=== PATIENT | female | born 1955 | race Caucasian/White ===

== ENCOUNTER → 2019-10-17 16:11 | Outpatient (CLI) | payer OTHER, SELFPAY ==
--- NOTE | ~2019-10-17 | MM_ITS ---
EXAMINATION: MM screening [facility] BI w sharif HISTORY: Screening mammogram TECHNIQUE: Craniocaudal and mediolateral oblique 3-D tomosynthesis images were obtained and synthetic 2-D images were generated. CAD analysis was submitted and interpreted. COMPARISON: 09/23/2018, 09/03/2016, 07/13/2015 bilateral digital screening mammogram examinations BREAST PARENCHYMAL COMPOSITION: There are scattered areas of fibroglandular density. FINDINGS: There is no evidence of suspicious mass, calcification, or architectural distortion to sugg est malignancy in either breast. There has been no suspicious interval change. IMPRESSION: 1. No mammographic evidence of malignancy. 2. Recommend routine screening mammography in one year. BI-RADS Category 1: Negative Reviewed, dictated and finalized at location A.
== END ==
PROVIDERS: PCP Family Medicine Adolescent Medicine; Visit Provider Student in an Organized Health Care Education/Training Program
DX: Z12.31 Encounter for screening mammogram for malignant neoplasm of breast (principal)
CPT/HCPCS: 77063; 77067

== ENCOUNTER 2020-06-18 01:47 | Outpatient (CLI) | payer OTHER, SELFPAY ==
[2020-06-18 20:40] LABS: SARS-CoV-2 RNA PCR Negative
== END 2020-06-18 01:48 | disposition home or self-care (01) ==
LOC: ANHCOVIDDT 01:48
PROVIDERS: PCP Family Medicine Adolescent Medicine; Visit Provider Otolaryngology
DX: Z01.812 Encounter for preprocedural laboratory examination (principal); Z11.59 Encounter for screening for other viral diseases
CPT/HCPCS: 87635; C9803; U0003

== ENCOUNTER 2020-06-18 10:04 | Outpatient (CLI) | payer OTHER, SELFPAY ==
--- NOTE | 2020-06-18 10:07 | ECG_ITS ---
Measurements Intervals [place] Rate: 78 P: 24 WA: 160 QRS: -3 QRSD: 89 T: 55 QT: 355 QTc: 405 Interpretive Statements SINUS RHYTHM VOLTAGE CRITERIA FOR LVH BORDERLINE R WAVE PROGRESSION, ANTERIOR LEADS NONSPECIFIC T-WAVE ABNORMALITY- DIFFUSE LEADS BASELINE ARTIFACT- I, II, III, AVR, AVL BORDERLINE ECG Electronically Signed On 06-18-2020 13:45:25 BUSINESS SERVICES SALES REPRESENTATIVE by Kain Romo D.O.
== END 2020-06-18 10:05 | disposition home or self-care (01) ==
LOC: ANHSURGERY 10:07
PROVIDERS: PCP Family Medicine Adolescent Medicine; Visit Provider Otolaryngology
DX: Z01.810 Encounter for preprocedural cardiovascular examination (principal); E78.00 Pure hypercholesterolemia, unspecified
CPT/HCPCS: 87635; 93005; C9803; U0003

== ENCOUNTER 2020-06-21 00:39 | Day surgery (SDC) | payer OTHER, SELFPAY ==
[2020-06-12 14:22] VITALS: BMI 33.3
--- NOTE | 2020-06-20 06:11 | PM.HPGS ---
History of Present Illness History of Present Illness Consent: Risks, benefits, and alternatives have been discussed and questions answered. Patient agrees to proceed with procedure. Chief complaint: nasal septal deviation Narrative: Richelle Madrigal is a 64 year old female has a deviated septum unable to breathe out of the side of her nose she has been unresponsive to medical management and is admitted for septo Review of Systems Review of Systems: All systems reviewed & are unremarkable except as noted in HPI and below Allergic/Immunologic: Comments: plan is a septoplasty [facility] Social History Social History (Updated 05/31/20 @ 14:44 by Isi Lopez [facility]) Smoking status: Never smoker Tobacco type: cigarettes Second hand tobacco smoke exposure: No Alcohol intake: current Substance use: never Spiritual care concerns: No Meds Home Medications and Allergies Home Medications Medication Instructions Recorded Confirmed Type atorvastatin 10 mg tablet 10 mg PO DAILY 05/31/20 06/12/20 History buspirone 15 mg tablet 15 mg PO BID 05/31/20 06/12/20 History diclofenac sodium 75 mg 75 mg PO BID 05/31/20 06/12/20 History tablet,delayed release mirtazapine 30 mg tablet 30 mg PO HS 05/31/20 06/12/20 History oxybutynin chloride 5 mg 10 mg PO DAILY 05/31/20 06/12/20 History tablet,extended release 24 hr topiramate 50 mg tablet 50 mg PO BID 05/31/20 06/12/20 History venlafaxine 100 mg tablet 100 mg PO BID 05/31/20 06/12/20 History Vitamin Code 2 cap PO DAILY 06/12/20 History ascorbic acid (vitamin C) [Vitamin 1 g PO DAILY 06/12/20 06/12/20 History C] flaxseed oil 1,000 mg PO DAILY 06/12/20 06/12/20 History levothyroxine 75 mcg PO DAILY 06/12/20 06/12/20 History magnesium 250 mg PO DAILY 06/12/20 06/12/20 History omega-3 fatty acids [[place] 3] 1,000 mg PO DAILY 06/12/20 06/12/20 History Allergies Allergy/AdvReac Type Severity Reaction Status Date / Time No Known Allergies Allergy Verified 06/12/20 14:23
--- NOTE | 2020-06-21 06:20 | WPDHPUPDATE1 ---
History and Physical Update Update Date/Time: 06/21/20 06:20 History and Physical has been reviewed, including an updated exam of the patient. There are NO changes in the patient's condition. Risks, benefits, and alternatives have been discussed and questions answered. Patient agrees to proceed with procedure.
[2020-06-21 07:00] VITALS: BP 126/72; PULSE 79; RESP 18; TEMP 36.2; O2SAT 97
[2020-06-21] MEDS: LACTATED RINGERS 1,000 ML 30 ML IV CONT (07:37)
[2020-06-21] MEDS: ACETAMINOPHEN 500 MG TABLET 1000 MG PO (07:38)
--- NOTE | 2020-06-21 07:50 | P.PNAN_ITS ---
Anes - Initial Pre Proc Eval Procedure: Operation Date: 06/21/20 08:15 Proposed Procedures p Septoplasty - Vinod Gutierrez MD Date/Time: 06/21/20 07:50 Surgeon: Vinod Gutierrez MD Pre Op Diagnosis: nasal septal deviation Patient Data Age: 64 Gender: F Height: 5 ft 2 in Weight: 82.55 kg Allergies Allergy/AdvReac Type Severity Reaction Status Date / Time No Known Allergies Allergy Verified 06/12/20 14:23 Home Medications Medication Instructions Recorded Confirmed Type atorvastatin 10 mg tablet 10 mg PO DAILY 05/31/20 06/12/20 History buspirone 15 mg tablet 15 mg PO BID 05/31/20 06/12/20 History diclofenac sodium 75 mg 75 mg PO BID 05/31/20 06/12/20 History tablet,delayed release mirtazapine 30 mg tablet 30 mg PO HS 05/31/20 06/12/20 History oxybutynin chloride 5 mg 10 mg PO DAILY 05/31/20 06/12/20 History tablet,extended release 24 hr topiramate 50 mg tablet 50 mg PO BID 05/31/20 06/12/20 History venlafaxine 100 mg tablet 100 mg PO BID 05/31/20 06/12/20 History Vitamin Code 2 cap PO DAILY 06/12/20 History ascorbic acid (vitamin C) [Vitamin 1 g PO DAILY 06/12/20 06/12/20 History C] flaxseed oil 1,000 mg PO DAILY 06/12/20 06/12/20 History levothyroxine 75 mcg PO DAILY 06/12/20 06/12/20 History magnesium 250 mg PO DAILY 06/12/20 06/12/20 History omega-3 fatty acids [[place] 3] 1,000 mg PO DAILY 06/12/20 06/12/20 History Patient hx anesthesia problems: none Family hx anesthesia problems: none PMFSH Past Medical History Medical History Hypothyroid WILMER (obstructive sleep apnea) Traumatic brain injury Social History Social History Smoking status: Never smoker Tobacco type: cigarettes Second hand tobacco smoke exposure: No Alcohol intake: current Substance use: never Spiritual care concerns: No Anes - Eval Final PreProcedure Day of Procedure 06/21/20 07:50 Patient weight: obese Heart: regular rate and rhythm Lungs: clear to auscultation Airway: Mallampati scale class II Neurological: other (alert) Last oral intake: >/= 8 hours ASA classification: III Emergent: no Anesthetic plan: proceed Anesthesia type and monitoring: general ETT and standard monitoring Informed Consent: The patient's anesthetic plan and its attendant risks and benefits were discussed with the patient/family/POA. Questions were solicited and answers provided to the satisfaction of the patient/family/POA.
[2020-06-21] MEDS: COCAINE HCL (*CRX) 4% TOP SOLN 4 ML VIAL 1 APPLIC TOPICAL (08:02)
[2020-06-21] MEDS: LIDO 1%/EPINEPHRINE 1:100,000 20 ML VIAL INFILTRATE (08:02)
--- NOTE | 2020-06-21 08:22 | PM.PROC ---
Procedure Note - Detailed Date of procedure: 06/21/20 Pre-op diagnosis: nasal septal deviation Post-op diagnosis: same Procedure performed: Septoplasty Description of procedure: Patient was prepped and draped in usual fashion after general anesthesia. The nose was injected with xylocaine with Adrenalin and packed with Neosporin Charanjit-Synephrine on cottonoids. A [] sammy transfixation was made anterior and posterior tunnel was elevated. The bony cartilage junction . The bony deviation was removed in its entirety. Swung the cardilege and bone to the midline nose open on both sides. The nose was then packed with Surgicel patient awakened returned to recovery good condition. Anesthesia: GLMA and GETA Surgeon: Vinod Gutierrez MD Estimated blood loss (mL): 5 Drains: No Packing: Yes Complications: No immediate complications Condition: stable Disposition: same day Findings: Septum deviated
[2020-06-21 08:26] VITALS: BP 101/69; PULSE 70; RESP 14; TEMP 36.3; O2SAT 95
[2020-06-21 08:40] VITALS: BP 117/92; PULSE 85; RESP 14; O2SAT 93
[2020-06-21 08:55] VITALS: BP 112/78; PULSE 79; RESP 14; O2SAT 98
[2020-06-21 09:00] VITALS: BP 114/74; PULSE 80
[2020-06-21 09:30] VITALS: BP 121/80; PULSE 80
== END 2020-06-21 09:55 | disposition home or self-care (01) ==
PROVIDERS: PCP Family Medicine Adolescent Medicine; Visit Provider Otolaryngology
PROC: (CPT 30520; principal; 2020-06-21 08:15)
DX: J34.2 Deviated nasal septum (principal); E03.9 Hypothyroidism, unspecified; G47.33 Obstructive sleep apnea (adult) (pediatric); Z87.820 Personal history of traumatic brain injury; E66.9 Obesity, unspecified; Z68.33 Body mass index [BMI] 33.0-33.9, adult
CPT/HCPCS: 30520; A9270; J0330; J1100; J2405; J2704; J3010; J7120

== ENCOUNTER → 2020-12-06 15:00 | Outpatient (CLI) | payer OTHER, SELFPAY ==
--- NOTE | ~2020-12-06 | MM_ITS ---
EXAMINATION: MM screening [facility] BI w sharif HISTORY: Screening mammogram TECHNIQUE: Craniocaudal and mediolateral oblique 3-D tomosynthesis images were obtained and synthetic 2-D images were generated. CAD analysis was submitted and interpreted. COMPARISON: 10/27/2019, 09/23/2018 BREAST PARENCHYMAL COMPOSITION: There are scattered areas of fibroglandular density. FINDINGS: Stable mild fibroglandular asymmetry. There is no evidence of suspicious mass, calcificatio n, or architectural distortion to suggest malignancy in either breast. There has been no suspicious i nterval change. IMPRESSION: 1. No mammographic evidence of malignancy. 2. Recommend routine screening mammography in one year. BI-RADS Category 1: Negative Reviewed, dictated and finalized at location A.
== END ==
PROVIDERS: PCP Family Medicine Adolescent Medicine; Visit Provider Obstetrics & Gynecology
DX: Z12.31 Encounter for screening mammogram for malignant neoplasm of breast (principal)
CPT/HCPCS: 77063; 77067

== ENCOUNTER → 2021-01-16 13:40 | Outpatient (CLI) | payer OTHER, SELFPAY ==
--- NOTE | ~2021-01-16 | XR_ITS ---
XR foot RT min 3V DATE: 01/16/2021 13:59 INDICATION: Chronic right foot pain TECHNIQUE: 4 views COMPARISON: None FINDINGS: There is moderate osteoarthritic change at the tibiotalar joint and first metatarsophalange al joint. There is plantar and posterior calcaneal enthesopathy. Osteopenia. No fracture or dislocation, periosteal reaction or bone destruction. IMPRESSION: Osteoarthritis at tibiotalar and first metatarsophalangeal joint Calcaneal enthesopathy Reviewed, dictated and finalized at location A.
== END ==
PROVIDERS: PCP Family Medicine Adolescent Medicine; Visit Provider Family Medicine Adolescent Medicine
DX: M19.071 Primary osteoarthritis, right ankle and foot (principal); M77.31 Calcaneal spur, right foot
CPT/HCPCS: 73630

== ENCOUNTER → 2022-07-07 15:19 | Outpatient (CLI) | payer OTHER, SELFPAY ==
--- NOTE | ~2022-07-07 | XR_ITS ---
EXAMINATION: XR shunt series DATE: 07/07/2022 15:58 INDICATION: Hydrocephalus. TECHNIQUE: A shunt series consisting of frontal and lateral views of the head, neck, chest, and abdom en for a total of 9 radiographs was obtained. COMPARISON: None. FINDINGS: There is a right-sided ventriculoperitoneal shunt with tip in left abdomen. No break or kin k of the radiopaque portions. There is an old healed right rib fracture. There are no dilated loops o f bowel. There is a large volume of stool in the colon. IMPRESSION: 1. Intact ventriculoperitoneal shunt. Reviewed, dictated and finalized at location A. OM TURNING LATHE TURNER
== END ==
PROVIDERS: PCP Family Medicine Adolescent Medicine; Visit Provider Physician Assistant
DX: Z45.41 Encounter for adjustment and management of cerebrospinal fluid drainage device (principal)
CPT/HCPCS: 70250; 71045; 74018

== ENCOUNTER → 2022-08-07 15:18 | Outpatient (CLI) | payer OTHER, SELFPAY ==
--- NOTE | ~2022-08-07 | XR_ITS ---
EXAMINATION: XR knee LT 2V DATE: 08/07/2022 15:53 INDICATION: Left knee pain. TECHNIQUE: 2 views of left knee were obtained. COMPARISON: None. FINDINGS: Bone alignment is normal. No fracture. There is moderate osteoarthritis of medial and vivas lofemoral compartments. No knee joint effusion. There are loose bodies in the knee joint posteriorly. IMPRESSION: 1. Moderate left knee osteoarthritis. 2. Left knee joint loose bodies. Reviewed, dictated and finalized at location A. ICH FARM WORKER
--- NOTE | ~2022-08-07 | XR_ITS ---
EXAMINATION: XR knee RT 2V DATE: 08/07/2022 15:53 INDICATION: Right knee pain. TECHNIQUE: 2 views of right knee were obtained. COMPARISON: None. FINDINGS: Bone alignment is normal. No fracture. There is moderate osteoarthritis of medial and vivas lofemoral compartments and mild osteoarthritis of lateral compartment. No knee joint effusion. IMPRESSION: 1. Moderate right knee osteoarthritis. Reviewed, dictated and finalized at location A. IFIED WELDER
== END ==
PROVIDERS: PCP Family Medicine Adolescent Medicine; Visit Provider Physician Assistant
DX: M25.562 Pain in left knee (principal); M25.561 Pain in right knee; M17.0 Bilateral primary osteoarthritis of knee; M23.42 Loose body in knee, left knee
CPT/HCPCS: 73560

== ENCOUNTER 2023-07-13 09:47 | Outpatient (CLI) | payer OTHER, SELFPAY ==
--- NOTE | 2023-07-13 10:50 | ECG_ITS ---
Measurements Intervals [place] Rate: 68 P: 11 NC: 150 QRS: -12 QRSD: 91 T: 8 QT: 385 QTc: 409 Interpretive Statements SINUS RHYTHM VOLTAGE CRITERIA FOR LVH [MEETS CRITERIA IN ONE OF: R(aVL), S(V1), R(V5), R(V5/V6)+S(V1)] POOR R-WAVE PROGRESSION NONSPECIFIC T-WAVE ABNORMALITY ABNORMAL ECG WARNING: DATA QUALITY MAY AFFECT INTERPRETATION COMPARED TO ECG 06/18/2020 10:38:14 NO SIGNIFICANT CHANGES Electronically Signed On 07-13-2023 15:20:50 CONTROL SYSTEM COMPUTER SCIENTIST by Coy Daniel M.D.
[2023-07-13 11:15] LABS: Basophils Absolute Auto 0.1 K/mm3 (0.0-0.1); Basophils Percent Auto 1.5 % (0.2-1.2); Eosinophils Absolute Auto 0.3 K/mm3 (0-0.3); Eosinophils Percent Auto 4.2 % (0-4.4); Hemoglobin 14.1 g/dL (12.0-15.0); Immature Granulocyte Absolute 0.06 K/mm3 (0.00-0.031); Immature Granulocyte Percent A 0.9 % (0-0.5); Lymphocytes Absolute Auto 1.61 K/mm3 (0.9-3.2); Lymphocytes Percent Auto 23.9 % (18.3-44.2); Mean Corpuscular HGB Conc 32.8 g/dl (32-36); Mean Corpuscular Hemoglobin 30.3 pg (26-34); Mean Corpuscular Volume 92.5 fl (80-100); Mean Platelet Volume 10.8 fl (7.4-10.4); Monocytes Absolute Auto 0.9 K/mm3 (0.1-0.6); Monocytes Percent Auto 13.2 % (2.6-8.5); Neutrophils Absolute Auto 3.8 K/mm3 (1.3-6.7); Neutrophils Percent Auto 56.3 % (45.5-73.1); Platelet Count Result 209 k/mm3 (150-375); Red Blood Count 4.65 M/mm3 (4.2-5.4); Red Cell Distribution Width 12.8 % (11.5-14.5); White Blood Count 6.7 K/mm3 (4.5-10.0)
[2023-07-13 11:28] LABS: Hemoglobin A1C 4.7 % (<5.7); Urine Cotinine NEGATIVE
[2023-07-13 11:30] LABS: Albumin Level 4.5 g/dL (3.5-5.1); Anion Gap 9 mmol/L (8-16); Blood Urea Nitrogen 12 mg/dL (7-17); Carbon Dioxide 24 mmol/L (22-30); Chloride 111 mmol/L (98-107); Estimated Glomerular Filt Rate > 60; Glucose 83 mg/dL (65-110); Potassium 3.8 mmol/L (3.4-5.0); Sodium 144 mmol/L (137-145)
== END 2023-07-13 09:48 | disposition home or self-care (01) ==
PROVIDERS: PCP Family Medicine Adolescent Medicine; Visit Provider Orthopaedic Surgery
DX: Z01.818 Encounter for other preprocedural examination (principal); M17.11 Unilateral primary osteoarthritis, right knee; R94.31 Abnormal electrocardiogram [ECG] [EKG]
CPT/HCPCS: 80048; 80307; 82040; 83036; 85025; 86850; 86880; 86900; 86901; 86902; 87081; 93005

== ENCOUNTER 2023-08-08 09:56 | Observation (INO) | payer OTHER, SELFPAY ==
--- NOTE | 2023-07-13 09:49 | PC.NURSE ---
PRE-OP INSTRUCTIONS, PLEASE READ CAREFULLY Report to the Outpatient Waiting Room, entrance under the green pavilion located off [facility], at time _0600_ on date _08/07/23_. Planned Procedure Time: _0730_. PACK A SMALL OVERNIGHT BAG AND LEAVE IT IN THE CAR ALONG WITH YOUR WALKER Time changes happen often and if your time is changed the preop area will call you the afternoon before. - You and your visitor will be asked to self-screen and do not enter if you have any COVID symptoms. - A mask is optional within the hospital at this time. -VISITING HOURS 8AM-8PM Patients may have clear liquids (water, carbonated beverages, clear teas, apple juice) until 3 hours prior to surgery (0430 AM) with a maximum of 20 ounces. - No food from midnight until time of surgery Take the following medications with a SIP of water the morning of surgery: _BUSPIRONE, LEVOTHYROXINE, MEMANTINE, SERTRALINE, TOPIRAMATE, VENLAFAXINE & SUMATRIPTAN, TRAMADOL, TYLENOL IF NEEDED_ DO NOT STOP ANY OF YOUR OTHER PRESCRIPTION MEDICATIONS PRIOR TO SURGERY ?EXCEPT THE FOLLOWING Medications to discontinue per DR. PRECIADO - _DICLOFENAC 7 DAYS PRIOR TO SURGERY, Date to take last dose 07/30/23_ Please no make-up, nail croatian, hairspray, perfume, deodorant, or body powder the day of surgery. No jewelry (including any body piercings) or valuables the day of surgery, leave them at home. Please take a shower or bath the night before, or the morning of, surgery with an antibacterial soap. Wear comfortable, loose fitting clothing. - Jewelry must be removed prior to entering the operating room. Rings and piercings that are not removed may be cut off. - The hospital will not accept responsibility for valuables. - Please leave all valuables, including medications, at home the day of surgery. If you are going home after surgery, a licensed driver examiner must drive you home. - NO public transportation without another adult if you receive anesthesia. - We recommend that an adult stay with you for 24 hours following discharge. - We also recommend that you do not drive, make important decision, drink alcoholic beverages, or take any drugs that were not prescribed by your health care provider for at least 24 hours after your discharge time. Follow any additional instructions given to you from your surgeon. If you or anyone in your household have experienced Covid symptoms in the past week, please notify your surgeon or the nurse liaison at the phone number below for possible testing. Instructions given to _PATIENT_and asked if any additional questions and then verbalized understanding. Patient advised to call surgeon office or pre surgery nurse liaison [phone] if any additional questions.
[2023-07-13 10:22] VITALS: BP 134/68; PULSE 82; RESP 18; TEMP 36.7; O2SAT 98; BMI 32.8
--- NOTE | 2023-08-05 08:01 | PM.IMHP ---
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 She has been having symptoms in the knee for several years. She has been getting cortisone injections in the knee last 1 in March of this year. Gave her minimal improvement of her symptoms. She feels at this point she is ready to proceed with total knee arthroplasty. She does take diclofenac 75 mg twice daily. She has severe medial compartment osteoarthritis both knees. Review of Systems Review of Systems: All systems reviewed & are unremarkable except as noted in HPI and below PMFSH Past Medical History Medical History Hypothyroid WILMER (obstructive sleep apnea) Traumatic brain injury Surgical History Surgical History History of lumbar surgery 2012 History of nasal septoplasty 06/29 Family History Family History Father Lung cancer Acute myocardial infarction Heart disease Hypertension Mother Liver cancer Depression Social History Social History Smoking packs per day: 1 Smoking cigarettes per day: 20.0 Years smoked: 4 Smoking pack-years: 4.00 Smoking status: Former smoker Tobacco type: cigarettes Second hand tobacco smoke exposure: No Smoking end date: 08/10/75 Additional smoking assessment comments: STATES SMOKED 1PK/WEEK/4YRS-QUIT 1975, DENIES ALL FORMS OF TOBACCO USE Alcohol intake: current Alcohol use details: RARELY - MAYBE 1-2 YR Substance use: never Substance use type: does not use Lack of Transportation: No Lack of Food: Never True Current Housing: I Have Housing Concerned About Future Housing: No Difficulty Paying Gas/Electric Bills: No Difficulty Paying for Meds: No Currently Unemployed: No Education: Associate Degree Difficulty w/ Childcare or Family Care: No Living arrangements: with family Additional living arrangements comments: LIVES WITH SPOUSE - [place] Occupation/Education: retired Gender identity (if verbalized by the patient): Female Sexual Orientation (if Verbalized by the Patient): Straight or Heterosexual Spiritual care concerns: No Agree to blood products: Yes Meds Home Medications and Allergies Home Medications Medication Instructions Recorded Confirmed Type mirtazapine 30 mg tablet 30 mg PO HS #90 tabs 09/19/21 07/14/23 Rx venlafaxine 100 mg tablet 100 mg PO BID #180 tabs 09/19/21 07/14/23 Rx buspirone 15 mg tablet See Rx Instructions .Route 04/17/22 07/14/23 Rx .COMPLEX #180 tabs donepezil 5 mg tablet 10 mg PO QHS 08/18/22 07/14/23 History memantine 5 mg tablet See Rx Instructions PO BID 08/18/22 07/14/23 History topiramate 50 mg tablet 50 mg PO BID #180 tabs 04/15/23 07/14/23 Rx levothyroxine 75 mcg tablet See Rx Instructions .Route 07/05/23 07/14/23 Rx .COMPLEX #90 tabs acetaminophen 500 mg tablet 1,000 mg PO Q6H PRN Pain 07/13/23 07/14/23 History ascorbic acid (vitamin C) 1,000 mg 1 g PO DAILY 07/13/23 07/14/23 History tablet (Vitamin C) magnesium 200 mg tablet 200 mg PO DAILY 07/13/23 07/14/23 History sertraline 50 mg tablet 50 mg PO DAILY 07/13/23 07/14/23 History mirabegron 25 mg tablet,extended 25 mg PO DAILY #90 tabs 07/14/23 07/14/23 Rx release 24 hr (Myrbetriq) atorvastatin 10 mg tablet 10 mg PO DAILY #90 tabs 07/15/23 Rx diclofenac sodium 75 mg See Rx Instructions .Route 07/15/23 Rx tablet,delayed release .COMPLEX #180 tabs clobetasol 0.05 % topical ointment 1 applic topical BID #60 grams 07/27/23 Rx sumatriptan succinate 100 mg tablet See Rx Instructions PO .COMPLEX 07/27/23 Rx PRN Migraine Headache #9 tabs tramadol 50 mg tablet 100 mg PO TID PRN pain #180 t
--- NOTE | 2023-08-06 14:41 | WPDANESEPPF ---
Anes - Initial Pre Proc Eval Procedure: Operation Date: 08/07/23 07:30 Proposed Procedures p Right Total Knee Arthroplasty - Edward Rowe MD Date/Time: 08/06/23 14:41 Surgeon: Edward Rowe MD Pre Op Diagnosis: O A Rt Knee Patient Data Age: 67 Gender: F Height: 1.59 m Weight: 82.6 kg Last Vital Signs Temp 98.1 F 07/13/23 10:22 Pulse 82 07/13/23 10:22 Resp 18 07/13/23 10:22 BP 134/68 07/13/23 10:22 Pulse Ox 98 07/13/23 10:22 O2 Del Method Room Air 07/13/23 10:22 Allergies Allergy/AdvReac Type Severity Reaction Status Date / Time No Known Allergies Allergy Verified 07/14/23 10:11 Home Medications Medication Instructions Recorded Confirmed Type mirtazapine 30 mg tablet 30 mg PO HS #90 tabs 09/19/21 07/14/23 Rx venlafaxine 100 mg tablet 100 mg PO BID #180 tabs 09/19/21 07/14/23 Rx buspirone 15 mg tablet See Rx Instructions .Route 04/17/22 07/14/23 Rx .COMPLEX #180 tabs donepezil 5 mg tablet 10 mg PO QHS 08/18/22 07/14/23 History memantine 5 mg tablet See Rx Instructions PO BID 08/18/22 07/14/23 History topiramate 50 mg tablet 50 mg PO BID #180 tabs 04/15/23 07/14/23 Rx levothyroxine 75 mcg tablet See Rx Instructions .Route 07/05/23 07/14/23 Rx .COMPLEX #90 tabs acetaminophen 500 mg tablet 1,000 mg PO Q6H PRN Pain 07/13/23 07/14/23 History ascorbic acid (vitamin C) 1,000 mg 1 g PO DAILY 07/13/23 07/14/23 History tablet (Vitamin C) magnesium 200 mg tablet 200 mg PO DAILY 07/13/23 07/14/23 History sertraline 50 mg tablet 50 mg PO DAILY 07/13/23 07/14/23 History mirabegron 25 mg tablet,extended 25 mg PO DAILY #90 tabs 07/14/23 07/14/23 Rx release 24 hr (Myrbetriq) atorvastatin 10 mg tablet 10 mg PO DAILY #90 tabs 07/15/23 Rx diclofenac sodium 75 mg See Rx Instructions .Route 07/15/23 Rx tablet,delayed release .COMPLEX #180 tabs clobetasol 0.05 % topical ointment 1 applic topical BID #60 grams 07/27/23 Rx sumatriptan succinate 100 mg tablet See Rx Instructions PO .COMPLEX 07/27/23 Rx PRN Migraine Headache #9 tabs tramadol 50 mg tablet 100 mg PO TID PRN pain #180 tabs 08/04/23 Rx Patient hx anesthesia problems: none Family hx anesthesia problems: none Results Review: All pre-operative results and documents have been reviewed as part of the pre-operative evaluation. [facility] Past Medical History Medical History Hypothyroid WILMER (obstructive sleep apnea) Traumatic brain injury Surgical History Surgical History History of lumbar surgery 2012 History of nasal septoplasty 06/29 Family History Family History Father Lung cancer Acute myocardial infarction Heart disease Hypertension Mother Liver cancer Depression Social History Social History Smoking packs per day: 1 Smoking cigarettes per day: 20.0 Years smoked: 4 Smoking pack-years: 4.00 Smoking status: Former smoker Tobacco type: cigarettes Second hand tobacco smoke exposure: No Smoking end date: 08/10/75 Additional smoking assessment comments: STATES SMOKED 1PK/WEEK/4YRS-QUIT 1975, DENIES ALL FORMS OF TOBACCO USE Alcohol intake: current Alcohol use details: RARELY - MAYBE 1-2 YR Substance use: never Substance use type: does not use Lack of Transportation: No Lack of Food: Never True Current Housing: I Have Housing Concerned About Future Housing: No Difficulty Paying Gas/Electric Bills: No Difficulty Paying for Meds: No Currently Unemployed: No Education: Associate Degree Difficulty w/ Childcare or Family Care: No Living arrangements: with family Additional living arrangements comments: LIVES WITH SPOUSE - [place] Occupation/Education: retired Gender identity (if verbalized by the patient): Female Sexual Or
[2023-08-07] VITALS (16 sets, daily range): BP systolic 124–161; BP diastolic 61–90; PULSE 70–89; RESP 10–18; TEMP 35.9–37.1; O2SAT 94–99
[2023-08-07] MEDS: ACETAMINOPHEN 500 MG TABLET 1000 MG PO (07:05)
[2023-08-07] MEDS: TRANEXAMIC ACID 1,000MG/ISO100 1,000 MG/100 ML BAG 200 MG IVPB (07:05)
[2023-08-07] MEDS: VANCOMYCIN 1,250 MG/NS 250 ML BAG 166.67 MG IVPB (07:05)
--- NOTE | 2023-08-07 07:09 | WPDHPUPDATE1 ---
History and Physical Update Update Date/Time: 08/07/23 07:09 History and Physical has been reviewed, including an updated exam of the patient. There are NO changes in the patient's condition. Risks, benefits, and alternatives have been discussed and questions answered. Patient agrees to proceed with procedure.
--- NOTE | 2023-08-07 07:14 | WPDHPUPDATE1 ---
History and Physical Update Update Date/Time: 08/07/23 07:14 History and Physical has been reviewed, including an updated exam of the patient. There are NO changes in the patient's condition. Risks, benefits, and alternatives have been discussed and questions answered. Patient agrees to proceed with procedure Patient requests susanne shot left knee as well. Has OA left knee and right knee
[2023-08-07] MEDS: ceFAZolin 2 GM/D5W 50 ML 2 GM/50 ML BAG IVPB (07:33)
[2023-08-07] MEDS: LACTATED RINGERS 1,000 ML 30 ML IV CONT ×2 (07:37→10:34)
[2023-08-07] MEDS: ceFAZolin SODIUM 1 GM VIAL 3 GM (08:24)
[2023-08-07] MEDS: methylPREDNISolone ACETATE 80 MG/ML VIAL I-ARTICULR (08:27)
[2023-08-07] MEDS: GENTAMICIN BONE CEMENT REFOBACIN 1 EACH TOPICAL (08:28)
[2023-08-07] MEDS: TRANEXAMIC ACID 1,000 MG/10 ML AMPUL 1000 MG IV PUSH (10:06)
[2023-08-07] MEDS: ceFAZolin SODIUM 1 GM VIAL 2 GM IV PUSH (10:06)
[2023-08-07] MEDS: fentaNYL CITRATE INJ (*CRX) 100 MCG/2 ML VIAL 25 MCG IV PUSH ×4 (10:10→11:10)
--- NOTE | 2023-08-07 10:30 | W.PM.PROC2 ---
Procedure Note - Detailed Date of Procedure 08/08/23 Pre-op Diagnosis O A Rt Knee, oa left knee Post-op Diagnosis Same Procedure Performed Cortisone injection left knee, right total knee arthroplasty Surgeon Edward Rowe MD [employer] Science Teacher yani Anesthesia General Description of Procedure Patient was brought to the operating room and general anesthesia was administered. The left knee was prepped with the chlorhexidine prep and 80 mg of Depo-Medrol and 4 cc 1% lidocaine were injected into the left knee through a lateral parapatellar approach. The right knee was prepped draped usual fashion. Under anesthesia she had full extension. She received 2 g of Ancef weight based vancomycin 1 g of tranexamic acid preoperatively. Limb was exsanguinated tourniquet elevated to 300 mmHg. A 7 in longitudinal midline incision was used and a vastus medialis splitting approach utilized splitting the vastus medialis at the superior pole of patella. Infrapatellar partial fat pad excision was performed and quadriceps synovectomy carried out. Patella was moderately arthritic. It measured 22 mm in thickness and was cut to 16 mm. Bone quality was excellent. Protector cap was applied. A guide mendez was inserted down the femoral canal after aspiration of canal contents using the 5 degree valgus cutting bushing 9 mm of bone removed from the distal femur. This removed about 7 laterally. Next the tibial plateau was cut. Cut was made but a mm underneath the wear area on the medial tibial plateau. There was chronic marginal stress fracture fragment in the anterolateral margin of the tibial plateau about 3 mm wide and this was excised. The cut was made perpendicular to the axis of the tibia. Meniscal remnants were excised the PCL recessed. At 90? flexion gap was 10 mm medially and 13 mm laterally with the spacer blocks. We set the femoral drill guide at 4? of external rotation which matched Whitesides line and posterior referencing pinholes were placed. The size 62.5 vanguard cutting block was applied AP and chamfer cuts were made. The 62.5 was about a mm and half too wide distally. It was a little bit proud anteriorly as well. Tibia was sized to a 67 which fit line to line anteromedial to posterolateral. This was punched we trialed with the 10 insert. This came out to full extension was a little bit loose at 90?. In extension there was a mm of play medially and laterally. At this point I elected to downsize the femoral component and the size 60 AP cutting block was applied in the anterior cut the anterior chamfer cuts were revisited in the 60 fit nicely. Posterior osteophytes removed the distal femur. We trialed with the 11 and this had appropriate stability 90? and with the arthrotomy towel clips allowed 130? of gravity flexion with no anterior translation in this position. However, the knee had a positive bounce lacked in a couple of degrees of extension with no play medially or laterally. An additional mm bone was removed the distal femur chamfer cuts revisited and on read trialing the came out to full extension with a mm of play both medially laterally. Lug holes were drilled femoral trial and the patella was sized to a 31 thin restoring composite thickness to 22 mm. The bony surfaces were prepared with a step drill insert bone was quite dense. Bony surfaces thoroughly irrigated dried. Using 2 batches of methylmethacrylate 1 the gentamicin powder the cement was applied the 67 tibia and the size 60 right CR femur cement applied the tibial plateau and pressurized 67 tibial component fully seated cement applied the femur the femoral component seated the knee brought into extension with a 12 mm 5 1 insert for cement pressurization. Thirty thin patella cemented. After cement hardening excess cement was removed. The tourniquet was let down at about 105 minutes. We trialed with the 11 insert and this was appropriate in all positions and the 12 was too tight in all positio
--- NOTE | 2023-08-07 10:43 | PM.OP ---
Procedure Note - Brief Procedure Note - Brief Date of procedure: 08/07/23 O A Rt Knee Procedure performed: Right total knee arthroplasty Surgeon: ANDRA Doan Description of procedure: 67-year-old female underwent right total knee arthroplasty on 08/07. I was involved in the procedure including positioning the patient on the OR table in 1st assisting through the time of surgery. Total time spent was 2-1/2 hours
--- NOTE | 2023-08-07 12:25 | ADMGEN ---
This patient, Richelle Madrigal, was admitted to 2 Medical Room 259-. Patient/family oriented to hospital policies and general routines including ID bracelet, bed and alarms, visiting hours, pain management, procedures, bathroom and other care routines, personal items, smoking policy, room service/diet, and visiting hours. Information on how to activate the Rapid Response Team has been discussed. Patient/Family are encouraged to report perceived risks to care and to ask questions if they do not understand what they are told or what they should do.
[2023-08-07] MEDS: SODIUM CHLORIDE 0.9% IV 1,000 ML 125 ML IV CONT (12:37)
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
[2023-08-07] MEDS: oxyCODONE HCL (*CRX) 5 MG TAB IR PO ×2 (13:39→21:33)
[2023-08-07] MEDS: ACETAMINOPHEN 325 MG TABLET 650 MG PO ×2 (14:46→19:54)
[2023-08-07] MEDS: ceFAZolin 1 GM/NS 50 ML 1 GM/50 ML BAG IVPB (17:01)
[2023-08-07] MEDS: SENNA/DOCUSATE SODIUM TABLET 2 TAB PO (17:07)
[2023-08-07] MEDS: TOPIRAMATE 25 MG TABLET 50 MG PO (17:08)
[2023-08-07] MEDS: MEMANTINE 5 MG TABLET PO (17:08)
[2023-08-07] MEDS: KETOROLAC 15 MG/ML VIAL (*BKC) IV PUSH (17:54)
[2023-08-07] MEDS: VENLAFAXINE HCL 25 MG TABLET PO (18:01)
[2023-08-07] MEDS: VENLAFAXINE HCL 75 MG TABLET PO (18:01)
[2023-08-07] MEDS: busPIRone HCL 5 MG TABLET BY MOUTH (18:01)
[2023-08-07] MEDS: VANCOMYCIN 1,000 MG/NS 250 ML 1,000 MG/250 ML BAG 250 MG IVPB (18:43)
[2023-08-07] MEDS: MIRTAZAPINE 30 MG TABLET PO (19:54)
[2023-08-07] MEDS: FAMOTIDINE 20 MG TABLET PO (19:54)
--- NOTE | ~2023-08-08 | XR_ITS ---
EXAMINATION: [id number] DATE: 08/07/2023 10:36 VP [facility] INDICATION: Right total knee arthroplasty TECHNIQUE: 2 views right knee FINDINGS: There is a right total knee arthroplasty in expected position. Subcutaneous gas with fluid and air in the joint are consistent with recent surgery. No evidence of periprosthetic fracture. IMPRESSION: 1. Recent right total knee arthroplasty. Reviewed, dictated and finalized at location A. [facility]
[2023-08-08 00:10] VITALS: BP 118/53; PULSE 92; RESP 20; TEMP 36.2; O2SAT 97
[2023-08-08] MEDS: KETOROLAC 15 MG/ML VIAL (*BKC) IV PUSH (00:22)
[2023-08-08] MEDS: ceFAZolin 1 GM/NS 50 ML 1 GM/50 ML BAG IVPB ×2 (00:24→09:21)
[2023-08-08] MEDS: ACETAMINOPHEN 325 MG TABLET 650 MG PO ×6 (00:24→20:15)
[2023-08-08] MEDS: oxyCODONE HCL (*CRX) 5 MG TAB IR PO ×6 (02:03→20:17)
[2023-08-08 04:56] VITALS: BP 106/58; PULSE 55; RESP 20; TEMP 36.1; O2SAT 97
[2023-08-08] MEDS: LEVOTHYROXINE SODIUM 75 MCG TABLET BY MOUTH (05:03)
[2023-08-08 05:53] LABS: Basophils Percent Auto 0.2 % (0.2-1.2); Hematocrit 34.7 % (37.0-47.0); Hemoglobin 11.1 g/dL (12.0-15.0); Immature Granulocyte Absolute 0.11 K/mm3 (0.00-0.031); Immature Granulocyte Percent A 0.6 % (0-0.5); Lymphocytes Absolute Auto 1.04 K/mm3 (0.9-3.2); Mean Corpuscular Hemoglobin 30.2 pg (26-34); Mean Corpuscular Volume 94.3 fl (80-100); Mean Platelet Volume 11.8 fl (7.4-10.4); Monocytes Percent Auto 11.5 % (2.6-8.5); Neutrophils Absolute Auto 14.2 K/mm3 (1.3-6.7); Neutrophils Percent Auto 81.7 % (45.5-73.1); Platelet Count Result 202 k/mm3 (150-375); Red Blood Count 3.68 M/mm3 (4.2-5.4); Red Cell Distribution Width 13.1 % (11.5-14.5); White Blood Count 17.4 K/mm3 (4.5-10.0)
[2023-08-08 06:14] LABS: Anion Gap 7 mmol/L (8-16); Blood Urea Nitrogen 16 mg/dL (7-17); Calcium 8.5 mg/dL (8.4-10.2); Carbon Dioxide 20 mmol/L (22-30); Chloride 114 mmol/L (98-107); Estimated CRCL calculation 68 ml/min; Estimated Glomerular Filt Rate > 60; Glucose 138 mg/dL (65-110); Potassium 3.5 mmol/L (3.4-5.0); Sodium 141 mmol/L (137-145)
[2023-08-08] MEDS: VANCOMYCIN 1,000 MG/NS 250 ML 1,000 MG/250 ML BAG 250 MG IVPB (07:54)
[2023-08-08] MEDS: busPIRone HCL 5 MG TABLET BY MOUTH ×2 (08:03→18:16)
[2023-08-08] MEDS: SERTRALINE HCL 50 MG TABLET PO (08:03)
[2023-08-08] MEDS: TOPIRAMATE 25 MG TABLET 50 MG PO ×2 (08:03→18:16)
[2023-08-08] MEDS: FAMOTIDINE 20 MG TABLET PO ×2 (08:03→20:16)
[2023-08-08] MEDS: SENNA/DOCUSATE SODIUM TABLET 2 TAB PO ×2 (08:03→18:16)
[2023-08-08] MEDS: MEMANTINE 5 MG TABLET PO ×2 (08:03→18:16)
[2023-08-08] MEDS: VENLAFAXINE HCL 25 MG TABLET PO ×2 (08:03→18:16)
[2023-08-08] MEDS: APIXABAN 2.5 MG TABLET PO ×2 (08:03→20:17)
[2023-08-08] MEDS: VENLAFAXINE HCL 75 MG TABLET PO ×2 (08:03→18:16)
[2023-08-08] MEDS: CEFDINIR 300 MG CAPSULE PO ×2 (08:04→20:15)
[2023-08-08] MEDS: polyethylene glycoL 3350 17 GM POWD.PACK PO (08:05)
[2023-08-08 10:00] VITALS: BP 131/66; PULSE 87; RESP 18; TEMP 36.4; O2SAT 97
--- NOTE | 2023-08-08 11:18 | PM.IMPN ---
Progress Note: A&P Assessment and Plan (1) Bilateral primary osteoarthritis of knee: Code(s): M17.0 - Bilateral primary osteoarthritis of knee Status: Acute Assessment and Plan: 08/07/23: Total R knee arthroplasty and cortisone injection of L knee done on 08/07/23 by MD Jae. No immediate post-op complications, stable. Ambulate with assistance and up to chair PT/OT eval and treat use IS neurovasc checks - see order for intervals SCDs urinary catheter resume diet pain management: Tyl, morphine, oxycodone and narcan PRN. holding home tramadol. zofran PRN for nausea monitor labs in AM - CBC and BMP bowel regimen: docusate/senna, polyethylene glycol Dispo: care coordination consult in place, plan for acute rehab. patient reports preference for [place] [facility] if possible. 08/08/23: Patient is post op day 1 from left total knee arthroplasty PT and OT worked with patient today and she was able to ambulate greater than 120 feet and do some stairs without any issues. She will likely not qualify for inpatient rehab needs. Care coordination working on outpatient rehab needs Continue pain control efforts (2) Major depressive disorder, recurrent, moderate: Code(s): F33.1 - Major depressive disorder, recurrent, moderate Status: Acute Assessment and Plan: 08/07/23: Continue home BuSpar, Zoloft, mirtazapine, and Effexor. patient identified hx of TBI and acting as SO caregiver as factors in depression. 08/08/23: Continue with current treatment plan (3) Migraine: Code(s): G43.909 - Migraine, unspecified, not intractable, without status migrainosus Status: Acute Assessment and Plan: 08/07/23: continue home topiramate. hold sumatriptan PRN. no current ALANIZ. 08/08/23: Denies any headache at this time Continue with current treatment plan (4) Hypothyroid: Code(s): E03.9 - Hypothyroidism, unspecified Status: Acute Assessment and Plan: 08/07/23: Continue home levothyroxine. Last TSH was 0.61 on 12/19/22. will update with AM labs. 08/08/23: No change to current treatment plan (5) Pure hypercholesterolemia, unspecified: Code(s): E78.00 - Pure hypercholesterolemia, unspecified Status: Acute Assessment and Plan: 08/07/23: hold home statin. 08/08/23: restarted statin (6) Dementia: Code(s): F03.90 - Unspecified dementia, unspecified severity, without behavioral disturbance, psychotic disturbance, mood disturbance, and anxiety Status: Acute Assessment and Plan: 08/07/23: continue Namenda. currently A/Ox4. 08/08/23: restart donepezil no change to current treatment plan (7) Overactive bladder: Code(s): N32.81 - Overactive bladder Status: Acute Assessment and Plan: 08/07/23: holding mirabegron. urinary catheter in place. 08/08/23: Restarted mirabegron Time Spent With Patient Time with patient: Greater than 35 minutes Subjective Date/time seen: 08/08/23 11:18 Interval history: This is a 67 year old female who presented to the hospital for elective right total knee arthroplasty with Orthopedic services. Patient was taken to the OR on 08/07/23. PT and OT were ordered. Labs today reveal WBC 17.4, Hgb 11.1, Hct 34.7, Plt 202, Bicarb 20, BG ranging 83-138. VSS, she is afebrile, currently on room air. She reports that her pain in her right knee which is 6/10. She denies and fever, chills, shortness of breath, chest pain, nausea, vomiting, diarrhea, abdominal pain. Patient worked with PT and OT today and did well. I talked with case management and they are recommending outpatient rehab. She will not qualify for SNF or [facility] as she has been ambulating greater than 120 feet. Most likely will discharge tomorrow with ortho services. Review of Systems Review of Systems: All systems reviewed & are unremarkable except as noted in HPI and below Constitutional:
--- NOTE | 2023-08-08 12:13 | P.PNAN_ITS ---
Anes - Prog Note Post-Op Date/Time: 08/08/23 12:13 Cardiovascular status: normal Respiratory status: normal Airway patency: baseline Mental status: baseline Post-Op hydration status: normal Vital Signs: Last Vital Signs Temp 36.4 C L 08/08/23 10:00 Pulse 87 08/08/23 10:00 Resp 18 08/08/23 10:00 BP 131/66 08/08/23 10:00 Pulse Ox 97 08/08/23 10:00 O2 Del Method Room Air 08/08/23 08:15 O2 Flow Rate 2 08/07/23 11:33 Pain Score (VAS): 09/19 I/O: Intake & Output 08/07/23 08/08/23 08/08/23 23:59 07:59 15:59 Intake Total 540 540 120 Output Total 1200 600 Balance -660 540 -480 Laboratory Tests 08/08/23 04:51 08/08/23 04:51 08/08/23 04:51 WBC 17.4 H RBC 3.68 L Hgb 11.1 L D Hct 34.7 L MCV 94.3 MCH 30.2 MCHC 32.0 RDW 13.1 Plt Count 202 MPV 11.8 H Immature Gran % (Auto) 0.6 H Neut % (Auto) 81.7 H Lymph % (Auto) 6.0 L [place] % (Auto) 11.5 H Eos % (Auto) 0.0 Baso % (Auto) 0.2 Lymph # (Auto) 1.04 [place] # (Auto) 2.0 H Eos # (Auto) 0.0 Baso # (Auto) 0.0 Abs Immat Gran (auto) 0.11 H Absolute Neuts (auto) 14.2 H Absolute Nucleated RBC 0.0 Nucleated RBC % 0.0 Sodium 141 Potassium 3.5 Chloride 114 H Carbon Dioxide 20 L Anion Gap 7 L BUN 16 Creatinine 0.70 Estim Creat Clear Calc 68 Estimated GFR > 60 Glucose 138 H Calcium 8.5 Post-procedural complaints: none Patient Feedback: Patient satisfied with anesthetic care.
--- NOTE | 2023-08-08 13:18 | PM.PNORT ---
Progress Note: A&P Assessment and Plan (1) Right knee DJD: Code(s): M17.11 - Unilateral primary osteoarthritis, right knee Status: Acute Assessment and Plan: Patient is postop day 1 after right total knee arthroplasty. She has severe medial compartment osteoarthritis of the left knee and recess she received a cortisone shot in the left knee yesterday as well. The left knee is doing well. Her right knee was very comfortable yesterday but today she has more pain and she rates her pain at 6/10 consistently. She has been getting the 1 tablet of oxycodone approximately every 4 hours with the 650 Tylenol every 4 hours. The Toradol was stopped last evening in preparation for her to be started on Eliquis. I have decided to not combine Celebrex with the Eliquis because of her cerebral shunt and increase risk of bleeding complications which could be catastrophic if it was intracerebral bleeding. When she is off the 12 day course of Eliquis we can start her on Celebrex and aspirin per our routine. She rates her pain at this time at 6/10 and I am going to give her a 2nd Percocet and see how well she tolerates taking 2 at a time. Her block will of worn off and usually this is the day that the pain is the worst for the above reasons. She is very fearful and anxious about prospect of going home. She does have dementia and takes Namenda and has difficulty with processing and she is terribly afraid that her will expect her to take care of him and this makes her fearful. She does have a live information security consultant that takes care of the both of them to some degree but she spends much of her time caring for her with more severe dementia and for this reason, to avoid the conflict that she is afraid that will arise, she would prefer to go to rehab for a few weeks until she is more recovered. By nursing report I have been told that patient care coordinator did not feel she would qualify for [facility] because she did so well in therapy this morning. Her wound is dry there is no bleeding on the dressing. Her hemoglobin is 11.1. Platelets [id number]. Her white count is elevated at 17. She has been after afebrile however. She has no erythema around her knee and I suspect that her elevated white count is reactive to the acute blood loss and stress of surgery. We will check another CBC tomorrow. I discussed with her that we will try to see if we can get authorization for her to go to [facility] for a period of time but if the insurance company will not authorize that she may be forced to have true be discharged to home with her that has dementia and caregiver. We will see how she feels tomorrow. (2) Dementia: Code(s): F03.90 - Unspecified dementia, unspecified severity, without behavioral disturbance, psychotic disturbance, mood disturbance, and anxiety Status: Acute Subjective Subjective Date/Time Seen: 08/08/23 13:18 Objective Data Vital Signs Vital Signs: Vital Signs - 24 hr 08/07/23 13:43 08/07/23 14:20 08/07/23 14:22 Temperature Pulse Rate Respiratory Rate Blood Pressure Pulse Oximetry 99 Oxygen Delivery Room Air Room Air Room Air 08/07/23 14:00 08/07/23 17:37 08/07/23 18:00 Temperature 36.2 C L 36.3 C L Pulse Rate 87 89 Respiratory Rate 16 16 Blood Pressure 140/73 130/66 Pulse Oximetry 98 95 99 Oxygen Delivery Room Air 08/07/23 20:11 08/07/23 20:00 08/08/23 00:10 Temperature 35.9 C L 36.2 C L Pulse Rate 86 86 92 Respiratory Rate 18 18 20 Blood Pressure 124/61 118/53 L Pulse Oximetry 96 96 97 Oxygen Delivery Room Air 08/07/23 23:00 08/08/23 04:56 08/08/23 08:15 Temperature 36.1 C L Pulse Rate 86 55 L Respiratory Rate 18 20 Blood Pressure 106/58 L Pulse Oximetry 96 97 Oxygen Delivery Autopap Room Air 08/08/23 10:00 Temperature 36.4 C L Pulse Rate 87 Respiratory Rate 18 Blood Pressure 131/66 Pulse Oximetry 97 Oxygen Delivery Int
[2023-08-08 13:31] VITALS: BP 118/61; PULSE 83; RESP 16; TEMP 37.1; O2SAT 97
[2023-08-08] MEDS: MIRABEGRON 25 MG ER TABLET PO (18:16)
[2023-08-08] MEDS: DONEPEZIL HCL 5 MG TABLET 10 MG PO (20:15)
[2023-08-08] MEDS: MIRTAZAPINE 30 MG TABLET PO (20:17)
[2023-08-08 21:45] VITALS: PULSE 74; RESP 27; O2SAT 98
[2023-08-09] MEDS: ACETAMINOPHEN 325 MG TABLET 650 MG PO ×4 (00:17→12:56)
[2023-08-09] MEDS: oxyCODONE HCL (*CRX) 5 MG TAB IR PO ×5 (00:17→15:31)
[2023-08-09 02:30] VITALS: PULSE 77; RESP 18; O2SAT 96
[2023-08-09] MEDS: LEVOTHYROXINE SODIUM 75 MCG TABLET BY MOUTH (05:21)
[2023-08-09 06:08] LABS: Hematocrit 36.4 % (37.0-47.0); Hemoglobin 11.5 g/dL (12.0-15.0); Mean Corpuscular HGB Conc 31.6 g/dl (32-36); Mean Corpuscular Hemoglobin 29.9 pg (26-34); Mean Corpuscular Volume 94.5 fl (80-100); Mean Platelet Volume 11.3 fl (7.4-10.4); Platelet Count Result 172 k/mm3 (150-375); Red Blood Count 3.85 M/mm3 (4.2-5.4); Red Cell Distribution Width 13.2 % (11.5-14.5); White Blood Count 12.6 K/mm3 (4.5-10.0)
[2023-08-09 09:18] VITALS: BP 147/64; PULSE 86; RESP 16; TEMP 36.3; O2SAT 100
[2023-08-09] MEDS: SERTRALINE HCL 50 MG TABLET PO (09:20)
[2023-08-09] MEDS: VENLAFAXINE HCL 25 MG TABLET PO (09:20)
[2023-08-09] MEDS: FAMOTIDINE 20 MG TABLET PO (09:20)
[2023-08-09] MEDS: APIXABAN 2.5 MG TABLET PO (09:20)
[2023-08-09] MEDS: MEMANTINE 5 MG TABLET PO (09:20)
[2023-08-09] MEDS: busPIRone HCL 5 MG TABLET BY MOUTH (09:20)
[2023-08-09] MEDS: CEFDINIR 300 MG CAPSULE PO (09:20)
[2023-08-09] MEDS: MIRABEGRON 25 MG ER TABLET PO (09:20)
[2023-08-09] MEDS: ATORVASTATIN 10 MG TABLET PO (09:20)
[2023-08-09] MEDS: SENNA/DOCUSATE SODIUM TABLET 2 TAB PO (09:20)
[2023-08-09] MEDS: TOPIRAMATE 25 MG TABLET 50 MG PO (09:20)
[2023-08-09] MEDS: polyethylene glycoL 3350 17 GM POWD.PACK PO (09:20)
[2023-08-09 09:21] LABS: Alanine Aminotransferase 38 U/L (6-35); Albumin Level 3.8 g/dL (3.5-5.1); Alkaline Phosphatase 116 U/L (38-126); Anion Gap 9 mmol/L (8-16); Aspartate Amino Transferase 38 U/L (14-36); Bilirubin,Total 0.8 mg/dL (0.2-1.3); Blood Urea Nitrogen 13 mg/dL (7-17); Calcium 8.5 mg/dL (8.4-10.2); Carbon Dioxide 22 mmol/L (22-30); Chloride 112 mmol/L (98-107); Estimated CRCL calculation 79 ml/min; Estimated Glomerular Filt Rate > 60; Glucose 108 mg/dL (65-110); Magnesium 2.3 mg/dL (1.6-2.3); Potassium 3.3 mmol/L (3.4-5.0); Sodium 143 mmol/L (137-145)
[2023-08-09] MEDS: VENLAFAXINE HCL 75 MG TABLET PO (09:25)
[2023-08-09 12:00] VITALS: BP 124/62; PULSE 82; RESP 16; TEMP 36.3; O2SAT 94
--- NOTE | 2023-08-09 12:03 | P.PNIM_ITS ---
Progress Note: A&P Assessment and Plan (1) Bilateral primary osteoarthritis of knee: Code(s): M17.0 - Bilateral primary osteoarthritis of knee Status: Acute Assessment and Plan: 08/07/23: Total R knee arthroplasty and cortisone injection of L knee done on 08/07/23 by MD Jae. No immediate post-op complications, stable. Ambulate with assistance and up to chair PT/OT eval and treat use IS neurovasc checks - see order for intervals SCDs urinary catheter resume diet pain management: Tyl, morphine, oxycodone and narcan PRN. holding home tramadol. zofran PRN for nausea monitor labs in AM - CBC and BMP bowel regimen: docusate/senna, polyethylene glycol Dispo: care coordination consult in place, plan for acute rehab. patient reports preference for [place] if possible. 08/08/23: * Patient is post op day 1 from left total knee arthroplasty * PT and OT worked with patient today and she was able to ambulate greater than 120 feet and do some stairs without any issues. She will likely not qualify for inpatient rehab needs. * Care coordination working on outpatient rehab needs * Continue pain control efforts 08/09/23: * Patient is post op day 2 from left total knee arthroplasty * PT and OT following * Care coordination still working on outpatient rehab needs * Continue pain medications. (2) Major depressive disorder, recurrent, moderate: Code(s): F33.1 - Major depressive disorder, recurrent, moderate Status: Acute Assessment and Plan: 08/07/23: Continue home BuSpar, Zoloft, mirtazapine, and Effexor. patient identified hx of TBI and acting as SO caregiver as factors in depression. 08/08/23: * Continue with current treatment plan (3) Migraine: Code(s): G43.909 - Migraine, unspecified, not intractable, without status migrainosus Status: Acute Assessment and Plan: 08/07/23: continue home topiramate. hold sumatriptan PRN. no current ALANIZ. 08/08/23: * Denies any headache at this time * Continue with current treatment plan 08/09/23: * Continue with current treatment plan (4) Hypothyroid: Code(s): E03.9 - Hypothyroidism, unspecified Status: Acute Assessment and Plan: 08/07/23: Continue home levothyroxine. Last TSH was 0.61 on 12/19/22. will update with AM labs. 08/08/23: * No change to current treatment plan (5) Pure hypercholesterolemia, unspecified: Code(s): E78.00 - Pure hypercholesterolemia, unspecified Status: Acute Assessment and Plan: 08/07/23: hold home statin. 08/08/23: * restarted statin 08/09/23: * Continue with current treatment plan (6) Dementia: Code(s): F03.90 - Unspecified dementia, unspecified severity, without behavioral disturbance, psychotic disturbance, mood disturbance, and anxiety Status: Acute Assessment and Plan: 08/07/23: continue Namenda. currently A/Ox4. 08/08/23: * restart donepezil * no change to current treatment plan 08/09/23: * Continue with current treatment plan (7) Overactive bladder: Code(s): N32.81 - Overactive bladder Status: Acute Assessment and Plan: 08/07/23: holding mirabegron. urinary catheter in place. 08/08/23: * Restarted mirabegron 08/09/23: * Continue with current treatment plan Time Spent With Patient Time with patient: 15 - 25 minutes Subjective Date/time see
--- NOTE | 2023-08-09 12:03 | PM.IMPN ---
Progress Note: A&P Assessment and Plan (1) Bilateral primary osteoarthritis of knee: Code(s): M17.0 - Bilateral primary osteoarthritis of knee Status: Acute Assessment and Plan: 08/07/23: Total R knee arthroplasty and cortisone injection of L knee done on 08/07/23 by MD Jae. No immediate post-op complications, stable. Ambulate with assistance and up to chair PT/OT eval and treat use IS neurovasc checks - see order for intervals SCDs urinary catheter resume diet pain management: Tyl, morphine, oxycodone and narcan PRN. holding home tramadol. zofran PRN for nausea monitor labs in AM - CBC and BMP bowel regimen: docusate/senna, polyethylene glycol Dispo: care coordination consult in place, plan for acute rehab. patient reports preference for [facility] if possible. 08/08/23: Patient is post op day 1 from left total knee arthroplasty PT and OT worked with patient today and she was able to ambulate greater than 120 feet and do some stairs without any issues. She will likely not qualify for inpatient rehab needs. Care coordination working on outpatient rehab needs Continue pain control efforts 08/09/23: Patient is post op day 2 from left total knee arthroplasty PT and OT following Care coordination still working on outpatient rehab needs Continue pain medications. (2) Major depressive disorder, recurrent, moderate: Code(s): F33.1 - Major depressive disorder, recurrent, moderate Status: Acute Assessment and Plan: 08/07/23: Continue home BuSpar, Zoloft, mirtazapine, and Effexor. patient identified hx of TBI and acting as SO caregiver as factors in depression. 08/08/23: Continue with current treatment plan (3) Migraine: Code(s): G43.909 - Migraine, unspecified, not intractable, without status migrainosus Status: Acute Assessment and Plan: 08/07/23: continue home topiramate. hold sumatriptan PRN. no current ALANIZ. 08/08/23: Denies any headache at this time Continue with current treatment plan 08/09/23: Continue with current treatment plan (4) Hypothyroid: Code(s): E03.9 - Hypothyroidism, unspecified Status: Acute Assessment and Plan: 08/07/23: Continue home levothyroxine. Last TSH was 0.61 on 12/19/22. will update with AM labs. 08/08/23: No change to current treatment plan (5) Pure hypercholesterolemia, unspecified: Code(s): E78.00 - Pure hypercholesterolemia, unspecified Status: Acute Assessment and Plan: 08/07/23: hold home statin. 08/08/23: restarted statin 08/09/23: Continue with current treatment plan (6) Dementia: Code(s): F03.90 - Unspecified dementia, unspecified severity, without behavioral disturbance, psychotic disturbance, mood disturbance, and anxiety Status: Acute Assessment and Plan: 08/07/23: continue Namenda. currently A/Ox4. 08/08/23: restart donepezil no change to current treatment plan 08/09/23: Continue with current treatment plan (7) Overactive bladder: Code(s): N32.81 - Overactive bladder Status: Acute Assessment and Plan: 08/07/23: holding mirabegron. urinary catheter in place. 08/08/23: Restarted mirabegron 08/09/23: Continue with current treatment plan Time Spent With Patient Time with patient: 15 - 25 minutes Subjective Date/time seen: 08/09/23 12:03 Interval history: 08/08/23: This is a 67 year old female who presented to the hospital for elective right total knee arthroplasty with Orthopedic services. Patient was taken to the OR on 08/07/23. PT and OT were ordered. Labs today reveal WBC 17.4, Hgb 11.1, Hct 34.7, Plt 202, Bicarb 20, BG ranging 83-138. VSS, she is afebrile, currently on room air. She reports that her pain in her right knee which is 6/10. She denies and fever, chills, shortness of breath, chest pain, nausea, vomiting, diarrhea, abdominal pain. Patient
--- NOTE | 2023-08-09 13:16 | PM.DS ---
DS: Admitting Diagnosis Discharge Date 08/09/2023 Admitting Diagnosis Osteoarthritis both knees DS: Discharge Diagnosis Discharge Diagnosis Plan Patient underwent right total knee arthroplasty and cortisone injection left knee on 08/07/2023. DS: Summary Hospital Course Reason for hospitalization: Patient was admitted for observation following knee replacement surgery right knee and cortisone injection left knee on 08/07/2023. She has had uneventful postoperative course. She has actually done very well. She has a history of dementia that is mild related to brain trauma many years ago subsequent hydrocephalus and placement of shunt. Her has more significant dementia and she normally cares for him and she has had significant anxiety about going home. They have a home care provider stain at the home currently to help her but she has been fearful about going home because she is afraid her will expect her to continue to help him and will not understand that she is unable because of her recent knee replacement surgery. She was evaluated by primary care md yesterday and it was felt she was doing too well to qualify for a assisted facility transfer after her hospitalization. Her white count was elevated yesterday today it is 12.6. Hemoglobin 11.5 stable platelets 172 1000 stable. Chem panel today looked fine. Minimal elevation of AST ALT both are 38. Patient has accepted that she is not going to be able to go to the rehab facility and has adapted to the new situation of her going home. Her pain has been controlled today with 1 of the Percocets 5 mg every 4 hours and the scheduled Tylenol. Yesterday we did try 2 Percocets in the late afternoon and she did not have any side effects her over sedation with 2 Percocet but her pain is been satisfactorily controlled with 1 Percocet today. I reviewed the instructions with her again the importance of keeping the leg elevated avoiding sitting in the chair she was given a printed list of instructions I have encouraged her to review this several times. She will be discharged on Ceftin her for antibiotic prophylaxis, Eliquis for DVT prophylaxis Tylenol Glenda Colace and MiraLax for constipation prophylaxis and will resume her other home medications. Once she is off the Eliquis we will start Celebrex and baby aspirin twice daily. She is very cheerful today and doing well and has been up and moving around quite easily. There is no blood on the dressing no significant swelling today in her left knee or calf. She feels ready for discharge. Hospital Course: See above. Status at Discharge Cognitive/behavioral status at discharge: Stable Time Spent with Patient Time attestation: Total time spent providing and/or coordinating discharge services: DS: Data Data Completed and Pending Labs on day of discharge: Labs from last 24 hours 08/09/23 08/09/23 05:38 05:31 WBC 12.6 H RBC 3.85 L Hgb 11.5 L Hct 36.4 L MCV 94.5 MCH 29.9 MCHC 31.6 L RDW 13.2 Plt Count 172 MPV 11.3 H Sodium 143 Potassium 3.3 L Chloride 112 H Carbon Dioxide 22 Anion Gap 9 BUN 13 Creatinine 0.60 L Estim Creat Clear Calc 79 Estimated GFR > 60 Glucose 108 Calcium 8.5 Magnesium 2.3 Total Bilirubin 0.8 AST 38 H ALT 38 H Alkaline Phosphatase 116 Total Protein 7.0 Albumin 3.8 Discharge Plan Discharge Attending physician on discharge: Edward Rowe Consulting providers: Chris Dukes Discharging Clinician: Edward Rowe Patient Disposition: Home, Self-Care Activity: may shower Diet: as tolerated Wound Care Instructions: follow printed instructions Discharge Instructions: EDWARD ROWE M.D [facility], [address] [address] POST-OPERATIVE DISCHARGE INSTRUCTIONS TOTAL KNEE ARTHROPLASTY 1. When resting, do not rest in the chair.Whe
== END 2023-08-09 16:20 | disposition home health service (06) ==
LOC: ANHSURGERY 10:06 → ANH2MED 10:06
PROVIDERS: Nurse Practitioner Acute Care; Physician Assistant Surgical; Admitting Provider Orthopaedic Surgery; PCP Family Medicine Adolescent Medicine; Visit Provider Orthopaedic Surgery
PROC: (CPT 27447; principal; 2023-08-07 07:30)
DX: M17.0 Bilateral primary osteoarthritis of knee (principal); F03.90 Unspecified dementia, unspecified severity, without behavioral disturbance, psychotic disturbance, mood disturbance, and anxiety; E03.9 Hypothyroidism, unspecified; G47.33 Obstructive sleep apnea (adult) (pediatric); F33.1 Major depressive disorder, recurrent, moderate; G43.909 Migraine, unspecified, not intractable, without status migrainosus; E78.00 Pure hypercholesterolemia, unspecified; N32.81 Overactive bladder; Z87.820 Personal history of traumatic brain injury; Z87.891 Personal history of nicotine dependence; Z79.1 Long term (current) use of non-steroidal anti-inflammatories (NSAID); Z79.891 Long term (current) use of opiate analgesic; Z79.899 Other long term (current) drug therapy
CPT/HCPCS: 27447; 20610; 36415; 73560; 80048; 80053; 80307; 82040; 83036; 83735; 85025; 85027; 86850; 86880; 86900; 86901; 86902; 86922; 87081; 93005; 97110; 97116; 97161; 97165; 97530; 97535; A9270; C1713; C1776; G0378; J0171; J0690; J1040; J1100; J1170; J1200; J1885; J2250; J2270; J2371; J2405; J2704; J2795; J3010; J3370; J7030; J7120

== ENCOUNTER 2023-08-18 09:18 | Outpatient (CLI) | payer OTHER, SELFPAY ==
--- NOTE | ~2023-08-18 | US_ITS ---
EXAMINATION: US venous doppler LE RT DATE: 08/18/2023 09:56 INDICATION: Right lower limb edema. TECHNIQUE: Grayscale ultrasound images without and with compression and Doppler ultrasound images of the right lower extremity veins were obtained. COMPARISON: Ultrasound 04/18/2016 FINDINGS: The visualized portions of right common femoral vein, profunda (deep) femoral vein, femoral vein, pop liteal vein, peroneal veins, posterior tibial veins, and greater saphenous vein outflow are patent. IMPRESSION: 1. No deep venous thrombosis. Reviewed, dictated and finalized at location A. [employer]
== END 2023-08-18 09:19 | disposition home or self-care (01) ==
PROVIDERS: PCP Family Medicine Adolescent Medicine; Visit Provider Orthopaedic Surgery
DX: R60.0 Localized edema (principal)
CPT/HCPCS: 93971

== ENCOUNTER 2023-10-08 11:00 | Outpatient (RCR) | payer OTHER, SELFPAY ==
--- NOTE | 2023-09-01 08:00 | PCPTNOTE ---
Patient called & cancelled scheduled appointment this date due to inclement weather. She has been rescheduled.
--- NOTE | 2023-09-08 15:11 | OPREHPOC ---
Outpatient Therapy Plan of Care This is a Multidisciplinary Plan of Care that may contain components documented by all disciplines (PT, OT, and ST.) PT Problem 1 PT Problem #1 Knowledge Deficit PT Goal 1 Goal Pt to be IND with issued HEP Target Visit 8 PT Problem 2 PT Problem #2 Pain PT Goal 1 Goal Pt to report knee pain no greater than 3/10 in the last week. Target Visit 8 PT Goal 2 Goal Pt to report 75% improvement in overall symptoms Target Visit 8 PT Problem 3 PT Problem #3 Impaired Gait PT Goal 1 Goal Pt to improve 2 min walk distance from 275ft to 350ft. Target Visit 8 PT Goal 2 Goal Pt to be able to ambulate 100ft safety without cane. Target Visit 8 PT Problem 4 PT Problem #4 Impaired Functional Mobil PT Goal 1 Goal Pt to be able demonstrate floor to stand transfers without external assist Target Visit 8 PT Goal 2 Goal Pt to ambulate 8 stairs with a reciprocal pattern with single UE support. Target Visit 8
--- NOTE | 2023-09-08 15:12 | PTOPEVAL1 ---
Assessment and note entered by Dell Costello, PT, DPT Evaluation Information Assessment Status Evaluation Diagnosis R TKA Onset 08/07/23 Subjective Information Pt states she had a R TKA on 08/07/23. So far pt states she has been doing her exercises faithfully . She states she has a split foyer home, she does not usually have issues with the stairs. Pt states she is managing her pain, she has been able to take Tylenol to help with this. She states she wants to work on walking more. She states her L knee will be replaced in February. Pt reports a PMH is a TBI from over 40 years ago, her has dementia, together they have a caregiver that helps with daily chores. Reported Pain Level Pain Score 4: Self Report Assessment PT Clinical Summary Richelle presents to therapy today for her initial evaluation following a R TKA on 08/07/30. Pt has a history of TBI. Today she demonstrates good active knee flexion and extension ROM from -2 deg to 114 deg. She currently ambulates with a cane, decreased gait speed, and has impaired navigation on the stairs. D/t pt PMH her balance and functional mobility is decreased secondary to decreased LE strength and prior balance deficits. Skilled therapy services are indicated to address the deficits noted above, to improve gross strength, to improve functional mobility, and to return to PLOF. Plan of Care Interventions Electrical Stimulation,Gait Training,Hot Pack/Cold Pack,Manual Therapy,Neuro Re-education,Patient/ Caregiver Educati,Therapeutic Activities, Therapeutic Exercise PT Services Indicated Yes Treatment Frequency and 2x/wk for 8 visits Duration These treatments will address the objective and functional deficits as defined above. The patient will be advanced safely and appropriately in order for the patient to progress towards his/her prior level of function. Additional exercises will be introduced and as well as a comprehensive home exercise program upon discharge, if needed, ?to ensure carryover of functional gains achieved in the clinic. This treatment plan has been reviewed and agreement upon by the patient.
--- NOTE | 2023-10-08 11:50 | PTOPDC ---
Assessment and note entered by Dell Costello, PT, DPT Evaluation Information Assessment Status Discharge Diagnosis R TKA Onset 08/07/23 Subjective Information Pt states her R knee is doing well and that her L knee is starting to bother her more. She declines any functional limitations d/t her R knee. Pt reports 70% improvement in her R knee. She feels like her strength is still lacking. Reported Pain Level Pain Score 6,1: Self Report Assessment PT Clinical Summary Richelle presents to therapy today for her progress report following 11 visits of skilled therapy to treat the deficits related to her R TKA on . Pt also has a history of TBI. Today she demonstrates good active knee flexion ROM from 0- 115 deg, demonstrates good quad strength, and improved gait pattern. D/t her history of TBI pt continues to ambulate with a cane, a widened LIU, and a weaving gait pattern. Pt has met or progressed well towards her therapy goals and no longer requires skilled services. She will be discharged at this time. Plan of Care PT Services Indicated No
== END 2023-10-08 13:16 | disposition home or self-care (01) ==
LOC: ANHGOSHPT 11:00
PROVIDERS: PCP Family Medicine Adolescent Medicine; Visit Provider Orthopaedic Surgery
DX: Z47.1 Aftercare following joint replacement surgery (principal); M17.11 Unilateral primary osteoarthritis, right knee; Z96.651 Presence of right artificial knee joint
CPT/HCPCS: 97110; 97112; 97116; 97161; 97530; 97750

== ENCOUNTER 2023-10-28 13:16 | Outpatient (CLI) | payer OTHER, SELFPAY ==
--- NOTE | ~2023-10-28 | MM_ITS ---
EXAMINATION: MM screening [facility] BI w sharif HISTORY: Screening TECHNIQUE: Craniocaudal and mediolateral oblique 3-D tomosynthesis images were obtained and synthetic 2-D images were generated. CAD analysis was submitted and interpreted. COMPARISON: Comparison to multiple prior studies sequentially, with oldest reviewed study dated 11/2014. BREAST PARENCHYMAL COMPOSITION: There are scattered areas of fibroglandular density. FINDINGS: There is no evidence of suspicious mass, calcification, or architectural distortion to sugg est malignancy in either breast. There has been no suspicious interval change. IMPRESSION: 1. No mammographic evidence of malignancy. 2. Recommend routine screening mammography in one year. BI-RADS Category 1: Negative Reviewed, dictated and finalized at location A.
== END 2023-10-28 13:17 ==
PROVIDERS: PCP Nurse Practitioner Psychiatric/Mental Health; Visit Provider Obstetrics & Gynecology
DX: Z12.31 Encounter for screening mammogram for malignant neoplasm of breast (principal)
CPT/HCPCS: 77063; 77067

== ENCOUNTER 2024-01-29 09:42 | Outpatient (CLI) | payer OTHER, SELFPAY ==
[2024-01-29 11:23] LABS: Basophils Absolute Auto 0.1 K/mm3 (0.0-0.1); Basophils Percent Auto 0.9 % (0.2-1.2); Eosinophils Absolute Auto 0.2 K/mm3 (0-0.3); Eosinophils Percent Auto 2.5 % (0-4.4); Hematocrit 41.8 % (37.0-47.0); Hemoglobin 13.8 g/dL (12.0-15.0); Immature Granulocyte Absolute 0.05 K/mm3 (0.00-0.031); Immature Granulocyte Percent A 0.7 % (0-0.5); Lymphocytes Absolute Auto 1.77 K/mm3 (0.9-3.2); Lymphocytes Percent Auto 23.1 % (18.3-44.2); Mean Corpuscular Hemoglobin 30.5 pg (26-34); Mean Corpuscular Volume 92.5 fl (80-100); Monocytes Absolute Auto 0.8 K/mm3 (0.1-0.6); Monocytes Percent Auto 10.6 % (2.6-8.5); Neutrophils Absolute Auto 4.8 K/mm3 (1.3-6.7); Neutrophils Percent Auto 62.2 % (45.5-73.1); Platelet Count Result 179 k/mm3 (150-375); Red Blood Count 4.52 M/mm3 (4.2-5.4); Red Cell Distribution Width 12.9 % (11.5-14.5); White Blood Count 7.7 K/mm3 (4.5-10.0)
[2024-01-29 11:33] LABS: Urine Cotinine NEGATIVE
[2024-01-29 11:37] LABS: Albumin Level 4.8 g/dL (3.5-5.1); Anion Gap 7 mmol/L (4-12); Blood Urea Nitrogen 15 mg/dL (7-17); Calcium 9.1 mg/dL (8.4-10.2); Carbon Dioxide 26 mmol/L (22-30); Chloride 110 mmol/L (98-107); Estimated Glomerular Filt Rate > 60; Glucose 73 mg/dL (65-110); Potassium 3.8 mmol/L (3.4-5.0); Sodium 143 mmol/L (137-145)
[2024-01-29 11:48] LABS: Hemoglobin A1C 4.8 % (<5.7)
== END 2024-01-29 09:43 | disposition home or self-care (01) ==
LOC: ANHSURGERY 09:49
PROVIDERS: PCP Family Medicine Adolescent Medicine; Visit Provider Orthopaedic Surgery
DX: M17.12 Unilateral primary osteoarthritis, left knee (principal); Z01.818 Encounter for other preprocedural examination
CPT/HCPCS: 80048; 80307; 82040; 83036; 85025; 87081

== ENCOUNTER 2024-02-15 12:48 | Outpatient (CLI) | payer OTHER, SELFPAY ==
--- NOTE | ~2024-02-15 | US_ITS ---
BILATERAL LOWER EXTREMITY VENOUS ULTRASOUND Ordering provider: Edward Rowe MD History: . LOCALIZED EDEMA . Comparison: None. FINDINGS: RIGHT LOWER EXTREMITY VEINS: --COMMON FEMORAL: Patent and free of thrombus. Normal compressibility, phasic flow and augmentation. --PROXIMAL SUPERFICIAL FEMORAL: Patent and free of thrombus. Normal compressibility, phasic flow and augmentation. --DISTAL SUPERFICIAL FEMORAL: Patent and free of thrombus. Normal compressibility, phasic flow and au gmentation. --POPLITEAL: Patent and free of thrombus. Normal compressibility, phasic flow and augmentation. --POSTERIOR TIBIAL: Patent and free of thrombus. Normal compressibility, phasic flow and augmentation . LEFT LOWER EXTREMITY VEINS: --COMMON FEMORAL: Patent and free of thrombus. Normal compressibility, phasic flow and augmentation. --PROXIMAL SUPERFICIAL FEMORAL: Patent and free of thrombus. Normal compressibility, phasic flow and augmentation. --DISTAL SUPERFICIAL FEMORAL: Patent and free of thrombus. Normal compressibility, phasic flow and au gmentation. --POPLITEAL: Patent and free of thrombus. Normal compressibility, phasic flow and augmentation. --POSTERIOR TIBIAL: Patent and free of thrombus. Normal compressibility, phasic flow and augmentation . IMPRESSION: Negative bilateral lower extremity venous US. No deep vein thrombosis. Reviewed, dictated and finalized at location A.
== END 2024-02-15 12:49 | disposition home or self-care (01) ==
LOC: ANHIMG 12:49
PROVIDERS: PCP Family Medicine Adolescent Medicine; Visit Provider Orthopaedic Surgery
DX: M79.89 Other specified soft tissue disorders (principal)
CPT/HCPCS: 93970

== ENCOUNTER 2024-03-15 12:33 | Observation (INO) | payer OTHER, SELFPAY ==
[2024-01-29 10:12] VITALS: BP 114/71; PULSE 72; RESP 16; TEMP 36.7; O2SAT 95; BMI 32.5
--- NOTE | 2024-01-29 10:35 | PC.NURSE ---
Report to the Outpatient Waiting Room, entrance under the green pavilion located off [facility], at time __6:00AM on date __02/18/24 . Planned Procedure Time: ___7:30AM . Time changes happen often and if your time is changed the preop area will call you the afternoon before. - You and your visitor will be asked to self-screen and do not enter if you have any COVID symptoms. - A mask is optional within the hospital at this time. Patients may have clear liquids (water, carbonated beverages, clear teas, apple juice) until 3 hours prior to surgery with a maximum of 20 ounces. - No food from midnight until time of surgery. Take the following medications with a SIP of water the morning of surgery: ___BUSPIRONE, LEVOTHYROXINE, MIRTAZAPINE, SERTRALINE, TOPIRAMATE, VENLAFAXINE. MAY TAKE TRAMADOL NEEDED FOR PAIN. DO NOT STOP ANY OF YOUR OTHER PRESCRIPTION MEDICATIONS PRIOR TO SURGERY ?EXCEPT THE FOLLOWING Medications to discontinue per physician ___HOLD MELOXICAM 7 DAYS PRE-OP PER DR. PRECIADO- LAST DOSE 02/10/24 HOLD ALL VITAMINS/SUPPLEMENTS FOR 3 DAYS PRE-OP PER ANESTHESIA- LAST DOSE 02/14/24 Please no make-up, nail frisian, hairspray, perfume, deodorant, or body powder the day of surgery. No jewelry (including any body piercings) or valuables the day of surgery, leave them at home. Please take a shower or bath the night before, or the morning of, surgery with an antibacterial soap. Wear comfortable, loose fitting clothing. - Jewelry must be removed prior to entering the operating room. Rings and piercings that are not removed may be cut off. - The hospital will not accept responsibility for valuables. - Please leave all valuables, including medications, at home the day of surgery. If you are going home after surgery, a licensed telephone directory distributor driver must drive you home. - NO public transportation without another adult if you receive anesthesia. - We recommend that an adult stay with you for 24 hours following discharge. - We also recommend that you do not drive, make important decision, drink alcoholic beverages, or take any drugs that were not prescribed by your health care provider for at least 24 hours after your discharge time. Follow any additional instructions given to you from your surgeon. If you or anyone in your household have experienced Covid symptoms in the past week, please notify your surgeon or the nurse liaison at the phone number below for possible testing. Telephone instructions given to __PATIENT & CAREGIVER and asked if any additional questions and then verbalized understanding. Patient advised to call surgeon office or pre surgery nurse liaison [phone] if any additional questions.
--- NOTE | 2024-03-10 09:04 | PC.NURSE ---
Report to the Outpatient Waiting Room, entrance under the green pavilion located off [facility], at time _0600 on date __03/14/24 . Planned Procedure Time: _0730 . Time changes happen often and if your time is changed the preop area will call you the afternoon before. - You and your visitor will be asked to self-screen and do not enter if you have any COVID symptoms. - A mask is optional within the hospital at this time. Patients may have clear liquids (water, carbonated beverages, clear teas, apple juice) until 3 hours prior to surgery(0430) with a maximum of 20 ounces. - No food from midnight until time of surgery - Infants may have breast milk until 4 hours before surgery, infant formula 6 hours prior to surgery. - Children will be allowed to drink immediately following surgery. If applicable, please bring a bottle or sippy cup to assist with drinking. Juice, water, soda, and popsicles are readily available. For infants on formula, please bring formula the day of surgery. Pacifiers are allowed. Take the following medications with a SIP of water the morning of surgery: ___BUSPIRONE,LEVOTHYROXINE,TOPIRAMATE,VENLAFAXINE.MAY TAKE TRAMADOL IN NEEDED FOR PAIN DO NOT STOP ANY OF YOUR OTHER PRESCRIPTION MEDICATIONS PRIOR TO SURGERY ?EXCEPT THE FOLLOWING Medications to discontinue per physician ___PT STATES LAST DOSE MELOXICAM 03/06/[address] PRECIADO. LAST DOSE ALL VITAMINS AND SUPPLEMENTS 03/10/24 PER ANESTHESIA Please no make-up, nail serbian, hairspray, perfume, deodorant, or body powder the day of surgery. No jewelry (including any body piercings) or valuables the day of surgery, leave them at home. Please take a shower or bath the night before, or the morning of, surgery with an antibacterial soap. Wear comfortable, loose fitting clothing. Children are encouraged to wear pajamas. - Jewelry must be removed prior to entering the operating room. Rings and piercings that are not removed may be cut off. - The hospital will not accept responsibility for valuables. - Please leave all valuables, including medications, at home the day of surgery. If you are going home after surgery, a licensed equipment driver must drive you home. - NO public transportation without another adult if you receive anesthesia. - We recommend that an adult stay with you for 24 hours following discharge. - We also recommend that you do not drive, make important decision, drink alcoholic beverages, or take any drugs that were not prescribed by your health care provider for at least 24 hours after your discharge time. For Pediatric surgeries, we recommend two adults accompany the child home. Follow any additional instructions given to you from your surgeon. If you or anyone in your household have experienced Covid symptoms in the past week, please notify your surgeon or the nurse liaison at the phone number below for possible testing. Telephone instructions given to ___PATIENT and asked if any additional questions and then verbalized understanding. Patient advised to call surgeon office or pre surgery nurse liaison [phone] if any additional questions.
--- NOTE | 2024-03-10 09:14 | PC.NURSE ---
PT STATES HAD UTI AND WAS TREATED WITH ABX-FOLLOWED UP WITH DR ANGELA HOYT. URINE NOW CLEAR. THAT WAS WHY SURGERY WAS CX ON 02/18/24. SORE ON TOP OF RT FOOT (SEEN BY DR PRECIADO) IS HEALED.NO OTHER CHANGE IN HEALTH HX PER PT
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
[2024-03-14] VITALS (14 sets, daily range): BP systolic 117–175; BP diastolic 51–102; PULSE 71–96; RESP 12–33; TEMP 36.1–37.1; O2SAT 90–100; BMI 34.7; BMI 33.6
[2024-03-14] MEDS: LACTATED RINGERS 1,000 ML 30 ML IV CONT ×2 (06:30→10:53)
[2024-03-14] MEDS: VANCOMYCIN 1,250 MG/NS 250 ML BAG 166.67 MG IVPB (07:03)
[2024-03-14] MEDS: ACETAMINOPHEN 500 MG TABLET 1000 MG PO (07:14)
[2024-03-14] MEDS: TRANEXAMIC ACID 1,000MG/ISO100 1,000 MG/100 ML BAG 200 MG IVPB (07:16)
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
--- NOTE | 2024-03-14 07:18 | WPDHPUPDATE1 ---
History and Physical Update Update Date/Time: 03/14/24 07:18 History and Physical has been reviewed, including an updated exam of the patient. There are NO changes in the patient's condition. Risks, benefits, and alternatives have been discussed and questions answered. Patient agrees to proceed with procedure.
[2024-03-14] MEDS: ceFAZolin 2 GM/D5W 50 ML 2 GM/50 ML BAG IVPB ×2 (07:35→16:21)
[2024-03-14] MEDS: ceFAZolin SODIUM 1 GM VIAL 3 GM (08:01)
[2024-03-14] MEDS: GENTAMICIN BONE CEMENT REFOBACIN 1 EACH TOPICAL (09:35)
[2024-03-14] MEDS: TRANEXAMIC ACID 1,000 MG/10 ML AMPUL 1000 MG IV PUSH (09:53)
[2024-03-14] MEDS: KETOROLAC 15 MG/ML VIAL (*BKC) IV PUSH ×3 (09:54→18:05)
[2024-03-14] MEDS: ceFAZolin SODIUM 1 GM VIAL 2 GM IV PUSH (09:56)
--- NOTE | 2024-03-14 10:57 | W.PM.PROC2 ---
Procedure Note - Detailed Date of Procedure 03/14/24 Pre-op Diagnosis oa left knee Post-op Diagnosis Same Procedure Performed Left total knee arthroplasty Surgeon Edward Rowe MD Industrial Maintenance Electrician Kasie Anesthesia General Description of Procedure Patient was brought to the operating room and general anesthesia was administered. The left knee was prepped and draped the usual fashion. She received 2 g of Ancef weight based vancomycin, 1 g of tranexamic acid preoperatively. Limb was exsanguinated and tourniquet elevated to 300 mmHg. A 7 in longitudinal midline incision was used and a vastus medialis splitting approach utilized splitting the vastus medialis at the level of the superior pole of patella. Partial excision of infrapatellar fat pad carried out quadriceps synovectomy performed. The patella was severely arthritic as there was complete cartilage loss and eburnation of the central patella with mild scalloping. Similarly there was eburnation of the lateral trochlear ridge. The patellar thickness was 21 mm. The patella was cut to 15 mm and a protector cap applied. A guide mendez was inserted down the femoral canal after aspiration of canal contents and using the 5 degree valgus cutting bushing, 9 mm of bone removed the distal femur. There were 2 pronounced bone cysts in the medial aspect of the medial femoral condyle. Next the tibial plateau was cut. She had severe wear anteromedially. The tibial plateau was cut to just skin the low point of the anteromedial tibial plateau defect. This unroofed a prominent anteromedial bone cyst and a posteromedial bone cyst. All bone cysts were curetted of the gelatinous membrane. Meniscal remnants were excised the PCL recessed. Alignment of the tibial cut confirmed. Flexion gap measured 8 mm medially 12 mm laterally. The femoral sizing guide was applied set at 5? of external rotation which matched Whitesides line. Posterior referencing pinholes were placed. We initially cut the femur to a size 62.5. This removed prominent peripheral osteophytes then we could see that the trial was a little bit too wide just like the other side. The tibial plateau was sized to a 67 which fit line to line at proper rotation. This was punched. We trialed with the size 10 insert which seemed a little bit loose at 90? and did not quite come out to full extension and there was no play medially or laterally at about 5? of flexion. We trialed with the 11 which gave appropriate stability with 2 mm medial opening 1 mm lateral opening at 90? and appropriate anterior posterior drawer stability but lacked even more extension. Additional 2 mm of bone was removed the distal femur at this time. We applied the size 60 vanguard cutting block and the anterior and anterior posterior chamfer cuts were revisited. On read trialing the 60 fit line to line medial to lateral with no overhang and had a nice fit. We had a positive bounce still but now we had 1 mm of medial opening and 2 mm of lateral extension. We check for posterior femoral osteophytes with there were none. Central posterior capsular release was performed conservatively. We trialed again and had just a barely positive bounce and still had the medial mm of medial opening 2 mm lateral opening. A more thorough posterior capsular release was then performed from the medial head of gastrocnemius lateral head origin. With this done the knee came out to full extension with negative bounce 1 mm medial 2 mm lateral opening and appropriate stability in all positions. Lug holes were drilled for the femoral component. The patella was sized to a 31 thin her lug holes drilled. We had put the tourniquet down at 80 minutes assess our ability to achieve full extension against gravity and at this point the limb was exsanguinated tourniquet Re elevated to 300 mmHg. Step drill was used to make multiple perforations in the tibial plateau and distal femur for cement interdigitation the bony surfaces t
--- NOTE | 2024-03-14 11:00 | PM.OP ---
Procedure Note - Brief Procedure Note - Brief Date of procedure: 03/14/24 oa left knee Procedure performed: Left total knee Surgeon: ANDRA Doan Findings: 68-year-old female underwent left total knee arthroplasty on 03/14. I was involved in the procedure including positioning the patient on the OR table and 1st assisting to the time of surgery. Total time spent was 4 hours
[2024-03-14] MEDS: oxyCODONE HCL (*CRX) 5 MG TAB IR PO ×3 (12:50→21:14)
[2024-03-14] MEDS: SODIUM CHLORIDE 0.9% IV 1,000 ML 125 ML IV CONT (12:50)
--- NOTE | 2024-03-14 12:58 | ADMGEN ---
This patient, Richelle Madrigal, was admitted to [facility] Surg Room 301-01. Patient/family oriented to hospital policies and general routines including ID bracelet, bed and alarms, visiting hours, pain management, procedures, bathroom and other care routines, personal items, smoking policy, room service/diet, and visiting hours. Information on how to activate the Rapid Response Team has been discussed. Patient/Family are encouraged to report perceived risks to care and to ask questions if they do not understand what they are told or what they should do.
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
[2024-03-14] MEDS: ACETAMINOPHEN 325 MG TABLET 650 MG PO ×3 (13:29→21:14)
[2024-03-14] MEDS: SENNA/DOCUSATE SODIUM TABLET 2 TAB PO (16:21)
[2024-03-14] MEDS: VANCOMYCIN 1,000 MG/NS 250 ML 1,000 MG/250 ML BAG 125 MG IVPB (18:18)
[2024-03-14] MEDS: TOPIRAMATE 25 MG TABLET 50 MG PO (21:13)
[2024-03-14] MEDS: VENLAFAXINE HCL 25 MG TABLET 100 MG PO (21:13)
[2024-03-14] MEDS: busPIRone HCL 5 MG TABLET 15 MG BY MOUTH (21:13)
[2024-03-14] MEDS: FAMOTIDINE 20 MG TABLET PO (21:14)
[2024-03-14] MEDS: SERTRALINE HCL 50 MG TABLET PO (21:14)
[2024-03-14] MEDS: MEMANTINE 10 MG TABLET PO (21:14)
[2024-03-14] MEDS: WATER FOR IRRIGATION, STERILE 1,000 ML BOTTLE 1000 ML (21:15)
[2024-03-14] MEDS: MIRTAZAPINE 7.5 MG TABLET PO (21:15)
--- NOTE | ~2024-03-15 | XR_ITS ---
[id number] Ordering provider: Edward Rowe MD History: . POST-OP, LEFT TKA . Comparison: None. FINDINGS: BONES: No acute fracture or dislocation. Bony fragment with surrounding lucency is seen in the medial tibial plateau area. Follow-up advised. JOINT SPACES: Total knee arthroplasty. SOFT TISSUES: Postoperative changes. IMPRESSION: No definite acute osseous abnormality left knee. Bony fragment with surrounding lucency is seen in th e medial tibial plateau area. Follow-up advised. Total knee arthroplasty. Reviewed, dictated and finalized at location A. IMPRESSION: No definite acute osseous abnormality left knee. Bony fragment with surrounding lucency is seen in the medial tibial plateau area. Follow-up advised. Total knee arthroplasty.
[2024-03-15] MEDS: ceFAZolin 2 GM/D5W 50 ML 2 GM/50 ML BAG IVPB ×2 (01:02→12:14)
[2024-03-15] MEDS: oxyCODONE HCL (*CRX) 5 MG TAB IR PO ×9 (01:03→21:12)
[2024-03-15] MEDS: ACETAMINOPHEN 325 MG TABLET 650 MG PO ×6 (01:03→21:11)
[2024-03-15 03:19] VITALS: BP 104/60; PULSE 73; RESP 16; TEMP 36.4; O2SAT 98
[2024-03-15] MEDS: LEVOTHYROXINE SODIUM 75 MCG TABLET BY MOUTH (06:20)
[2024-03-15] MEDS: VANCOMYCIN 1,000 MG/NS 250 ML 1,000 MG/250 ML BAG 250 MG IVPB (06:20)
[2024-03-15 06:24] LABS: Basophils Percent Auto 0.2 % (0.2-1.2); Eosinophils Percent Auto 0.1 % (0-4.4); Hematocrit 35.9 % (37.0-47.0); Hemoglobin 11.4 g/dL (12.0-15.0); Immature Granulocyte Absolute 0.06 K/mm3 (0.00-0.031); Immature Granulocyte Percent A 0.4 % (0-0.5); Lymphocytes Absolute Auto 2.03 K/mm3 (0.9-3.2); Lymphocytes Percent Auto 15.2 % (18.3-44.2); Mean Corpuscular HGB Conc 31.8 g/dl (32-36); Mean Corpuscular Hemoglobin 30.3 pg (26-34); Mean Corpuscular Volume 95.5 fl (80-100); Mean Platelet Volume 11.2 fl (7.4-10.4); Monocytes Absolute Auto 1.7 K/mm3 (0.1-0.6); Monocytes Percent Auto 12.6 % (2.6-8.5); Neutrophils Absolute Auto 9.6 K/mm3 (1.3-6.7); Neutrophils Percent Auto 71.5 % (45.5-73.1); Platelet Count Result 160 k/mm3 (150-375); Red Blood Count 3.76 M/mm3 (4.2-5.4); Red Cell Distribution Width 12.6 % (11.5-14.5); White Blood Count 13.4 K/mm3 (4.5-10.0)
[2024-03-15 06:43] LABS: Anion Gap 11 mmol/L (4-12); Blood Urea Nitrogen 13 mg/dL (7-17); Calcium 8.5 mg/dL (8.4-10.2); Carbon Dioxide 19 mmol/L (22-30); Chloride 111 mmol/L (98-107); Estimated CRCL calculation 60 ml/min; Estimated Glomerular Filt Rate > 60; Glucose 108 mg/dL (65-110); Potassium 3.1 mmol/L (3.4-5.0); Sodium 141 mmol/L (137-145)
[2024-03-15 08:00] VITALS: BP 131/77; PULSE 80; RESP 18; TEMP 36.3; O2SAT 98
[2024-03-15] MEDS: VENLAFAXINE HCL 25 MG TABLET 100 MG PO ×2 (08:57→21:11)
[2024-03-15] MEDS: POTASSIUM CHLORIDE 20 MEQ ER TABLET 40 MEQ PO (08:57)
[2024-03-15] MEDS: TOPIRAMATE 25 MG TABLET 50 MG PO ×2 (08:57→21:11)
[2024-03-15] MEDS: polyethylene glycoL 3350 17 GM POWD.PACK PO (08:58)
[2024-03-15] MEDS: ATORVASTATIN 10 MG TABLET PO (08:58)
[2024-03-15] MEDS: APIXABAN 2.5 MG TABLET PO ×2 (08:58→21:12)
[2024-03-15] MEDS: DOXYCYCLINE HYCLATE 100 MG TABLET PO ×2 (08:58→21:11)
[2024-03-15] MEDS: SENNA/DOCUSATE SODIUM TABLET 2 TAB PO ×2 (08:58→17:14)
[2024-03-15] MEDS: MEMANTINE 10 MG TABLET PO ×2 (08:58→21:11)
[2024-03-15] MEDS: FAMOTIDINE 20 MG TABLET PO ×2 (08:58→21:11)
[2024-03-15] MEDS: busPIRone HCL 5 MG TABLET 15 MG BY MOUTH ×2 (08:58→21:11)
[2024-03-15 12:00] VITALS: BP 122/66; PULSE 82; RESP 16; TEMP 36.6; O2SAT 98
--- NOTE | 2024-03-15 12:24 | PM.PNORT ---
Progress Note: A&P Assessment and Plan (1) Primary osteoarthritis of left knee: Code(s): M17.12 - Unilateral primary osteoarthritis, left knee Status: Acute (2) Status post knee replacement: Qualifiers: Laterality: left Qualified Code(s): Z96.652 - Presence of left artificial knee joint Code(s): Z96.659 - Presence of unspecified artificial knee joint Status: Acute Assessment and Plan: Patient is postop day 1 after left knee replacement. She has no drainage on the dressing. There is no significant swelling around the left knee. She has intact motor and sensation in the left foot. Her laboratory studies show potassium low at 3 point, hemoglobin 11.4 mild acute blood loss anemia. White count 13.4 normal expected response. She complains that her pain is not adequately controlled and she is suffering quite a bit. Aching the PRN oxycodone tablet we have ordered for her. She had the same occurrence with her previous knee replacement hospitalization in July she had to stay an extra day for pain control and she is also experience her has dementia and she would have to be caring for him. They do have someone who is a aircraft seat upholsterer stain with him until she returns. I have talked her about taking 2 Percocets which she tolerated last July and we will order 2 Percocets every 4 hours scheduled for her and I explained to her that she can ask for just 1 if that is all she feels she needs. She points out that she does have history of brain injury and memory problems. I will ask the nursing staff to prompt her regarding whether not she would prefer 1 or 2 of the oxycodone tablets Will reassess tomorrow if she is doing better plan on discharge tomorrow. Subjective Subjective Date/Time Seen: 03/15/24 12:24 Objective Data Vital Signs Vital Signs: Vital Signs - 24 hr 03/14/24 12:45 03/14/24 13:00 03/14/24 13:37 Temperature 36.3 C L 36.4 C Pulse Rate 79 81 Respiratory Rate 16 16 Blood Pressure 148/102 H 156/89 H Pulse Oximetry 100 95 Oxygen Delivery Room Air 03/14/24 14:14 03/14/24 13:30 03/14/24 14:30 Temperature 36.6 C 36.6 C Pulse Rate 84 88 Respiratory Rate 16 18 Blood Pressure 175/86 H 162/82 H Pulse Oximetry 95 96 Oxygen Delivery Room Air 03/14/24 20:31 03/14/24 20:00 03/14/24 23:08 Temperature 36.4 C L 36.3 C L Pulse Rate 87 86 Respiratory Rate 18 18 Blood Pressure 130/67 117/51 L Pulse Oximetry 92 95 Oxygen Delivery Room Air 03/14/24 22:42 03/15/24 03:19 03/15/24 08:57 Temperature 36.4 C Pulse Rate 73 Respiratory Rate 33 H 16 Blood Pressure 104/60 Pulse Oximetry 98 Oxygen Delivery CPAP Room Air Intake/Output Intake/Output: Intake & Output 03/12/24 03/13/24 03/14/24 03/15/24 23:59 23:59 23:59 23:59 Intake Total 1040 400 Output Total 300 Balance 740 400 Meds/Results Medications: Active Medications Generic Name Dose Route Start Last Admin Trade Name Freq PRN Reason Stop Dose Admin Acetaminophen 650 mg 03/14/24 14:00 03/15/24 08:57 Acetaminophen 325 Mg Tablet PO 650 mg Q4H FELIPE Administration Apixaban 2.5 mg 03/15/24 09:00 03/15/24 08:58 Apixaban 2.5 Mg Tablet PO 03/26/24 21:01 2.5 mg Q12HR FELIPE Administration Atorvastatin Calcium 10 mg 03/15/24 09:00 03/15/24 08:58 Atorvastatin 10 Mg Tablet PO 10 mg DAILY FELIPE Administration Buspirone HCl 15 mg 03/14/24 21:00 03/15/24 08:58 Buspirone Hcl 5 Mg Tablet BY MOUTH 15 mg Q12HR FELIPE Administration Diphenhydramine HCl 25 mg 03/14/24 12:16 Diphenhydramine Hcl Inj 50 Mg/Ml Vial IV PUSH Q6H PRN Itching Doxycycline Hyclate 100 mg 03/15/24 09:00 03/15/24 08:58 Doxycycline Hyclate 100 Mg Tablet PO 100 mg Q12HR FELIPE Administration Famotidine 20 mg 03/14/24 21:00 03/15/24 08:58 Famotidine 20 Mg Tablet PO 20 mg Q12HR FELIPE Administration Levothyroxine Sodium 75 mcg 03/15/24 0
--- NOTE | 2024-03-15 12:35 | P.PNIM_ITS ---
Progress Note: A&P Assessment and Plan (1) Primary osteoarthritis of left knee: Code(s): M17.12 - Unilateral primary osteoarthritis, left knee Status: Acute (2) Total knee replacement status: Code(s): Z96.659 - Presence of unspecified artificial knee joint Status: Acute (3) Hypothyroid: Code(s): E03.9 - Hypothyroidism, unspecified Status: Acute (4) Major depressive disorder, recurrent, moderate: Code(s): F33.1 - Major depressive disorder, recurrent, moderate Status: Acute (5) BMI 31.0-31.9,adult: Code(s): Z68.31 - Body mass index [BMI] 31.0-31.9, adult Status: Acute (6) Hypokalemia: Code(s): E87.6 - Hypokalemia Status: Acute Plan DJD LT Knee post total arthroplasty * Pain control * Antiemetics * Antipyretics * Eliquis 2.5 b.i.d. for DVT prophylaxis * SCD's * PT/OT * Elevate when at rest * Pain control not well controlled surgery adjusting * PPI * Antibiotics prophylaxis * Incentive spirometer while awake MDD/anxiety/TBI/dementia * Resume patient's home medications Obesity * encourage increased on physical activity and lifestyle modifications * Health eating education * BMI 83.5 Hypokalemia: * 3.1 * 40 meq replenished * f/U BMP am HX HLD: Resumed Statin Code status: Full code per patient DVT prophylaxis: Eliquis Stress ulcer prophylaxis: Pepcid PT/OT notes: PT/OT pending Disposition: Patient was admitted to the medical unit postop left the arthroplasty PT OT pending patient tolerated procedure well plan likely be for discharge home tomorrow if pain controlled. Time Spent With Patient Time with patient: 15 - 25 minutes Subjective Date/time seen: 03/15/24 12:35 Interval history: Richelle Madrigal is a 68 year old female who was a admitted post-op Left total knee arthroplasty. Patient has past medical history anxiety, dementia, hypothyroidism MDD, WILMER, and TBI. She had a previous right total knee arthroplasty last July for DJD and tolerated well. Patient was requested to be seen for any medical management during her hospitalization. Patient with no current complaints denies any chest pain, shortness a breath, nausea, vomiting, dizziness and pain tolerated at surgical site. Did well working with PT with minimal pain. 03/15/2024: Patient states pain is not controlled well, ortho adjusted her pain medication and plan to re-evaluate for discharge tomorrow. Patient K was 3.1 this am replenished repeat bmp in the am. Review of Systems Review of Systems: All systems reviewed & are unremarkable except as noted in HPI and below Exam Narrative: Physical Exam: * GENERAL: Alert and oriented x 3. No acute distress. * EYES: EOMI. No scleral icterus. PERRLA. * HEENT: Moist mucous membranes. * LUNGS: Clear to auscultation bilaterally. No accessory muscle use. * CARDIOVASCULAR: Regular rate and rhythm. No murmur. No JVD. S1-S2 * ABDOMEN: Soft, non tenderness and non-distended. No palpable masses. * EXTREMITIES: No edema. Non-tender * SKIN: No rashes or lesions. Skin warm, dry. * NEUROLOGIC: No focal neurological deficits. CN II-XII grossly intact * PSYCHIATRIC: Appropriate mood and affect. Good judgement and insight. No visual or auditory hallucinations. No suicidal or homicidal ideation. Objective Data Vital Signs Vital Signs:
--- NOTE | 2024-03-15 12:35 | PM.IMPN ---
Progress Note: A&P Assessment and Plan (1) Primary osteoarthritis of left knee: Code(s): M17.12 - Unilateral primary osteoarthritis, left knee Status: Acute (2) Total knee replacement status: Code(s): Z96.659 - Presence of unspecified artificial knee joint Status: Acute (3) Hypothyroid: Code(s): E03.9 - Hypothyroidism, unspecified Status: Acute (4) Major depressive disorder, recurrent, moderate: Code(s): F33.1 - Major depressive disorder, recurrent, moderate Status: Acute (5) BMI 31.0-31.9,adult: Code(s): Z68.31 - Body mass index [BMI] 31.0-31.9, adult Status: Acute (6) Hypokalemia: Code(s): E87.6 - Hypokalemia Status: Acute Plan DJD LT Knee post total arthroplasty Pain control Antiemetics Antipyretics Eliquis 2.5 b.i.d. for DVT prophylaxis SCD's PT/OT Elevate when at rest Pain control not well controlled surgery adjusting PPI Antibiotics prophylaxis Incentive spirometer while awake MDD/anxiety/TBI/dementia Resume patient's home medications Obesity encourage increased on physical activity and lifestyle modifications Health eating education BMI 83.5 Hypokalemia: 3.1 40 meq replenished f/U BMP am HX HLD: Resumed Statin Code status: Full code per patient DVT prophylaxis: Eliquis Stress ulcer prophylaxis: Pepcid PT/OT notes: PT/OT pending Disposition: Patient was admitted to the medical unit postop left the arthroplasty PT OT pending patient tolerated procedure well plan likely be for discharge home tomorrow if pain controlled. Time Spent With Patient Time with patient: 15 - 25 minutes Subjective Date/time seen: 03/15/24 12:35 Interval history: Richelle Madrigal is a 68 year old female who was a admitted post-op Left total knee arthroplasty. Patient has past medical history anxiety, dementia, hypothyroidism MDD, WILMER, and TBI. She had a previous right total knee arthroplasty last July for DJD and tolerated well. Patient was requested to be seen for any medical management during her hospitalization. Patient with no current complaints denies any chest pain, shortness a breath, nausea, vomiting, dizziness and pain tolerated at surgical site. Did well working with PT with minimal pain. 03/15/2024: Patient states pain is not controlled well, ortho adjusted her pain medication and plan to re-evaluate for discharge tomorrow. Patient K was 3.1 this am replenished repeat bmp in the am. Review of Systems Review of Systems: All systems reviewed & are unremarkable except as noted in HPI and below Exam Narrative: Physical Exam: GENERAL: Alert and oriented x 3. No acute distress. EYES: EOMI. No scleral icterus. PERRLA. HEENT: Moist mucous membranes. LUNGS: Clear to auscultation bilaterally. No accessory muscle use. CARDIOVASCULAR: Regular rate and rhythm. No murmur. No JVD. S1-S2 ABDOMEN: Soft, non tenderness and non-distended. No palpable masses. EXTREMITIES: No edema. Non-tender SKIN: No rashes or lesions. Skin warm, dry. NEUROLOGIC: No focal neurological deficits. CN II-XII grossly intact PSYCHIATRIC: Appropriate mood and affect. Good judgement and insight. No visual or auditory hallucinations. No suicidal or homicidal ideation. Objective Data Vital Signs Vital Signs: Vital Signs - 24 hr 03/14/24 12:45 03/14/24 13:00 03/14/24 13:37 Temperature 97.4 F L 97.6 F Pulse Rate 79 81 Respiratory Rate 16 16 Blood Pressure 148/102 H 156/89 H Pulse Oximetry 100 95 Oxygen Delivery Room Air 03/14/24 14:14 03/14/24 13:30 03/14/24 14:30 Temperature 97.8 F 97.9 F Pulse Rate 84 88 Respiratory Rate 16 18 Blood Pressure 175/86 H 162/82 H Pulse Oximetry 95 96 Oxygen Delivery Room Air 03/14/24 20:31 03/14/24 20:00 03/14/24 23:08 Temperature 97.5 F L 97.3 F L Pulse Rate 87 86 Respiratory Rate 18 18 Blood Pressure 130/67 117/51 L
--- NOTE | 2024-03-15 12:50 | P.PNAN_ITS ---
Anes - Prog Note Post-Op Date/Time: 03/15/24 12:50 Cardiovascular status: normal Respiratory status: normal Airway patency: baseline Mental status: baseline Post-Op hydration status: normal Vital Signs: Last Vital Signs Temp 36.4 C 03/15/24 03:19 Pulse 73 03/15/24 03:19 Resp 16 03/15/24 03:19 BP 104/60 03/15/24 03:19 Pulse Ox 98 03/15/24 03:19 O2 Del Method Room Air 03/15/24 08:57 O2 Flow Rate 2 03/14/24 11:45 Pain Score (VAS): 10/17 I/O: Intake & Output 03/14/24 03/15/24 03/15/24 23:59 07:59 15:59 Intake Total 540 50 350 Balance 540 50 350 Laboratory Tests 03/15/24 05:37 03/15/24 05:37 03/15/24 05:37 WBC 13.4 H RBC 3.76 L Hgb 11.4 L Hct 35.9 L MCV 95.5 MCH 30.3 MCHC 31.8 L RDW 12.6 Plt Count 160 MPV 11.2 H Immature Gran % (Auto) 0.4 Neut % (Auto) 71.5 Lymph % (Auto) 15.2 L Garrard % (Auto) 12.6 H Eos % (Auto) 0.1 Baso % (Auto) 0.2 Lymph # (Auto) 2.03 Garrard # (Auto) 1.7 H Eos # (Auto) 0.0 Baso # (Auto) 0.0 Abs Immat Gran (auto) 0.06 H Absolute Neuts (auto) 9.6 H Absolute Nucleated RBC 0.000 Nucleated RBC % 0.0 Sodium 141 Potassium 3.1 L Chloride 111 H Carbon Dioxide 19 L Anion Gap 11 BUN 13 Creatinine 0.80 Estim Creat Clear Calc 60 Estimated GFR > 60 Glucose 108 Calcium 8.5 Post-procedural complaints: none Patient Feedback: Patient satisfied with anesthetic care.
[2024-03-15 16:00] VITALS: BP 123/60; PULSE 55; RESP 18; TEMP 36.4; O2SAT 98
[2024-03-15] MEDS: MORPHINE SULFATE (*CRX) 2 MG/ML INJ IV PUSH ×3 (16:08→22:47)
[2024-03-15] MEDS: MIRTAZAPINE 7.5 MG TABLET PO (21:11)
[2024-03-15] MEDS: SERTRALINE HCL 50 MG TABLET PO (21:12)
[2024-03-16] MEDS: oxyCODONE HCL (*CRX) 5 MG TAB IR PO ×7 (00:10→13:11)
[2024-03-16] MEDS: ACETAMINOPHEN 325 MG TABLET 650 MG PO ×4 (01:10→13:11)
[2024-03-16] MEDS: LEVOTHYROXINE SODIUM 75 MCG TABLET BY MOUTH (05:16)
[2024-03-16 06:46] LABS: Anion Gap 10 mmol/L (4-12); Blood Urea Nitrogen 7 mg/dL (7-17); Calcium 8.9 mg/dL (8.4-10.2); Carbon Dioxide 21 mmol/L (22-30); Chloride 109 mmol/L (98-107); Estimated CRCL calculation 68 ml/min; Estimated Glomerular Filt Rate > 60; Glucose 108 mg/dL (65-110); Potassium 3.3 mmol/L (3.4-5.0); Sodium 140 mmol/L (137-145)
--- NOTE | 2024-03-16 07:31 | PM.PNORT ---
Subjective Subjective Date/Time Seen: 03/16/24 07:31 Interval history: Postop day 2 patient is awake. She is alert. Afebrile vital signs are stable. Dressing is intact and dry. Potassium is at 3.3 this morning. The rest of her labs are noted. She was up walking with therapy in the halls yesterday. She is still having a little bit of an issue with pain control. She is taking 2 of the oxycodone her 4 hours. She appears in no distress this morning. She is anxious and wants to go home this afternoon. Patient will work with therapy this morning and again this afternoon and then plan on discharging her home at that point Objective Data Vital Signs Vital Signs: Vital Signs - 24 hr 03/15/24 08:57 03/15/24 08:00 03/15/24 12:00 Temperature 97.3 F L 97.8 F Pulse Rate 80 82 Respiratory Rate 18 16 Blood Pressure 131/77 122/66 Pulse Oximetry 98 98 Oxygen Delivery Room Air 03/15/24 16:00 03/15/24 20:00 Temperature 97.5 F L Pulse Rate 55 L Respiratory Rate 18 Blood Pressure 123/60 Pulse Oximetry 98 Oxygen Delivery Room Air Intake/Output Intake/Output: Intake & Output 03/13/24 03/14/24 03/15/24 03/16/24 23:59 23:59 23:59 23:59 Intake Total 1040 1510 1000 Output Total 300 1 550 Balance 740 1509 450 Meds/Results Medications: Active Medications Generic Name Dose Route Start Last Admin Trade Name Irajq PRN Reason Stop Dose Admin Acetaminophen 650 mg 03/14/24 14:00 03/16/24 05:16 Acetaminophen 325 Mg Tablet PO 650 mg Q4H FELIPE Administration Apixaban 2.5 mg 03/15/24 09:00 03/15/24 21:12 Apixaban 2.5 Mg Tablet PO 03/26/24 21:01 2.5 mg Q12HR FELIPE Administration Atorvastatin Calcium 10 mg 03/15/24 09:00 03/15/24 08:58 Atorvastatin 10 Mg Tablet PO 10 mg DAILY FELIPE Administration Buspirone HCl 15 mg 03/14/24 21:00 03/15/24 21:11 Buspirone Hcl 5 Mg Tablet BY MOUTH 15 mg Q12HR FELIPE Administration Diphenhydramine HCl 25 mg 03/14/24 12:16 Diphenhydramine Hcl Inj 50 Mg/Ml Vial IV PUSH Q6H PRN Itching Doxycycline Hyclate 100 mg 03/15/24 09:00 03/15/24 21:11 Doxycycline Hyclate 100 Mg Tablet PO 100 mg Q12HR FELIPE Administration Famotidine 20 mg 03/14/24 21:00 03/15/24 21:11 Famotidine 20 Mg Tablet PO 20 mg Q12HR FELIPE Administration Levothyroxine Sodium 75 mcg 03/15/24 06:30 03/16/24 05:16 Levothyroxine Sodium 75 Mcg Tablet BY MOUTH 75 mcg DAILY@0630 FELIPE Administration Memantine 10 mg 03/14/24 21:00 03/15/24 21:11 Memantine 10 Mg Tablet PO 10 mg Q12HR FELIPE Administration Mirtazapine 7.5 mg 03/14/24 21:00 03/15/24 21:11 Mirtazapine 7.5 Mg Tablet PO 7.5 mg HS FELIPE Administration Morphine Sulfate 2 mg 03/14/24 12:16 03/15/24 22:47 Morphine Sulfate (*Crx) 2 Mg/Ml Inj IV PUSH 2 mg Q2H PRN Administration Breakthrough Pain Rated 4-6 or NPO Naloxone HCl 0.1 mg 03/14/24 12:16 Naloxone Hcl 0.4 Mg/Ml Vial IV PUSH Q2M PRN Opiate Reversal Non-Formulary Medication 75 mg 03/15/24 09:00 Vibegron [Gemtesa] PO 04/14/24 08:59 DAILY FELIPE Ondansetron HCl 4 mg 03/14/24 12:16 Ondansetron Inj 4 Mg/2 Ml Vial IV PUSH Q4H PRN Nausea And Vomiting Oxycodone HCl 5 mg 03/14/24 13:00 03/16/24 05:16 Oxycodone Hcl (*Crx) 5 Mg Tab Ir PO 5 mg Q4HR FELIPE Administration Oxycodone HCl 5 mg 03/14/24 12:16 03/16/24 05:19 Oxycodone Hcl (*Crx) 5 Mg Tab Ir PO 5 mg Q4H PRN Administration Pain Rated 7-10 Polyethylene Glycol 17 gm 03/15/24 09:00 03/15/24 08:58 Polyethylene Glycol 3350 17 Gm Powd.Pack PO 17 gm QAM FELIPE Administration Senna/Docusate Sodium 2 tab 03/14/24 17:00 03/15/24 17:14 Senna/Docusate Sodium Tablet PO 2 tab BID FELIPE Administration Sertraline HCl 50 mg 03/14/24 21:00 03/15/24 21:12 Sertraline Hcl 50 Mg Tablet PO 50 mg HS FELIPE Administration Topiramate 50 mg 03/14/24 21:00 03/15/24 21:11 Top
--- NOTE | 2024-03-16 07:38 | PM.DS ---
DS: Admitting Diagnosis Discharge Date 03/16 Admitting Diagnosis Left knee DJD DS: Discharge Diagnosis Discharge Diagnosis (1) Primary osteoarthritis of left knee: Code(s): M17.12 - Unilateral primary osteoarthritis, left knee Status: Acute DS: Summary Hospital Course Hospital Course: 68-year-old female who underwent left total knee arthroplasty on 03/14. Underwent the procedure without complications. Postoperatively she has been afebrile vital signs are stable. She was having issues with pain control on postop day 1. She has been taking to the oxycodone every 4 hours as well as scheduled Tylenol every 4 hours. We are not using Celebrex on her while she is on the Eliquis due to her history of brain injury. She is on Eliquis for DVT prophylaxis. She is weight-bearing as tolerated. Postop day 1 patient is potassium was at 3.1 and it was felt that it would be safest to keep her an additional day on postop day 2 was 3.3. Rest of her labs were stable. Patient's pain was doing better on postop day 2. She was up walking with therapy in the hallways on postop day 1. Dressing is dry and intact. Neurovascularly she is intact. She is going to be discharged home on 03/16. She has outpatient therapy starting in 2 days. Patient was advised to keep leg elevated home prevent swelling but also do her exercises on hourly basis. She will go home with 2 week course of doxycycline as well as Senokot and MiraLax. Patient was advised any questions or concerns she is to call the office otherwise we will see her at her appointments. Time Spent with Patient Time attestation: Total time spent providing and/or coordinating discharge services: DS: Data Data Completed and Pending Labs on day of discharge: Labs from last 24 hours 03/16/24 06:00 Sodium 140 Potassium 3.3 L Chloride 109 H Carbon Dioxide 21 L Anion Gap 10 BUN 7 D Creatinine 0.70 Estim Creat Clear Calc 68 Estimated GFR > 60 Glucose 108 Calcium 8.9 Discharge Plan Discharge Attending physician on discharge: Edward Rowe Consulting providers: Ruthy Askew Discharging Clinician: Deyvi Ferro Anticipated Discharge Date/Time: 03/16/24 16:00 Patient Disposition: Home, Self-Care Activity: may shower Diet: as tolerated Wound Care Instructions: follow printed instructions Discharge Instructions: EDWARD ROWE M.D [facility] [address] [address] [address] [place] [address] POST-OPERATIVE DISCHARGE INSTRUCTIONS TOTAL KNEE ARTHROPLASTY 1. When resting, do not rest in the chair.When resting, lie on your back, with back flat on the couch or bed, with leg elevated above heart to minimize swelling. You may put a pillow under your head. . Significant swelling could indicate a blood clot and if this occurs call the office (or go to the ER) to have a venous ultrasound. Therefore, do not rest in a chair. 2. At least five times a day spend several minutes stretching your knee into flexion while sitting in the chair and also stretching your knee out straight The abilities to bend your knee fully and straighten your knee fully are two most important knee functions to focus on during your recovery. 3. It is ok to sit in chair to eat, use the toilet and receive a guest and to do your stretching exercises, but, sitting in a chair will cause your leg to swell. Therefore, avoid additional time sitting in the chair. and don't rest in the chair. 4. Wound Care: Nursing will give you an additional Mepilex dressing at the time of discharge. Patient to remove the dressing and apply a new Mepilex dressing at home 7 days after surgery and leave the dressing on until seen in office. It is normal to see a small amount of blood on the silver pad of the Mepilex dressing. Its designed to hold small spots of blood. However, if the blood reaches the edge of the pad up to the boarder of the clear membrane earline
[2024-03-16] MEDS: polyethylene glycoL 3350 17 GM POWD.PACK PO (09:07)
[2024-03-16] MEDS: VENLAFAXINE HCL 25 MG TABLET 100 MG PO (09:07)
[2024-03-16] MEDS: MEMANTINE 10 MG TABLET PO (09:08)
[2024-03-16] MEDS: SENNA/DOCUSATE SODIUM TABLET 2 TAB PO (09:08)
[2024-03-16] MEDS: DOXYCYCLINE HYCLATE 100 MG TABLET PO (09:08)
[2024-03-16] MEDS: ATORVASTATIN 10 MG TABLET PO (09:08)
[2024-03-16] MEDS: TOPIRAMATE 25 MG TABLET 50 MG PO (09:09)
[2024-03-16] MEDS: APIXABAN 2.5 MG TABLET PO (09:09)
[2024-03-16] MEDS: FAMOTIDINE 20 MG TABLET PO (09:09)
[2024-03-16] MEDS: POTASSIUM CHLORIDE 20 MEQ PACKET (FOR LIQUID) 40 MEQ PO (09:09)
[2024-03-16] MEDS: busPIRone HCL 5 MG TABLET 15 MG BY MOUTH (09:09)
[2024-03-16 10:51] VITALS: O2SAT 94
[2024-03-16] MEDS: MORPHINE SULFATE (*CRX) 2 MG/ML INJ IV PUSH (14:13)
== END 2024-03-16 15:01 | disposition home or self-care (01) ==
LOC: ANHSURGERY 12:35 → ANH3MEDSUR 13:53
PROVIDERS: Physician Assistant Surgical; Admitting Provider Orthopaedic Surgery; PCP Family Medicine Adolescent Medicine; Visit Provider Nurse Practitioner Acute Care
PROC: (CPT 27447; principal; 2024-03-14 07:30)
DX: M17.12 Unilateral primary osteoarthritis, left knee (principal); E87.6 Hypokalemia; E03.9 Hypothyroidism, unspecified; E78.00 Pure hypercholesterolemia, unspecified; G47.33 Obstructive sleep apnea (adult) (pediatric); F03.90 Unspecified dementia, unspecified severity, without behavioral disturbance, psychotic disturbance, mood disturbance, and anxiety; F41.9 Anxiety disorder, unspecified; L40.9 Psoriasis, unspecified; F33.1 Major depressive disorder, recurrent, moderate; Z87.820 Personal history of traumatic brain injury; Z72.0 Tobacco use; E66.9 Obesity, unspecified; Z68.33 Body mass index [BMI] 33.0-33.9, adult
CPT/HCPCS: 27447; 36415; 73560; 80048; 85025; 86850; 86880; 86900; 86901; 86902; 86922; 97110; 97116; 97161; 97165; 97530; 97535; A9270; C1713; C1776; G0378; J0171; J0330; J0690; J1100; J1170; J1885; J2270; J2371; J2405; J2704; J2795; J3010; J3370; J7030; J7120

== ENCOUNTER 2024-03-19 11:08 | Emergency (ER) | payer OTHER, SELFPAY ==
--- NOTE | ~2024-03-19 | US_ITS ---
EXAMINATION: US venous doppler [facility] DATE: 03/19/2024 15:28 INDICATION: Left lower limb swelling. TECHNIQUE: Grayscale ultrasound images without and with compression and Doppler ultrasound images of the left lower extremity veins were obtained. COMPARISON: Ultrasound 02/15/2024 FINDINGS: The visualized portions of left common femoral vein, profunda (deep) femoral vein, femoral vein, popl iteal vein, peroneal veins, posterior tibial veins, and greater saphenous vein outflow are patent. IMPRESSION: 1. No deep venous thrombosis. Reviewed, dictated and finalized at location E.
--- NOTE | ~2024-03-19 | XR_ITS ---
EXAMINATION: XR knee LT 3V DATE: 03/19/2024 15:42 INDICATION: Left knee postoperative infection. TECHNIQUE: 3 views of left knee were obtained. COMPARISON: Left knee radiographs 03/14/2024 FINDINGS: There is a total left knee arthroplasty with patellar resurfacing in near-anatomic alignmen t. No fracture. No periprosthetic lucencies to suggest loosening or infection. There is a small knee joint effusion. There is anterior knee soft tissue swelling. IMPRESSION: 1. Total left knee arthroplasty in near-anatomic alignment. 2. Small left knee joint effusion. Reviewed, dictated and finalized at location E.
[2024-03-19 11:13] VITALS: BP 138/74; PULSE 79; RESP 18; TEMP 36.5; O2SAT 97
--- NOTE | 2024-03-19 14:46 | ED.RECABL ---
HPI - Recheck/Abnormal Lab/Rx General Chief Complaint: Recheck/Abnormal Lab/Rx Stated Complaint: post op infection Time Seen by Provider: 03/19/24 14:29 History of Present Illness HPI narrative: This is a 68-year-old female who is status post left total knee arthroplasty on 03/14. She was discharged from the hospital several days later after she was having good recovery with PT and OT and was tolerating weight-bearing. She presents to the ED today at the request of her orthopedic surgeon for concerns of a surgical site or postoperative infection. Patient has been having persistent redness and swelling, pain with movement in the left lower extremity at the knee and around the surgical site that occurred over the last day or so and was not present upon discharge. History of DVTs and does take Eliquis presently. She was sent home on doxycycline as well as pain medications and states she has been taking them without any relief of her pain or symptoms. Denies any systemic features of symptoms such as fever, chills, nausea vomiting, headache. Was otherwise in her normal state of health. No traumas injuries or falls. Related Data Home Medications Medication Instructions Recorded Confirmed sertraline 50 mg tablet 50 mg PO HS 07/13/23 03/13/24 ascorbic acid (vitamin C) 1,000 mg 1 g PO DAILY 01/29/24 03/13/24 capsule magnesium 500 mg tablet 15 mg PO DAILY 01/29/24 03/13/24 mirtazapine 15 mg tablet 7.5 mg PO HS 01/29/24 03/13/24 vibegron 75 mg tablet (Gemtesa) 75 mg PO DAILY 02/17/24 03/13/24 Allergies Allergy/AdvReac Type Severity Reaction Status Date / Time No Known Allergies Allergy Verified 03/14/24 07:39 Review of Systems Review of Systems: As reviewed above in HPI [facility] Past Medical History Medical History Anxiety BMI 31.0-31.9,adult Dementia Hypothyroid Major depressive disorder, recurrent, moderate Migraine WILMER (obstructive sleep apnea) Polyarthritis Psoriasis Pure hypercholesterolemia, unspecified Traumatic brain injury - 1975, 20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 at time of incident Surgical History Surgical History History of hysterectomy History of lumbar surgery 2012 History of nasal septoplasty 06/29 History of total left knee replacement (03/2024) History of total right knee replacement (07/2023) 08/05/23 Dr Rowe History of tracheostomy 1975, has since been reversed Presence of programmable ventriculoperitoneal shunt 2014 - follows with [facility] Neuro Family History Family History Father Lung cancer Acute myocardial infarction Heart disease Hypertension Mother Liver cancer Depression Sibling , cancer Acute myocardial infarction Sibling No problems noted. Social History Social History Smoking packs per day: 1 Smoking cigarettes per day: 20.0 Years smoked: 4 Smoking pack-years: 4.00 Smoking status: Former smoker Second hand tobacco smoke exposure: No Additional smoking assessment comments: NEVER SMOKED ROUTINELY, BUT SMOKES AN OCCASSIONAL CIGARETTE PER PT Alcohol intake: current Alcohol use details: RARELY - MAYBE 1-2 YR Substance use: never Substance use type: does not use Do You Feel Safe in your Home?: Yes Lack of Transportation: No Lack of Food: Never True Current Housing: I Have Housing Concerned About Future Housing: No Difficulty Paying Gas/Electric Bills: No Difficulty Paying for Meds: No Currently Unemployed: No Education: Associate Degree Difficulty w/ Childcare or Family Care: No Living arrangements: with family Additional living arrangements comments: [facility] [employer] 3 HRS X 5 DAYS/WEEK Occupation/Education: retired Additional occupation/edu
--- NOTE | 2024-03-19 15:22 | PC.NURSE ---
Dr. 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
[2024-03-19] MEDS: LACTATED RINGERS 1,000 ML 999 ML IV CONT (16:12)
[2024-03-19] MEDS: MORPHINE SULFATE (*CRX) 4 MG/ML INJ 6 MG IV PUSH (16:13)
[2024-03-19 19:13] LABS: Basophils Absolute Auto 0.1 K/mm3 (0.0-0.1); Eosinophils Absolute Auto 0.3 K/mm3 (0-0.3); Eosinophils Percent Auto 3.5 % (0-4.4); Hematocrit 41.2 % (37.0-47.0); Hemoglobin 13.6 g/dL (12.0-15.0); Immature Granulocyte Absolute 0.06 K/mm3 (0.00-0.031); Immature Granulocyte Percent A 0.8 % (0-0.5); Lymphocytes Absolute Auto 2.25 K/mm3 (0.9-3.2); Lymphocytes Percent Auto 28.5 % (18.3-44.2); Mean Corpuscular Hemoglobin 30.4 pg (26-34); Mean Platelet Volume 10.5 fl (7.4-10.4); Monocytes Percent Auto 12.9 % (2.6-8.5); Neutrophils Absolute Auto 4.2 K/mm3 (1.3-6.7); Neutrophils Percent Auto 53.3 % (45.5-73.1); Platelet Count Result 232 k/mm3 (150-375); Red Blood Count 4.48 M/mm3 (4.2-5.4); Red Cell Distribution Width 12.5 % (11.5-14.5); White Blood Count 7.9 K/mm3 (4.5-10.0)
[2024-03-19 19:25] VITALS: BP 132/70; PULSE 82; RESP 19; O2SAT 99
[2024-03-19 19:34] LABS: Anion Gap 15 mmol/L (4-12); Blood Urea Nitrogen 13 mg/dL (7-17); Calcium 8.6 mg/dL (8.4-10.2); Carbon Dioxide 16 mmol/L (22-30); Chloride 107 mmol/L (98-107); Estimated CRCL calculation 72 ml/min; Estimated Glomerular Filt Rate > 60; Glucose 89 mg/dL (65-110); Potassium 3.5 mmol/L (3.4-5.0); Sodium 138 mmol/L (137-145)
--- NOTE | 2024-03-19 20:09 | PC.NURSE ---
Pt visitor comes to this RN and states I gave her an Oxy at 6 pm, I just didnt want her to get behind
== END 2024-03-19 20:52 | disposition home or self-care (01) ==
PROVIDERS: Emergency Provider Student in an Organized Health Care Education/Training Program; PCP Family Medicine Adolescent Medicine
DX: G89.18 Other acute postprocedural pain (principal); M25.562 Pain in left knee; E03.9 Hypothyroidism, unspecified; F03.90 Unspecified dementia, unspecified severity, without behavioral disturbance, psychotic disturbance, mood disturbance, and anxiety; Z86.718 Personal history of other venous thrombosis and embolism; Z79.01 Long term (current) use of anticoagulants; Z79.899 Other long term (current) drug therapy; Z87.891 Personal history of nicotine dependence
CPT/HCPCS: 36415; 73562; 80048; 85025; 86140; 93971; 96361; 96374; 99284; J2270; J7120

== ENCOUNTER 2024-04-21 13:00 | Outpatient (RCR) | payer OTHER, SELFPAY ==
--- NOTE | 2024-03-17 16:25 | PTOPEVAL1 ---
Assessment and note entered by Coy [facility] Evaluation Information Assessment Status Evaluation Diagnosis left TKA ICD-10 Condition Codes (PT) Z47.1 Onset 03/14/24 Subjective Information Pt. reports she underwent surgery on 03/14/24. She reports she has been doing occasional exercise, but not as often as recommended. She reports that she lives with her who has dementia, but he is only a slight help. She reports she is currently using a walker and states that she is not driving. Prior to surgery she reports she was able to complete all IADL's and house hold activities without assistance. She report that her goal for therapy is to be able to walk normally in the community again. Reported Pain Level Pain Score 6: Self Report Assessment PT Clinical Summary Pt. is a 68 year old female who enters the clinic with a diagnosis of s/p left TKA. She presents with decreased ROM, edema, impaired gait, functional decline, weakness and pain. continued skilled PT is indicated in order to improve these areas to allow the pt. to be achieve her goal of normal gait. Plan of Care Interventions Electrical Stimulation,Gait Training,Manual Therapy,Neuro Re-education,Patient/Caregiver Educati,Therapeutic Activities,Therapeutic Exercise PT Services Indicated Yes Treatment Frequency and 2x/week x 10 visits Duration These treatments will address the objective and functional deficits as defined above. The patient will be advanced safely and appropriately in order for the patient to progress towards his/her prior level of function. Additional exercises will be introduced and as well as a comprehensive home exercise program upon discharge, if needed, ?to ensure carryover of functional gains achieved in the clinic. This treatment plan has been reviewed and agreement upon by the patient.
--- NOTE | 2024-03-17 16:36 | OPREHPOC ---
Outpatient Therapy Plan of Care This is a Multidisciplinary Plan of Care that may contain components documented by all disciplines (PT, OT, and ST.) PT Problem 1 PT Problem #1 Knowledge Deficit PT Goal 1 Goal Pt. will be independent with a HEP addressing ROM caodaism Pt. will provide verbal confirmation of understanding of Dr. Rowe's rehab protocol. Target Visit 2 PT Problem 2 PT Problem #2 Impaired Gait PT Goal 1 Goal Pt. will ambulate for a distance of 1000' without an AD with equal right and left stance time to prepare for community ambulation. Target Visit 10 PT Problem 3 PT Problem #3 Impaired Range of Motion PT Goal 1 Goal Pt. will demonstrate 0-125 degrees active ROM at the left knee joint Target Visit 10 PT Problem 4 PT Problem #4 Impaired Strength PT Goal 1 Goal Pt. will present with 5/5 l.e. strength in all mm. groups Target Visit 10 PT Problem 5 PT Problem #5 Impaired Functional Mobil PT Goal 1 Goal Pt. will navigate steps with a reciprocal pattern Pt. will decrease girth measurements at the left knee joint line to 42 cm or less. Target Visit 10
--- NOTE | 2024-04-18 13:22 | PCPTNOTE ---
Called and canceled due to schedule conflict. AKS
--- NOTE | 2024-04-21 13:51 | PTOPDC ---
Assessment and note entered by Coy Berman Evaluation Information Assessment Status Discharge Diagnosis left TKA ICD-10 Condition Codes (PT) Z47.1 Onset 03/14/24 Subjective Information Pt. reports that her pain is minimal. She states that she has returned to driving and is doing all IADL's. She states that she is sleeping through the night. She states that she will continue with her HEP and is ready for discharge at this time. Reported Pain Level Pain Score 2: Self Report Assessment PT Clinical Summary Pt. has attended a total of 9 treatment sessions. She has met majority of goals established at the initial evaluation and is independent with her HEP . She will be discharged from our care at this time. Plan of Care PT Services Indicated No
== END 2024-04-21 16:27 | disposition home or self-care (01) ==
LOC: ANHPT 13:00
PROVIDERS: PCP Family Medicine Adolescent Medicine; Visit Provider Orthopaedic Surgery
DX: M17.11 Unilateral primary osteoarthritis, right knee (principal); Z96.651 Presence of right artificial knee joint
CPT/HCPCS: 97110; 97116; 97140; 97161; 97530

== ENCOUNTER 2024-12-12 11:00 | Outpatient (RCR) | payer OTHER, SELFPAY ==
--- NOTE | 2024-11-15 13:31 | OPREHPOC ---
Outpatient Therapy Plan of Care This is a Multidisciplinary Plan of Care that may contain components documented by all disciplines (PT, OT, and ST.) PT Problem 1 PT Problem #1 Knowledge Deficit PT Goal 1 Goal / Goal Update Alexander with HEP Target Visit 4 PT Goal 2 Goal / Goal Update 1. Report no pain greater than 2/10 for 2 consecutive weeks 2. Improve Quick DASH score by 20% plus Target Visit 8 PT Problem 2 PT Problem #2 Impaired Range of Motion PT Goal 1 Goal / Goal Update 1. Achieve 170 degrees of left shoulder flexion ROM pain free Target Visit 8 PT Problem 3 PT Problem #3 Impaired Strength PT Goal 1 Goal / Goal Update 1. Improve R shoulder external rotation strength to 4+/5 to improve stabilization of shoulder capsule for functional activity 2. Improve laura periscapular strength to 4/5 to improve scapular stability for ADL function Target Visit 8
--- NOTE | 2024-11-15 13:31 | PTOPEVAL1 ---
Assessment and note entered by Catalino Oliveros, PT Evaluation Information Assessment Status Evaluation Diagnosis M77.8 ICD-10 Condition Codes (PT) Pain in left shoulder M25.512 Onset July 2024 Subjective Information Patient reports that she recently moved from a house in [place] to a house in [place] and she is having significant pain in the shoulder . Reports that she has been noticing consistent pain at this time and some weakness ion her legs at this time. She really wants to focus on her shoulder at this time. She recently had to place her into a memory care unit due to dementia. Reported Pain Level Pain Score 4: Self Report Assessment PT Clinical Summary Patient presents with signs and symptoms consistent with shoulder impingement and potentially structural deficits. Currently mobility is near fully functional but she is showing weakness and poor overhead lift and reach ability. She will benefit form skilled therapy to address listed deficits for full functional return and pain relief. Plan of Care Interventions Gait Training,Manual Therapy,Neuro Re-education, Therapeutic Activities,Therapeutic Exercise PT Services Indicated Yes Treatment Frequency and 2x/week for 8 visits Duration These treatments will address the objective and functional deficits as defined above. The patient will be advanced safely and appropriately in order for the patient to progress towards his/her prior level of function. Additional exercises will be introduced and as well as a comprehensive home exercise program upon discharge, if needed, ?to ensure carryover of functional gains achieved in the clinic. This treatment plan has been reviewed and agreement upon by the patient.
--- NOTE | 2024-11-22 10:09 | PCPTNOTE ---
Patient called & cancelled scheduled appointment this date due to having to take her to the doctor.
--- NOTE | 2024-11-24 11:39 | PCPTNOTE ---
Pt. did not show for her PT appointment this date. Called and spoke with pt. and pt. reported she forgot about her appointment. Reminded pt. of her upcoming appointment.
--- NOTE | 2024-12-12 11:36 | OPREHPOC ---
Outpatient Therapy Plan of Care This is a Multidisciplinary Plan of Care that may contain components documented by all disciplines (PT, OT, and ST.) PT Problem 1 PT Problem #1 Knowledge Deficit PT Goal 1 Goal / Goal Update [place] with HEP Target Visit 4 Progress Met PT Goal 2 Goal / Goal Update 1. Report no pain greater than 2/10 for 2 consecutive weeks 2. Improve Quick DASH score by 20% plus Target Visit 8 Progress Met PT Problem 2 PT Problem #2 Impaired Range of Motion PT Goal 1 Goal / Goal Update 1. Achieve 170 degrees of left shoulder flexion ROM pain free Target Visit 8 Progress Not Met PT Problem 3 PT Problem #3 Impaired Strength PT Goal 1 Goal / Goal Update 1. Improve R shoulder external rotation strength to 4+/5 to improve stabilization of shoulder capsule for functional activity 2. Improve laura periscapular strength to 4/5 to improve scapular stability for ADL function Target Visit 8 Progress Met
--- NOTE | 2024-12-12 11:37 | PTOPDC ---
Assessment and note entered by Nakia Samuels DPT Evaluation Information Assessment Status Discharge Diagnosis M77.8 ICD-10 Condition Codes (PT) Pain in left shoulder M25.512 Onset July 2024 Subjective Information Highest pain in last week 1/0 and lowest 0/10. Overall reports her pain has dramatically improved with therapy. She is now able to lay on her left side for a short time and can do reaching tasks as well as lift heavier items now. Reports she does not see a need for continued therapy at this time. Reported Pain Level Pain Score 1: Self Report Assessment PT Clinical Summary The patient has made excellent progress in therapy . She reports greatly decreased pain to 1/10 worst and is able to do more tasks at home. She demonstrates improved cervical range of motion and greatly improved left shoulder strength. Due to her progress, discharge is recommended at this time. She has been educated to continue HEP to continue progressing independently and to follow up with MD and/or PT as needed. QuickDASH- 4.5% disability. Plan of Care PT Services Indicated No
== END 2024-12-12 11:59 | disposition home or self-care (01) ==
LOC: ANHGOSHPT 11:00
PROVIDERS: PCP Family Medicine Adolescent Medicine; Visit Provider Family Medicine Adolescent Medicine
DX: M77.8 Other enthesopathies, not elsewhere classified (principal); M17.12 Unilateral primary osteoarthritis, left knee; Z96.651 Presence of right artificial knee joint
CPT/HCPCS: 97110; 97140; 97161; 97530

== ENCOUNTER 2025-01-25 10:12 | Outpatient (CLI) | payer OTHER, SELFPAY ==
--- NOTE | ~2025-01-25 | XR_ITS ---
Left Shoulder Technique: AP and axillary views were obtained. Clinical History: Other enthesopathy Findings: No fracture or dislocation is seen. Osseous alignment is anatomic. The glenohumeral and acr omioclavicular joint spaces are preserved. Soft tissues are unremarkable. Impression: Unremarkable left shoulder radiographs. Reviewed, dictated and finalized at [facility]. Impression: Unremarkable left shoulder radiographs.
--- OUTSIDE RECORDS SUMMARY | 2025-01-25 11:33 | XMS_ITS | Referral Summary ---
Author Organization [facility] [address] [place] [address] Care Team Providers Care Android Framework Developer Name Role Phone Austin Quiroga MD Primary Care Prov ider Allergies No known active allergies Medications atorvastatin (LIPITOR) 10 mg tabletIndications :hyperlipidemia Take 10 mg by mouth every morning Active busPIRone (BUSPAR) 15 mg tabletIndications :Generalized Anxiety Disorder Take 15 mg by mouth 2 (two) times a day Active donepeziL (ARICEPT) 5 mg tabletIndications :memory Take 5 mg by mouth nightly 1 Active levothyroxine (SYNTHROID) 75 mcg tabletIndications :hypothyroidism Take 75 mcg by mouth obiee obia solution architect before breakfast 1 Active methylphenidate ER (CONCERTA) 27 mg CR tabletIndications :Attention-Defici t Hyperactivity Disorder Take 27 mg by mouth every morning 1 Active SUMAtriptan (IMITREX) 100 mg tablet Take 100 mg by mouth once as needed for migraine 1 Active topiramate (TOPAMAX) 50 mg tabletIndications :Migraine Prevention Take 50 mg by mouth as needed 1 Active venlafaxine (EFFEXOR) 100 mg tabletIndications :major depressive disorder Take 100 mg by mouth 2 (two) times a day 1 Active mirtazapine (REMERON) 30 mg tabletIndications :sleep Take 30 mg by mouth nightly Active diclofenac DR (VOLTAREN) 75 mg EC tabletIndications :pain Take 75 mg by mouth 2 (two) times a day 2 Active memantine (NAMENDA) 5 mg tabletIndications :memory Take 5 mg by mouth every morning 2 Active predniSONE (DELTASONE) 10 mg tablet PLEASE SEE ATTACHED FOR DETAILED DIRECTIONS 3 Active Hospital, Clinic, or Other Facility Administered Medication Ordered Dose Route Frequency Start Date End Date Status lidocaine (XYLOCAINE) 10 mg/mL (1 %) injection 2-10 mg 2 - 10 mg OTHER Once as needed 09/06/2021 Active Active Problems Problem Noted Date Diagnosed Date Acute meniscal tear of left knee 07/24/2021 Acquired hallux rigidus 07/24/2021 Acquired trigger finger 07/24/2021 Contusion 07/24/2021 Derangement of knee 07/24/2021 Disorder of lower extremity 07/24/2021 Localized primary osteoarthritis of wrist 2020 Osteoarthritis 07/24/2021 Pain in limb 07/24/2021 WILMER (obstructive sleep apnea) 07/23/2021 Normal pressure hydrocephalus 01/18/2015 Brain injury 11/10/2014 Migraine headache 11/10/2014 Immunizations Immunization Administration Dates Next Due Tdap 10/10/2021 Social History Tobacco Use Types Packs/Day Years Used Date Smoking Tobacco: Former Cigarettes 0.2 1 2 020 - 2020 Smokeless Tobacco: Never AUDIT-C Answer Date Recorded Q1: How often do you have a drink containing alc ohol? Monthly or less 08/29/2022 Q2: How many drinks containi ng alcohol do you have on a typical day when you are drinking? 1 or 2 08/29/2022 Q3: How often do you have si x or more drinks on one occasion? 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 Gender Identity Not on file Sexual Orientation Not on file Last Filed Vital Signs Vital Sign Reading Time Taken Comments Blood Pressure 133/79 11/28/2021 9:59 AM CDT Pulse 80 11/28/2021 9:59 AM CDT Temperature 35.8 C (96.4 F) 11/28/2021 9:59 AM CDT Respiratory Rate 27 11/15/2021 10:55 AM CDT Oxygen Saturation 99% 11/28/2021 9:59 AM CDT Inhaled Oxygen Concentration - - Weight 86.9 kg (191 lb 9.6 oz) 08/29/2022 12:50 PM WOOD FLOOR LAYER Height 157.5 cm (5' 2) 08/29/2022 12:50 PM WOOD FLOOR LAYER Body Mass Index 35.04 08/29/2022 12:50 PM WOOD FLOOR LAYER Plan of Treatment Not on file Medical Devices Implanted Type Area Enrollment Manager Device Identifier Shelf Expiration Date Model / Serial / Lot Tripe Finisher Shunt N/A: Head Insurance [facility] Care Teams Android Framework Developer Relationship Specialty Start Date End Date Austin Quiroga MD [address] [place] [address] PCP - General Family Medicine 06/21/21
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
--- OUTSIDE RECORDS SUMMARY | 2025-01-25 11:34 | XMS_ITS | Patient Health Record ---
Author Organization [facility] Address [address] [place] [address] Care Team Providers Care Corporate Compliance Manager Name Role Phone Junaid DICKENS, [place] Primary Care Provider Ruthy Saab Unavailable [phone] Reyna Modoy Unavailable [phone] Allergies No Known Allergies Reason For Referral No Information Medications Medication SIG (Take, Route, Frequency, Duration) Notes Start Date End Date Status Ketoconazole 2% External 12/22/2023 Act demetria Estradiol 0.01 % (0.1 mg/gram) Vaginal *Pick strength-form from [employer] for eRX* 12/22/2023 Active Atorvastatin Calcium 10 MG Oral 12/22/2023 Active Levothyroxine Sodium 75 MCG Oral 12/22/2023 Active busPIRone HCl 15 MG 1 tablet Oral Twice a day for 90 days Active Myrbetriq 25 MG Oral 12/22/2023 Not -Taking Venlafaxine HCl 100 MG 1 tablet with food Oral twice a day for 90 days Active traMADol HCl 50 MG Oral 12/22/2023 Active Memantine HCl 10 MG 1 tablet Oral twice a day for 90 days Active Donepezil HCl 10 MG 1 tablet at bedtime Oral Once a day for 90 days Active Meloxicam 7.5 MG Oral 12/22/2023 Ac tive Sertraline HCl 100 MG 1 tablet Oral Once a day for 90 days Active Topiramate 50 MG Oral 12/22/2023 Ac tive oxyBUTYnin Chloride ER 10 MG Oral 12/22/2023 Active SUMAtriptan Succinate 100 MG Oral 12/22/2023 Active Immunizations Vaccine Route Administration Date Status Comme nts Influenza, unspecified formulation Unknown 06/05/2022 A dministered Influenza, unspecified formulation Unknown 06/16/2023 A dministered Andres Covid-19 Vaccine Unknown 10/16/2020 Administere d Pfizer [employer] Covid-19 Vac cine 2nd dose Unknown 10/31/2021 Administered Social History Tobacco Use: Social History Observation [...] past year? Monthly or less (1 point) Section Notes: Do you or have you ever smok ed tobacco?: Former smokerHow much tobacco do you smoke?: NoneWhen did you quit smoking?: 16+ years since last cigaretteDo you or have you ever used any other forms of tobacco or nicotine?: NoDo you or have you ever used e-cigarettes or vape?: Never used electronic cigarettesWhat was the date of your most recent tobacco screening?: 08/04/2023Has tobacco cessation counseling been provided?: YesOn what date was tobacco cessation counseling provided?: 06/04/2021What is your level of alcohol consumption?: OccasionalHow many years have you consumed alcohol?: 20Have you ever been counseled for unhealthy alcohol use?: NoDo you use any illicit or recreational drugs?: NoWhich illicit or recreational drugs have you used?: Smoked Pot... back when I was a teen-agerHave you used IV drugs?: NoWhat is your level of caffeine consumption?: ModerateEducation and OccupationWhat is the highest grade or level of school you have completed or the highest degree you have received?: Associate degree: occupational, technical, or vocational programAre you currently in school?: NoAre you currently employed?: NoWho is your employer?: Retired On disabilityMarriage and SexualityWhat is your relationship status?: MarriedAre you sexually active?: NoDo you use protection during sex?: NoHow many children do you have?: 2Home and EnvironmentAre you a caregiver?: YesDo you have any pets?: NoDo you have smoke and carbon monoxide detectors in your home?: YesAre you passively exposed to smoke?: NoAre there any smokers in your house?: NoAre there any guns present in your home?: NoDiet and ExerciseWhat type of diet are you following?: RegularLifestyleDo you use your seat belt or car seat routinely?: YesAdvance DirectiveDo you have an advance directive?: YesDo you have a medical power of estate planning attorney?: YesPublic Health and TravelHave you been to an area known to be high risk for COVID-19?: NoActivities of Daily LivingAre you able to care for yourself?: YesAre you blind or do you have difficulty seeing?: NoAre you deaf or do you have serious difficulty hearing? : NoDo you have difficulty concentrating, remembering or making decisions?: YesDo you have difficulty walking or climbing stairs?: NoDo you have difficulty dressing or bathing?: NoDo you have difficulty doing errands alone?: NoAre you able to walk?: Yes: walks without restrictionsDo you have transportation difficulties?: NoGender Identity and LGBTQ IdentityGender identity: Identifies as FemaleAssigned sex at : FemaleSexual orientation: Straight or heterosexual Do you or have you ever smok ed tobacco?: Former smokerHow much tobacco do you smoke?: NoneWhen did you quit smoking?: 16+ years since last cigaretteDo you or have you ever used any other forms of tobacco or nicotine?: NoDo you or have you ever used e-cigarettes or vape?: Never used electronic cigarettesWhat was the date of your most recent tobacco screening?: 08/04/2023Has tobacco cessation counseling been provided?: YesOn what date was tobacco cessation counseling provided?: 06/04/2021What is your level of alcohol consumption?: OccasionalHow many years have you consumed alcohol?: 20Have you ever been counseled for unhealthy alcohol use?: NoDo you use any illicit or recreational drugs?: NoWhich illicit or recreational drugs have you used?: Smoked Pot... back when I was a teen-agerHave you used IV drugs?: NoWhat is your level of caffeine consumption?: ModerateEducation and OccupationWhat is the highest grade or level of school you have completed or the highest degree you have received?: Associate degree: occupational, technical, or vocational programAre you currently in school?: NoAre you currently employed?: NoWho is your employer?: Retired On disabilityMarriage and SexualityWhat is your relationship status?: MarriedAre you sexually active?: NoDo you use protection during sex?: NoHow many children do you have?: 2Home and EnvironmentAre you a caregiver?: YesDo you have any pets?: NoDo you have smoke and carbon monoxide detectors in your home?: YesAre you passively exposed to smoke?: NoAre there any smokers in your house?: NoAre there any guns present in your home?: NoDiet and ExerciseWhat type of diet are you following?: RegularLifestyleDo you use your seat belt or car seat routinely?: YesAdvance DirectiveDo you have an advance directive?: YesDo you have a medical power of estate planning attorney?: YesPublic Health and TravelHave you been to an area known to be high risk for COVID-19?: NoActivities of Daily LivingAre you able to care for yourself?: YesAre you blind or do you have difficulty seeing?: NoAre you deaf or do you have serious difficulty hearing? : NoDo you have difficulty concentrating, remembering or making decisions?: YesDo you have difficulty walking or climbing stairs?: NoDo you have difficulty dressing or bathing?: NoDo you have difficulty doing errands alone?: NoAre you able to walk?: Yes: walks without restrictionsDo you have transportation difficulties?: NoGender Identity and LGBTQ IdentityGender identity: Identifies as FemaleAssigned sex at : FemaleSexual orientation: Straight or heterosexual Do you or have you ever smok ed tobacco?: Former smokerHow much tobacco do you smoke?: NoneWhen did you quit smoking?: 16+ years since last cigaretteDo you or have you ever used any other forms of tobacco or nicotine?: NoDo you or have you ever used e-cigarettes or vape?: Never used electronic cigarettesWhat was the date of your most recent tobacco screening?: 08/04/2023Has tobacco cessation counseling been provided?: YesOn what date was tobacco cessation counseling provided?: 06/04/2021What is your level of alcohol consumption?: OccasionalHow many years have you consumed alcohol?: 20Have you ever been counseled for unhealthy alcohol use?: NoDo you use any illicit or recreational drugs?: NoWhich illicit or recreational drugs have you used?: Smoked Pot... back when I was a teen-agerHave you used IV drugs?: NoWhat is your level of caffeine consumption?: ModerateEducation and OccupationWhat is the highest grade or level of school you have completed or the highest degree you have received?: Associate degree: occupational, technical, or vocational programAre you currently in school?: NoAre you currently employed?: NoWCoreDial is your employer?: Retired On disabilityMarriage and SexualityWhat is your relationship status?: MarriedAre you sexually active?: NoDo you use protection during sex?: NoHow many children do you have?: 2Home and EnvironmentAre you a caregiver?: YesDo you have any pets?: NoDo you have smoke and carbon monoxide detectors in your home?: YesAre you passively exposed to smoke?: NoAre there any smokers in your house?: NoAre there any guns present in your home?: NoDiet and ExerciseWhat type of diet are you following?: RegularLifestyleDo you use your seat belt or car seat routinely?: YesAdvance DirectiveDo you have an advance directive?: YesDo you have a medical power of estate planning attorney?: YesPublic Health and TravelHave you been to an area known to be high risk for COVID-19?: NoActivities of Daily LivingAre you able to care for yourself?: YesAre you blind or do you have difficulty seeing?: NoAre you deaf or do you have serious difficulty hearing? : NoDo you have difficulty concentrating, remembering or making decisions?: YesDo you have difficulty walking or climbing stairs?: NoDo you have difficulty dressing or bathing?: NoDo you have difficulty doing errands alone?: NoAre you able to walk?: Yes: walks without restrictionsDo you have transportation difficulties?: NoGender Identity and LGBTQ IdentityGender identity: Identifies as FemaleAssigned sex at : FemaleSexual orientation: Straight or heterosexual Problems Problem Type SNOMED Code ICD Code Onset Dates Problem Status W/U Status Risk Notes Problem Moderate recurrent major depression (94397417) Major depressive disorder, recurrent, moderate (F33.1) 12/22/19 Active confirmed Problem Generalized anxiety disorder (44486706) Generalized anxiety disorder (F41.1) 12/22/19 Active confirmed Problem Primary insomnia (0689007) Primary insomnia (F51.01) 10/19/19 Active confirmed Problem Screening for cardiovascular system disease (294801899) Encounter for screening for cardiovascular disorders (Z13.6) Active confirmed Problem Dietary management surveillance (522273669) Dietary counseling and surveillance (Z71.3) Active confirmed Problem Depression Screening (460370952) Encounter for screening for depression (Z13.31) Active confirmed Problem Vascular dementia without behavioral disturbance (1832300099854394 9) Vascular dementia without behavioral disturbance (F01.50) 12/22/19 Active confirmed Problem [id number] MDD (major depressive disorder), recurrent episode, mild (F33.0) Active confirmed Vital Signs Heart Rate 71 /min 01/24/2025 Respiratory Rate 16 /min 01/24/2025 Blood pressure diastolic 80 mm Hg 01/24/2025 Height-cm 158.75 cm 01/24/2025 Weight-kg 77.75 kg 01/24/2025 Height 62.50 in 01/24/2025 Blood pressure systolic 138 mm Hg 01/24/2025 Weight 171.4 lbs 01/24/2025 BMI 30.85 kg/m2 01/24/2025 Encounters Encounter Location Date Provider Diagnosis [employer] [address] [facility] [address] [address] 02/16/2024 Ruthy Croft Major depressive disorder, recurrent, moderate F33.1 ; Generalized anxiety disorder F41.1 ; Primary insomnia F51.01 and Vascular dementia without behavioral disturbance F01.50 [employer] [address] [facility] [address] [address] 03/03/2024 Reyna Hemann Major depressive disorder, recurrent, moderate F33.1 and Generalized anxiety disorder F41.[address] [address] 04/06/2024 Reyna Hemann Major depressive disorder, recurrent, moderate F33.1 and Generalized anxiety disorder F41.[address] [address] 04/12/2024 Ruthy Thery Major depressive disorder, recurrent, moderate F33.1 ; Generalized anxiety disorder F41.1 ; Primary insomnia F51.01 and Vascular dementia without behavioral disturbance F01.[address] [address] 08/23/2024 Ruthy Thery Major depressive disorder, recurrent, moderate F33.1 ; Generalized anxiety disorder F41.1 ; Primary insomnia F51.01 and Vascular dementia without behavioral disturbance F01.[address] [address] 09/01/2024 Ruthy Thery Major depressive disorder, recurrent, moderate F33.1 ; Generalized anxiety disorder F41.1 ; Primary insomnia F51.01 and Vascular dementia without behavioral disturbance F01.[address] [address] 10/11/2024 Ruthy Thery Major depressive disorder, recurrent, moderate F33.1 ; Generalized anxiety disorder F41.1 ; Primary insomnia F51.01 and Vascular dementia without behavioral disturbance F01.[address] [address] 11/29/2024 Ruthy Thery Encounter for screen ing for depression Z13.31 ; Encounter for screening for cardiovascular disorders Z13.6 ; Dietary counseling and surveillance Z71.3 ; Major depressive disorder, recurrent, moderate F33.1 ; Generalized anxiety disorder F41.1 ; Primary insomnia F51.01 and Vascular dementia without behavioral disturbance F01.50 [place] [id number] [facility] [address] [address] 01/10/2025 Ruthy Thery Negative depression screening Z13.31 ; MDD (major depressive disorder), recurrent episode, mild F33.0 ; Encounter for screening for depression Z13.31 ; Encounter for screening for cardiovascular disorders Z13.6 ; Dietary counseling and surveillance Z71.3 ; Generalized anxiety disorder F41.1 ; Primary insomnia F51.01 and Vascular dementia without behavioral disturbance F01.50 [facility] [employer] [facility] [address] [address] 01/24/2025 Ruthy Thervirgie Encounter for screen ing for cardiovascular disorders Z13.6 ; Negative depression screening Z13.31 ; MDD (major depressive disorder), recurrent episode, mild F33.0 ; Encounter for screening for depression Z13.31 ; Dietary counseling and surveillance Z71.3 ; Generalized anxiety disorder F41.1 ; Primary insomnia F51.01 and Vascular dementia without behavioral disturbance F01.50 [facility] [employer] [facility] [address] [address] 05/06/2024 [facility] [address] [address] 06/10/2024 [facility] [address] [address] 06/27/2024 [facility] [address] [facility] [address] [address] 06/28/2024 Ruthy Thervirgie Assessments Encounter Date Diagnosis (ICD Code) Assessment Notes Treatment Notes Treatment Clinical Notes Section Notes 02/16/2024 Major depressive disorder, recurrent, moderate (ICD-10 - F33.1) 1. Moderate recurrent major depression - mirtazapine 7.5 mg at bed time - recent GDR related to fatigue and hypersomniaZoloft 50 mg daily for depression and anxiety labs PCP obtain- scheduled to be seentherapy schedule mammogram human projectile ordered -TEST FIXTURE DESIGNER Dr. Darlene Raines knee 08/07/23 rt knee planned left knee 03/02 SSRI side effects discussed including but not [...] treatmentand patient instructions. education on serotonin syndrome F33.1: Major depressive disorder, recurrent, moderatestablesertral ine 50 mg tablet - Take 1 tablet(s) every day by oral route in the morning for 90 days. Qty: (90) tablet Refills: 0 [facility] [id number] [place] mg tablet - TAKE 1 TABLET BY MOUTH TWICE DAILY Qty: (180) tablet Refills: 0 [id number] - Take 0.5 tablet(s) every day by oral route at bedtime for 90 days, for depression. Qty: (45) tablet Refills: 0 Pharmacy: [id number] [place] Note to Pharmacy: d/c 15 mg dose 2. Generalized anxiety disorder -Venlafaxine 100 mg twice a dayBuspar 15 mg twice a dayF41.1: Generalized anxiety disorderstablebuspiro ne 15 mg tablet - TAKE 1 TABLET BY MOUTH TWICE DAILY Qty: (180) tablet Refills: 0 Pharmacy: [id number] [place] 3. Vascular dementia -Aricept 10 mg at nightNamenda 10 mg twice a dayeducation on all medications F01.50: Vascular dementia, unspecified severity, without behavioral disturbance, psychotic disturbance, mood disturbance, and anxietymemantine 10 mg tablet - Take 1 tablet(s) twice a day by oral route as directed for 90 days. Qty: (180) tablet Refills: 0 Pharm[facility]: [id number] [place] donepezil 10 mg tablet - Take 1 tablet(s) every day by oral route at bedtime for 90 days. Qty: (90) tablet Refills: 0 Pharmacy: [id number] [place] 4. Excessive day and night-time sleepiness - Remeron 7.5 mg at hlptjxiA94.19: Other hypersomnia, Preventing Depression From Coming Back: Care Instructions material was published, Depression Treatment: Care Instructions material was published, Learning About Depression material was published, Seasonal Affective Disorder: Care Instructions material was published 1. Moderate recurrent major depression - mirtazapine 7.5 mg at bed time - recent GDR related to fatigue and hypersomnia Zoloft 50 mg daily for depression and anxiety labs PCP obtain- scheduled to be seen therapy schedule mammogram human projectile ordered -TEST FIXTURE DESIGNER Dr. Darlene Brown surgery knee 08/07/23 rt knee planned left knee 03/02 SSRI side effects discussed including but not [...] treatmentand patient instructions. education on serotonin syndrome F33.1: Major depressive disorder, recurrent, moderatestablesert raline 50 mg tablet - Take 1 tablet(s) every day by oral route in the morning for 90 days. Qty: (90) tablet Refills: 0 [facility] [place] 100 mg tablet - TAKE 1 TABLET BY MOUTH TWICE DAILY Qty: (180) tablet Refills: 0 Pharmacy: [facility] [place] mirtazapine 15 mg tablet - Take 0.5 tablet(s) every day by oral route at bedtime for 90 days, for depression. Qty: (45) tablet Refills: 0 Pharmacy: [facility] [place] Note to Pharmacy: d/c 15 mg dose 2. Generalized anxiety disorder -Venlafaxine 100 mg twice a day Buspar 15 mg twice a day F41.1: Generalized anxiety disorder stable buspirone 15 mg tablet - TAKE 1 TABLET BY MOUTH TWICE DAILY Qty: (180) tablet [facility]ills: 0 [facility] 3. Vascular dementia -Aricept 10 mg at night Namenda 10 mg twice a dayeducation on all medications F01.50: Vascular dementia, unspecified severity, without behavioral disturbance, psychotic disturbance, mood disturbance, and anxiety memantine 10 mg tablet - Take 1 tablet(s) twice a day by oral route as directed for 90 days. Qty: (180) tablet Refills: 0 Pharmacy: [facility] [place] donepezil 10 mg tablet - Take 1 tablet(s) every day by oral route at bedtime for 90 days. Qty: (90) tablet Refills: 0 Pharmacy: [facility] [id number] [place] 4. Excessive day and night-time sleepiness - Remeron 7.5 mg at bedtime G47.19: Other hypersomnia 02/16/2024 Generalized anxiety disorder (ICD-10 - F41.1) Learning About Generalized Anxiety Disorder material was published, Generalized Anxiety Disorder: Care Instructions material was published, Learning About Anxiety Disorders material was published 1. Moderate recurrent major depression - mirtazapine 7.5 mg at bed time - recent GDR related to fatigue and hypersomnia Zoloft 50 mg daily for depression and anxiety labs PCP obtain- scheduled to be seen therapy schedule mammogram human projectile ordered -TEST FIXTURE DESIGNER Dr. Darlene Brown surgery knee 08/07/23 rt knee planned left knee 03/02 SSRI side effects discussed including but not [...] treatmentand patient instructions. education on serotonin syndrome F33.1: Major depressive disorder, recurrent, moderatestablesert raline 50 mg tablet - Take 1 tablet(s) every day by oral route in the morning for 90 days. Qty: (90) tablet Refills: 0 Pharmacy: [facility] [id number] [place] 100 mg tablet - TAKE 1 TABLET BY MOUTH TWICE DAILY Qty: (180) tablet Refills: 0 Pharmacy: [facility] [id number] [place] mirtazapine 15 mg tablet - Take 0.5 tablet(s) every day by oral route at bedtime for 90 days, for depression. Qty: (45) tablet Refills: 0 Pharmacy: [facility] [id number] [place] Note to Pharmacy: d/c 15 mg dose 2. Generalized anxiety disorder -Venlafaxine 100 mg twice a day Buspar 15 mg twice a day F41.1: Generalized anxiety disorder stable buspirone 15 mg tablet - TAKE 1 TABLET BY MOUTH TWICE DAILY Qty: (180) tablet Refills: 0 Pharmacy: [facility] [address] [place] 3. Vascular dementia -Aricept 10 mg at night Namenda 10 mg twice a dayeducation on all medications F01.50: Vascular dementia, unspecified severity, without behavioral disturbance, psychotic disturbance, mood disturbance, and anxiety memantine 10 mg tablet - Take 1 tablet(s) twice a day by oral route as directed for 90 days. Qty: (180) tablet Refills: 0 Pharmacy: [facility] [id number] [place] donepezil 10 mg tablet - Take 1 tablet(s) every day by oral route at bedtime for 90 days. Qty: (90) tablet Refills: 0 [facility]: [id number] [place] 4. Excessive day and night-time sleepiness - Remeron 7.5 mg at bedtime G47.19: Other hypersomnia 03/03/2024 Major depressive disorder, recurrent, moderate (ICD-10 - F33.1) 03/03/2024 Generalized anxiety disorder (ICD-10 - F41.1) 04/06/2024 Major depressive disorder, recurrent, moderate (ICD-10 - F33.1) 04/06/2024 Generalized anxiety disorder (ICD-10 - F41.1) 04/12/2024 Major depressive disorder, recurrent, moderate (ICD-10 - F33.1) pateint would like to switch therapist [employer] Response got Denied on 2024-08-23 16:37:44 for 'Mirtazapine 15 MG Tablet'Pharmacy Notes: Prescription not found. Contact Pharmacy by other means 1. Moderate recurrent major depression - mirtazapine 7.5 mg at bed time - recent GDR related to fatigue and hypersomnia Zoloft 50 mg daily for depression and anxiety labs PCP obtain- scheduled to be seen therapy- Patient would like to switch therapist in office schedule mammogram human projectile ordered -TEST FIXTURE DESIGNER Dr. Darlene Brown surgery knee 08/07/23 rt [...] on serotonin syndrome 2. Generalized anxiety disorder -Venlafaxine 100 mg twice a day Buspar 15 mg twice a day 3. Vascular dementia - Aricept 10 mg at night Namenda 10 mg twice a day education on all medications 4. Excessive day and night-time sleepiness - Remeron 7.5 mg at bedtime 08/23/2024 Major depressive disorder, recurrent, moderate (ICD-10 - F33.1) pateint would like to switch therapist 1. major depression - D/C mirtazapine 7.5 mg at bed time - related to fatigue and hypersomnia Increase Zoloft 100 mg daily for depression and anxiety is living at [facility] presently patient moved to [place] PCP obtain- scheduled to be seen therapy- schedule mammogram human projectile ordered -TEST FIXTURE DESIGNER Dr. Darlene Brown surgery knee 08/07/23 rt [...] on serotonin syndrome 2. Generalized anxiety disorder -Venlafaxine 100 mg twice a day Buspar 15 mg twice a day 3. Vascular dementia - Aricept 10 mg at night Namenda 10 mg twice a day education on all medications SLUMS = 22 08/23/24 4. Excessive day and night-time sleepiness - D/C Remeron 7.5 mg at bedtime 09/01/2024 Major depressive disorder, recurrent, moderate (ICD-10 - F33.1) pateint would like to switch therapist 1. major depression - Zoloft 100 mg daily for depression and anxiety is living at [facility] presently patient [place] labs PCP obtain- scheduled to be seen therapy- schedule mammogram human projectile ordered -TEST FIXTURE DESIGNER Dr. Darlene Brown surgery knee 08/07/23 rt [...] on serotonin syndrome 2. Generalized anxiety disorder -Venlafaxine 100 mg twice a day Buspar 15 mg twice a day 3. Vascular dementia - Aricept 10 mg at night Namenda 10 mg twice a day education on all medications SLUMS = 08/23/24 4. Excessive day and night-time sleepiness - 10/11/2024 Major depressive disorder, recurrent, moderate (ICD-10 - F33.1) pateint would like to switch therapist 1. major depression - Zoloft 100 mg daily for depression and anxiety is living at [facility] presently patient moved to [facility] labs PCP obtain- scheduled to be seen therapy- schedule mammogram human projectile ordered -TEST FIXTURE DES[employer]ER Dr. Darlene Brown surgery knee 08/07/23 rt [...] has situatinal stress with money and in fci 3. Vascular dementia - Aricept 10 mg at night Namenda 10 mg twice a day education on all medications SLUMS = 08/23/24 4. Excessive day and night-time sleepiness - improved 5. TBI hx 11/29/2024 Encounter for screening for depression (ICD-10 - Z13.31) 1. major depression - Zoloft 100 mg daily for depression and anxiety is living at [facility] presently- patient moved to [place] labs PCP obtain- scheduled to be seen therapy- schedule mammogram human projectile ordered -TEST FIXTURE DES[employer]ER Dr. Darlene Brown surgery knee 08/07/23 rt [...] has situatinal stress with money and in fci 3. Vascular dementia - Aricept 10 mg at night Namenda 10 mg twice a day education on all medications SLUMS = 22 08/23/24 4. Excessive day and night-time sleepiness - improved 5. TBI hx 01/10/2025 MDD (major depressive disorder), recurrent episode, mild (ICD-10 - F33.0) 1. major depression - Zoloft 100 mg daily for depression and anxiety is living at [facility] presently- patient moved to [facility] labs PCP obtain- scheduled to be seen therapy- schedule mammogram human projectile ordered -TEST FIXTURE DES[employer]ER Dr. Darlene Brown surgery knee 08/07/23 rt [...] has situatinal stress with money and in fci 3. Vascular dementia - Aricept 10 mg at night Namenda 10 mg twice a day education on all medications SLUMS = 22 08/23/24 4. Excessive day and night-time sleepiness - improved 5. TBI hx 01/10/2025 Negative depression screening (ICD-10 - Z13.31) 1. major depression - Zoloft 100 mg daily for depression and anxiety is living at [facility] presently- patient moved to [facility] labs PCP obtain- scheduled to be seen therapy- schedule mammogram human projectile ordered -TEST FIXTURE DES[employer]ER Dr. Darlene Brown surgery knee 08/07/23 rt [...] has situatinal stress with money and in fci 3. Vascular dementia - Aricept 10 mg at night Namenda 10 mg twice a day education on all medications SLUMS = 22 08/23/24 4. Excessive day and night-time sleepiness - improved 5. TBI hx 01/24/2025 Encounter for screening for cardiovascular disorders (ICD-10 - Z13.6) no refills needed today 1. major depression - Zoloft 100 mg daily for depression and anxiety is living at [facility] presently- patient moved to [facility] labs PCP obtain- scheduled to be seen therapy- schedule mammogram human projectile ordered -TEST FIXTURE DES[employer]ER Dr. Darlene Brown surgery knee 08/07/23 rt [...] has situatinal stress with money and in fci 3. Vascular dementia - Aricept 10 mg at night Namenda 10 mg twice a day education on all medications SLUMS = 22 08/23/24 4. Excessive day and night-time sleepiness - improved 5. TBI hx 01/10/2025 Encounter for screening for depression (ICD-10 - Z13.31) 1. major depression - Zoloft 100 mg daily for depression and anxiety is living at [facility] presently- patient moved to [facility] labs PCP obtain- scheduled to be seen therapy- schedule mammogram human projectile ordered -TEST FIXTURE DES[employer]ER Dr. Darlene Brown surgery knee 08/07/23 rt [...] has situatinal stress with money and in fci 3. Vascular dementia - Aricept 10 mg at night Namenda 10 mg twice a day education on all medications SLUMS = 22 08/23/24 4. Excessive day and night-time sleepiness - improved 5. TBI hx 01/24/2025 Negative depression screening (ICD-10 - Z13.31) no refills needed today 1. major depression - Zoloft 100 mg daily for depression and anxiety is living at [facility] presently- patient moved to [place] labs PCP obtain- scheduled to be seen therapy- schedule mammogram human projectile ordered -TEST FIXTURE DESIGNER Dr. Darlene Brown surgery knee 08/07/23 rt [...] has situatinal stress with money and in fci 3. Vascular dementia - Aricept 10 mg at night Namenda 10 mg twice a day education on all medications SLUMS = 08/23/24 4. Excessive day and night-time sleepiness - improved 5. TBI hx 11/29/2024 Encounter for screening for cardiovascular disorders (ICD-10 - Z13.6) 1. major depression - Zoloft 100 mg daily for depression and anxiety is living at [facility] presently- patient moved to [facility] labs PCP obtain- scheduled to be seen therapy- schedule mammogram human projectile ordered -TEST FIXTURE DESIGNER Dr. Darlene Brown surgery knee 08/07/23 rt [...] has situatinal stress with money and in fci 3. Vascular dementia - Aricept 10 mg at night Namenda 10 mg twice a day education on all medications SLUMS = 08/23/24 4. Excessive day and night-time sleepiness - improved 5. TBI hx 10/11/2024 Generalized anxiety disorder (ICD-10 - F41.1) Learning About Generalized Anxiety Disorder material was published, Generalized Anxiety Disorder: Care Instructions material was published, Learning About Anxiety Disorders material was published 1. major depression - Zoloft 100 mg daily for depression and anxiety is living at [facility] presently patient moved to [facility] labs PCP obtain- scheduled to be seen therapy- schedule mammogram human projectile ordered -TEST FIXTURE DESIGNER Dr. Darlene Brown surgery knee 08/07/23 rt [...] has situatinal stress with money and in fci 3. Vascular dementia - Aricept 10 mg at night Namenda 10 mg twice a day education on all medications SLUMS = 22 08/23/24 4. Excessive day and night-time sleepiness - improved 5. TBI hx 09/01/2024 Generalized anxiety disorder (ICD-10 - F41.1) Learning About Generalized Anxiety Disorder material was published, Generalized Anxiety Disorder: Care Instructions material was published, Learning About Anxiety Disorders material was published 1. major depression - Zoloft 100 mg daily for depression and anxiety is living at [facility] presently patient moved to [place] labs PCP obtain- scheduled to be seen therapy- schedule mammogram human projectile ordered -TEST FIXTURE DESIGNER Dr. Darlene Brown surgery knee 08/07/23 rt [...] on serotonin syndrome 2. Generalized anxiety disorder -Venlafaxine 100 mg twice a day Buspar 15 mg twice a day 3. Vascular dementia - Aricept 10 mg at night Namenda 10 mg twice a day education on all medications SLUMS = 22 08/23/24 4. Excessive day and night-time sleepiness - 08/23/2024 Generalized anxiety disorder (ICD-10 - F41.1) Learning About Generalized Anxiety Disorder material was published, Generalized Anxiety Disorder: Care Instructions material was published, Learning About Anxiety Disorders material was published 1. major depression - D/C mirtazapine 7.5 mg at bed time - related to fatigue and hypersomnia Increase Zoloft 100 mg daily for depression and anxiety is living at [facility] presently patient moved [place] labs PCP obtain- scheduled to be seen therapy- schedule mammogram human projectile ordered -TEST FIXTURE DESIGNER Dr. Darlene Brown surgery knee 08/07/23 rt [...] on serotonin syndrome 2. Generalized anxiety disorder -Venlafaxine 100 mg twice a day Buspar 15 mg twice a day 3. Vascular dementia - Aricept 10 mg at night Namenda 10 mg twice a day education on all medications SLUMS = 22 08/23/24 4. Excessive day and night-time sleepiness - D/C Remeron 7.5 mg at bedtime 04/12/2024 Generalized anxiety disorder (ICD-10 - F41.1) Learning About Generalized Anxiety Disorder material was published, Generalized Anxiety Disorder: Care Instructions material was published, Learning About Anxiety Disorders material was published 1. Moderate recurrent major depression - mirtazapine 7.5 mg at bed time - recent GDR related to fatigue and hypersomnia Zoloft 50 mg daily for depression and anxiety labs PCP obtain- scheduled to be seen therapy- Patient would like to switch therapist in office schedule mammogram human projectile ordered -TEST FIXTURE DESIGNER Dr. Darlene Brown surgery knee 08/07/23 rt [...] on serotonin syndrome 2. Generalized anxiety disorder -Venlafaxine 100 mg twice a day Buspar 15 mg twice a day 3. Vascular dementia - Aricept 10 mg at night Namenda 10 mg twice a day education on all medications 4. Excessive day and night-time sleepiness - Remeron 7.5 mg at bedtime 02/16/2024 Primary insomnia (ICD-10 - F51.01) Insomnia: Care Instructions material was published 1. Moderate recurrent major depression - mirtazapine 7.5 mg at bed time - recent GDR related to fatigue and hypersomnia Zoloft 50 mg daily for depression and anxiety labs PCP obtain- scheduled to be seen therapy schedule mammogram human projectile ordered -TEST FIXTURE DESIGNER Dr. Darlene Brown surgery knee 08/07/23 rt knee planned left knee 03/02 SSRI side effects discussed including but not [...] treatmentand patient instructions. education on serotonin syndrome F33.1: Major depressive disorder, recurrent, moderatestablesert raline 50 mg tablet - Take 1 tablet(s) every day by oral route in the morning for 90 days. Qty: (90) tablet Refills: 0 [facility] [id number] TAKE 1 TABLET BY MOUTH TWICE DAILY Qty: (180) tablet Refills: 0 Pharmacy: [facility] [id number] IN [facility] mirtazapine 15 mg tablet - Take 0.5 tablet(s) every day by oral route at bedtime for 90 days, for depression. Qty: (45) tablet Refills: 0 Pharmacy: [facility] [id number] IN [facility] Note to Pharmacy: d/c 15 mg dose 2. Generalized anxiety disorder -Venlafaxine 100 mg twice a day Buspar 15 mg twice a day F41.1: Generalized anxiety disorder stable buspirone 15 mg tablet - TAKE 1 TABLET BY MOUTH TWICE DAILY Qty: (180) tablet Refills: 0 Pharmacy: [id number] [id number] IN [facility] 3. Vascular dementia -Aricept 10 mg at night Namenda 10 mg twice a dayeducation on all medications F01.50: Vascular dementia, unspecified severity, without behavioral disturbance, psychotic disturbance, mood disturbance, and anxiety memantine 10 mg tablet - Take 1 tablet(s) twice a day by oral route as directed for 90 days. Qty: (180) tablet Refills: 0 Pharmacy: [facility] [id number] IN [facility] donepezil 10 mg tablet - Take 1 tablet(s) every day by oral route at bedtime for 90 days. Qty: (90) tablet Refills: 0 Pharmacy: [facility] [id number] IN [facility] 4. Excessive day and night-time sleepiness - Remeron 7.5 mg at bedtime G47.19: Other hypersomnia 02/16/2024 Vascular dementia without behavioral disturbance (ICD-10 - F01.50) Multi-Infarct Dementia: Care Instructions material was published, Dementia: Care Instructions material was published, Alzheimer's Disease: Care Instructions material was published 1. Moderate recurrent major depression - mirtazapine 7.5 mg at bed time - recent GDR related to fatigue and hypersomnia Zoloft 50 mg daily for depression and anxiety labs PCP obtain- scheduled to be seen therapy schedule mammogram human projectile ordered -TEST FIXTURE DESIGNER Dr. Darlene Brown surgery knee 08/07/23 rt knee planned left knee 03/02 SSRI side effects discussed including but not [...] treatmentand patient instructions. education on serotonin syndrome F33.1: Major depressive disorder, recurrent, moderatestablesert raline 50 mg tablet - Take 1 tablet(s) every day by oral route in the morning for 90 days. Qty: (90) tablet Refills: 0 Pharmacy: [facility] [id number] [place] [facility] mg tablet - TAKE 1 TABLET BY MOUTH TWICE DAILY Qty: (180) tablet Refills: 0 Pharmacy: [facility] [id number] [place] [facility] mirtazapine 15 mg tablet - Take 0.5 tablet(s) every day by oral route at bedtime for 90 days, for depression. Qty: (45) tablet Refills: 0 Pharmacy: [facility] [id number] [place] [facility] Note to Pharmacy: d/c 15 mg dose 2. Generalized anxiety disorder -Venlafaxine 100 mg twice a day Buspar 15 mg twice a day F41.1: Generalized anxiety disorder stable buspirone 15 mg tablet - TAKE 1 TABLET BY MOUTH TWICE DAILY Qty: (180) tablet Refills: 0 Pharmacy: [facility] [id number] [place] [facility] 3. Vascular dementia -Aricept 10 mg at night Namenda 10 mg twice a dayeducation on all medications F01.50: Vascular dementia, unspecified severity, without behavioral disturbance, psychotic disturbance, mood disturbance, and anxiety memantine 10 mg tablet - Take 1 tablet(s) twice a day by oral route as directed for 90 days. Qty: (180) tablet Refills: 0 Pharmacy: [facility] [id number] [place] [facility] donepezil 10 mg tablet - Take 1 tablet(s) every day by oral route at bedtime for 90 days. Qty: (90) tablet Refills: 0 Pharmacy: [facility] [id number] [place] [facility] 4. Excessive day and night-time sleepiness - Remeron 7.5 mg at bedtime G47.19: Other hypersomnia 04/12/2024 Primary insomnia (ICD-10 - F51.01) Insomnia: Care Instructions material was published 1. Moderate recurrent major depression - mirtazapine 7.5 mg at bed time - recent GDR related to fatigue and hypersomnia Zoloft 50 mg daily for depression and anxiety labs PCP obtain- scheduled to be seen therapy- Patient would like to switch therapist in office schedule mammogram human projectile ordered -TEST FIXTURE DESIGNER Dr. Darlene Brown surgery knee 08/07/23 rt [...] on serotonin syndrome 2. Generalized anxiety disorder -Venlafaxine 100 mg twice a day Buspar 15 mg twice a day 3. Vascular dementia - Aricept 10 mg at night Namenda 10 mg twice a day education on all medications 4. Excessive day and night-time sleepiness - Remeron 7.5 mg at bedtime 08/23/2024 Primary insomnia (ICD-10 - F51.01) Insomnia: Care Instructions material was published 1. major depression - D/C mirtazapine 7.5 mg at bed time - related to fatigue and hypersomnia Increase Zoloft 100 mg daily for depression and anxiety is living at [facility] presently patient moved to [place] labs PCP obtain- scheduled to be seen therapy- schedule mammogram human projectile ordered -TEST FIXTURE DESIGNER Dr. Darlene Brown surgery knee 08/07/23 rt [...] on serotonin syndrome 2. Generalized anxiety disorder -Venlafaxine 100 mg twice a day Buspar 15 mg twice a day 3. Vascular dementia - Aricept 10 mg at night Namenda 10 mg twice a day education on all medications SLUMS = 22 08/23/24 4. Excessive day and night-time sleepiness - D/C Remeron 7.5 mg at bedtime 09/01/2024 Primary insomnia (ICD-10 - F51.01) Insomnia: Care Instructions material was published 1. major depression - Zoloft 100 mg daily for depression and anxiety is living at [facility] presently patient moved to [facility] labs PCP obtain- scheduled to be seen therapy- schedule mammogram human projectile ordered -TEST FIXTURE DESIGNER Dr. Darlene Brown surgery knee 08/07/23 rt [...] on serotonin syndrome 2. Generalized anxiety disorder -Venlafaxine 100 mg twice a day Buspar 15 mg twice a day 3. Vascular dementia - Aricept 10 mg at night Namenda 10 mg twice a day education on all medications SLUMS = 22 08/23/24 4. Excessive day and night-time sleepiness - 10/11/2024 Primary insomnia (ICD-10 - F51.01) Insomnia: Care Instructions material was published 1. major depression - Zoloft 100 mg daily for depression and anxiety is living at [facility] presently patient moved to [facility] labs PCP obtain- scheduled to be seen therapy- schedule mammogram human projectile ordered -TEST FIXTURE DESIGNER Dr. Darlene Brown surgery knee 08/07/23 rt [...] has situatinal stress with money and in fci 3. Vascular dementia - Aricept 10 mg at night Namenda 10 mg twice a day education on all medications SLUMS = 22 08/23/24 4. Excessive day and night-time sleepiness - improved 5. TBI hx 11/29/2024 Dietary counseling and surveillance (ICD-10 - Z71.3) 1. major depression - Zoloft 100 mg daily for depression and anxiety is living at [facility] presently- patient moved to [facility] labs PCP obtain- scheduled to be seen therapy- schedule mammogram human projectile ordered -TEST FIXTURE DESIGNER Dr. Darlene Brown surgery knee 08/07/23 rt [...] has situatinal stress with money and in fci 3. Vascular dementia - Aricept 10 mg at night Namenda 10 mg twice a day education on all medications SLUMS = 08/23/24 4. Excessive day and night-time sleepiness - improved 5. TBI hx 01/10/2025 Encounter for screening for cardiovascular disorders (ICD-10 - Z13.6) 1. major depression - Zoloft 100 mg daily for depression and anxiety is living at [facility] presently- patient moved to [place] labs PCP obtain- scheduled to be seen therapy- schedule mammogram human projectile ordered -TEST FIXTURE DESIGNER Dr. Darlene Brown surgery knee 08/07/23 rt [...] has situatinal stress with money and in fci 3. Vascular dementia - Aricept 10 mg [...] for depression and anxiety is living at [facility] presently- patient moved to [facility] labs PCP obtain- scheduled to be seen therapy- schedule mammogram human projectile ordered -TEST FIXTURE DESIGNER Dr. Darlene Brown surgery knee 08/07/23 rt [...] has situatinal stress with money and in fci 3. Vascular dementia - Aricept 10 mg at night Namenda 10 mg twice a day education on all medications SLUMS = 22 08/23/24 4. Excessive day and night-time sleepiness - improved 5. TBI hx 01/24/2025 Encounter for screening for depression (ICD-10 - Z13.31) no refills needed today 1. major depression - Zoloft 100 mg daily for depression and anxiety is living at [facility] presently- patient moved to [facility] labs PCP obtain- scheduled to be seen therapy- schedule mammogram human projectile ordered -TEST FIXTURE DESIGNER Dr. Darlene Brown surgery knee 08/07/23 rt [...] has situatinal stress with money and in fci 3. Vascular dementia - Aricept 10 mg at night Namenda 10 mg twice a day education on all medications SLUMS = 22 08/23/24 4. Excessive day and night-time sleepiness - improved 5. TBI hx 01/10/2025 Dietary counseling and surveillance (ICD-10 - Z71.3) 1. major depression - Zoloft 100 mg daily for depression and anxiety is living at [facility] presently- patient moved to [facility] labs PCP obtain- scheduled to be seen therapy- schedule mammogram human projectile ordered -TEST FIXTURE DESIGNER Dr. Darlene Brown surgery knee 08/07/23 rt [...] has situatinal stress with money and in fci 3. Vascular dementia - Aricept 10 mg at night Namenda 10 mg twice a day education on all medications SLUMS = 22 08/23/24 4. Excessive day and night-time sleepiness - improved 5. TBI hx 10/11/2024 Vascular dementia without behavioral disturbance (ICD-10 - F01.50) Multi-Infarct Dementia: Care Instructions material was published, Dementia: Care Instructions material was published, Alzheimer's Disease: Care Instructions material was published 1. major depression - Zoloft 100 mg daily for depression and anxiety is living at [facility] presently patient moved to [place] labs PCP obtain- scheduled to be seen therapy- schedule mammogram human projectile ordered -TEST FIXTURE DESIGNER Dr. Darlene Brown surgery knee 08/07/23 rt [...] has situatinal stress with money and in fci 3. Vascular dementia - Aricept 10 mg at night Namenda 10 mg twice a day education on all medications SLUMS = 22 08/23/24 4. Excessive day and night-time sleepiness - improved 5. TBI hx 11/29/2024 Major depressive disorder, recurrent, moderate (ICD-10 - F33.1) pateint would like to switch therapist 1. major depression - Zoloft 100 mg daily for depression and anxiety is living at [facility] presently- patient moved to [facility] labs PCP obtain- scheduled to be seen therapy- schedule mammogram human projectile ordered -TEST FIXTURE DESIGNER Dr. Darlene Brown surgery knee 08/07/23 rt [...] has situatinal stress with money and in fci 3. Vascular dementia - Aricept 10 mg at night Namenda 10 mg twice a day education on all medications SLUMS = 22 08/23/24 4. Excessive day and night-time sleepiness - improved 5. TBI hx 09/01/2024 Vascular dementia without behavioral disturbance (ICD-10 - F01.50) Multi-Infarct Dementia: Care Instructions material was published, Dementia: Care Instructions material was published, Alzheimer's Disease: Care Instructions material was published 1. major depression - Zoloft 100 mg daily for depression and anxiety is living at [facility] presently patient moved to [facility] labs PCP obtain- scheduled to be seen therapy- schedule mammogram human projectile ordered -TEST FIXTURE DESIGNER Dr. Darlene Brown surgery knee 08/07/23 rt [...] on serotonin syndrome 2. Generalized anxiety disorder -Venlafaxine 100 mg twice a day Buspar 15 mg twice a day 3. Vascular dementia - Aricept 10 mg at night Namenda 10 mg twice a day education on all medications SLUMS = 22 08/23/24 4. Excessive day and night-time sleepiness - 08/23/2024 Vascular dementia without behavioral disturbance (ICD-10 - F01.50) Multi-Infarct Dementia: Care Instructions material was published, Dementia: Care Instructions material was published, Alzheimer's Disease: Care Instructions material was published 1. major depression - D/C mirtazapine 7.5 mg at bed time - related to fatigue and hypersomnia Increase Zoloft 100 mg daily for depression and anxiety is living at [facility] presently patient moved to [place] labs PCP obtain- scheduled to be seen therapy- schedule mammogram human projectile ordered -TEST FIXTURE DESIGNER Dr. Darlene Brown surgery knee 08/07/23 rt [...] on serotonin syndrome 2. Generalized anxiety disorder -Venlafaxine 100 mg twice a day Buspar 15 mg twice a day 3. Vascular dementia - Aricept 10 mg at night Namenda 10 mg twice a day education on all medications SLUMS = 22 08/23/24 4. Excessive day and night-time sleepiness - D/C Remeron 7.5 mg at bedtime 04/12/2024 Vascular dementia without behavioral disturbance (ICD-10 - F01.50) Multi-Infarct Dementia: Care Instructions material was published, Dementia: Care Instructions material was published, Alzheimer's Disease: Care Instructions material was published 1. Moderate recurrent major depression - mirtazapine 7.5 mg at bed time - recent GDR related to fatigue and hypersomnia Zoloft 50 mg daily for depression and anxiety labs PCP obtain- scheduled to be seen therapy- Patient would like to switch therapist in office schedule mammogram human projectile ordered -TEST FIXTURE DESIGNER Dr. Darlene Brown surgery knee 08/07/23 rt [...] on serotonin syndrome 2. Generalized anxiety disorder -Venlafaxine 100 mg twice a day Buspar 15 mg twice a day 3. Vascular dementia - Aricept 10 mg at night Namenda 10 mg twice a day education on all medications 4. Excessive day and night-time sleepiness - Remeron 7.5 mg at bedtime 11/29/2024 Generalized anxiety disorder (ICD-10 - F41.1) Learning About Generalized Anxiety Disorder material was published, Generalized Anxiety Disorder: Care Instructions material was published, Learning About Anxiety Disorders material was published 1. major depression - Zoloft 100 mg daily for depression and anxiety is living at [facility] presently- patient moved to [facility] home labs PCP obtain- scheduled to be seen therapy- schedule mammogram human projectile ordered -TEST FIXTURE DESIGNER Dr. Darlene Brown surgery knee 08/07/23 rt [...] has situatinal stress with money and in fci 3. Vascular dementia - Aricept 10 mg at night Namenda 10 mg twice a day education on all medications SLUMS = 22 08/23/24 4. Excessive day and night-time sleepiness - improved 5. TBI hx 01/10/2025 Generalized anxiety disorder (ICD-10 - F41.1) Learning About Generalized Anxiety Disorder material was published, Generalized Anxiety Disorder: Care Instructions material was published, Learning About Anxiety Disorders material was published 1. major depression - Zoloft 100 mg daily for depression and anxiety is living at [facility] presently- patient moved to [facility] [place] labs PCP obtain- scheduled to be seen therapy- schedule mammogram human projectile ordered -TEST FIXTURE DESIGNER Dr. Darlene Brown surgery knee 08/07/23 rt [...] has situatinal stress with money and in fci 3. Vascular dementia - Aricept 10 mg at night Namenda 10 mg twice a day education on all medications SLUMS = 22 08/23/24 4. Excessive day and night-time sleepiness - improved 5. TBI hx 01/24/2025 Dietary counseling and surveillance (ICD-10 - Z71.3) no refills needed today 1. major depression - Zoloft 100 mg daily for depression and anxiety is living at [facility] presently- patient moved to [facility] labs PCP obtain- scheduled to be seen therapy- schedule mammogram human projectile ordered -TEST FIXTURE DESIGNER Dr. Darlene Brown surgery knee 08/07/23 rt [...] has situatinal stress with money and in fci 3. Vascular dementia - Aricept 10 mg at night Namenda 10 mg twice a day education on all medications SLUMS = 22 08/23/24 4. Excessive day and night-time sleepiness - improved 5. TBI hx 01/10/2025 Primary insomnia (ICD-10 - F51.01) Insomnia: Care Instructions material was published 1. major depression - Zoloft 100 mg daily for depression and anxiety is living at [facility] presently- patient moved to [facility] labs PCP obtain- scheduled to be seen therapy- schedule mammogram human projectile ordered -TEST FIXTURE DESIGNER Dr. Darlene Brown surgery knee 08/07/23 rt [...] has situatinal stress with money and in fci 3. Vascular dementia - Aricept 10 mg [...] for depression and anxiety is living at [facility] presently- patient moved to [facility] labs PCP obtain- scheduled to be seen therapy- schedule mammogram human projectile ordered -TEST FIXTURE DESIGNER Dr. Darlene Brown surgery knee 08/07/23 rt [...] has situatinal stress with money and in fci 3. Vascular dementia - Aricept 10 mg at night Namenda 10 mg twice a day education on all medications SLUMS = 22 08/23/24 4. Excessive day and night-time sleepiness - improved 5. TBI hx 11/29/2024 Primary insomnia (ICD-10 - F51.01) Insomnia: Care Instructions material was published 1. major depression - Zoloft 100 mg daily for depression and anxiety is living at [facility] presently- patient moved to [place] home labs PCP obtain- scheduled to be seen therapy- schedule mammogram human projectile ordered -TEST FIXTURE DESIGNER Dr. Darlene Brown surgery knee 08/07/23 rt [...] has situatinal stress with money and in fci 3. Vascular dementia - Aricept 10 mg at night Namenda 10 mg twice a day education on all medications SLUMS = 22 08/23/24 4. Excessive day and night-time sleepiness - improved 5. TBI hx 11/29/2024 Vascular dementia without behavioral disturbance (ICD-10 - F01.50) Multi-Infarct Dementia: Care Instructions material was published, Dementia: Care Instructions material was published, Alzheimer's Disease: Care Instructions material was published 1. major depression - Zoloft 100 mg daily for depression and anxiety is living at [facility] presently- patient moved to [place] labs PCP obtain- scheduled to be seen therapy- schedule mammogram human projectile ordered -TEST FIXTURE DESIGNER Dr. Darlene Brown surgery knee 08/07/23 rt [...] has situatinal stress with money and in fci 3. Vascular dementia - Aricept 10 mg [...] for depression and anxiety is living at [facility] presently- patient moved to [facility] labs PCP obtain- scheduled to be seen therapy- schedule mammogram human projectile ordered -TEST FIXTURE DESIGNER Dr. Darlene Brown surgery knee 08/07/23 rt [...] has situatinal stress with money and in fci 3. Vascular dementia - Aricept 10 mg at night Namenda 10 mg twice a day education on all medications SLUMS = 22 08/23/24 4. Excessive day and night-time sleepiness - improved 5. TBI hx 01/10/2025 Vascular dementia without behavioral disturbance (ICD-10 - F01.50) Multi-Infarct Dementia: Care Instructions material was published, Dementia: Care Instructions material was published, Alzheimer's Disease: Care Instructions material was published 1. major depression - Zoloft 100 mg daily for depression and anxiety is living at [facility] presently- patient moved to [place] labs PCP obtain- scheduled to be seen therapy- schedule mammogram human projectile ordered -TEST FIXTURE DESIGNER Dr. Darlene Brown surgery knee 08/07/23 rt [...] has situatinal stress with money and in fci 3. Vascular dementia - Aricept 10 mg [...] for depression and anxiety is living at [facility] presently- patient moved to [place] labs PCP obtain- scheduled to be seen therapy- schedule mammogram human projectile ordered -TEST FIXTURE DESIGNER Dr. Darlene Brown surgery knee 08/07/23 rt [...] has situatinal stress with money and in fci 3. Vascular dementia - Aricept 10 mg at night Namenda 10 mg twice a day education on all medications SLUMS = 22 08/23/24 4. Excessive day and night-time sleepiness - improved 5. TBI hx 02/16/2024 Other Sertraline Oral Tablet (SERTRALINE - ORAL) material was published, Mirtazapine Oral Tablet (MIRTAZAPINE - ORAL) material was published, Venlafaxine Oral Tablet (VENLAFAXINE - ORAL) material was published, Buspirone Oral Tablet (BUSPIRONE - ORAL) material was published, Donepezil Oral Tablet (DONEPEZIL - ORAL) material was published, Memantine Oral Tablet (MEMANTINE - ORAL) material was published 1. Moderate recurrent major depression - mirtazapine 7.5 mg at bed time - recent GDR related to fatigue and hypersomnia Zoloft 50 mg daily for depression and anxiety labs PCP obtain- scheduled to be seen therapy schedule mammogram human projectile ordered -TEST FIXTURE DESIGNER Dr. Darlene Brown surgery knee 08/07/23 rt knee planned left knee 03/02 SSRI side effects discussed including but not [...] treatmentand patient instructions. education on serotonin syndrome F33.1: Major depressive disorder, recurrent, moderatestablesert raline 50 mg tablet - Take 1 tablet(s) every day by oral route in the morning for 90 days. Qty: (90) tablet Refills: 0 Pharmacy: [facility] [id number] [place] mg tablet - TAKE 1 TABLET BY MOUTH TWICE DAILY Qty: (180) tablet Refills: 0 Pharmacy: [facility] [id number] [place] mirtazapine 15 mg tablet - Take 0.5 tablet(s) every day by oral route at bedtime for 90 days, for depression. Qty: (45) tablet Refills: 0 Pharmacy: [id number] [place] Note to Pharmacy: d/c 15 mg dose 2. Generalized anxiety disorder -Venlafaxine 100 mg twice a day Buspar 15 mg twice a day F41.1: Generalized anxiety disorder stable buspirone 15 mg tablet - TAKE 1 TABLET BY MOUTH TWICE DAILY Qty: (180) tablet Refills: 0 Pharmacy: [id number] [place] 3. Vascular dementia -Aricept 10 mg at night Namenda 10 mg twice a dayeducation on all medications F01.50: Vascular dementia, unspecified severity, without behavioral disturbance, psychotic disturbance, mood disturbance, and anxiety memantine 10 mg tablet - Take 1 tablet(s) twice a day by oral route as directed for 90 days. Qty: (180) tablet Refills: 0 Pharmacy: [id number] [place] donepezil 10 mg tablet - Take 1 tablet(s) every day by oral route at bedtime for 90 days. Qty: (90) tablet Refills: 0 Pharmacy: [id number] [place] 4. Excessive day and night-time sleepiness - Remeron 7.5 mg at bedtime G47.19: Other hypersomnia 04/12/2024 Other referral to the local chapter or national office of the Alzheimer's Association ( ; http://www.alz.org), the Alzheimer's Disease Education and Referral Center (ADEAR) ( ; http://www.elo.nih.go v/Alzheimers/), 1. Moderate recurrent major depression - mirtazapine 7.5 mg at bed time - recent GDR related to fatigue and hypersomnia Zoloft 50 mg daily for depression and anxiety labs PCP obtain- scheduled to be seen therapy- Patient would like to switch therapist in office schedule mammogram human projectile ordered -TEST FIXTURE DESIGNER Dr. Darlene Brown surgery knee 08/07/23 rt [...] on serotonin syndrome 2. Generalized anxiety disorder -Venlafaxine 100 mg twice a day Buspar 15 mg twice a day 3. Vascular dementia - Aricept 10 mg at night Namenda 10 mg twice a day education on all medications 4. Excessive day and night-time sleepiness - Remeron 7.5 mg at bedtime 08/23/2024 Other referral to the local chapter or national office of the Alzheimer's Association ( ; http://www.alz.org), the Alzheimer's Disease Education and Referral Center (ADECT) ( ; http://www.elo.nih.go v/Alzheimers/), 1. major depression - D/C mirtazapine 7.5 mg at bed time - related to fatigue and hypersomnia Increase Zoloft 100 mg daily for depression and anxiety is living at [facility] presently patient moved to [place] home labs PCP obtain- scheduled to be seen therapy- schedule mammogram human projectile ordered -TEST FIXTURE DESIGNER Dr. Darlene Brown surgery knee 08/07/23 rt [...] on serotonin syndrome 2. Generalized anxiety disorder -Venlafaxine 100 mg twice a day Buspar 15 mg twice a day 3. Vascular dementia - Aricept 10 mg at night Namenda 10 mg twice a day education on all medications SLUMS = 22 08/23/24 4. Excessive day and night-time sleepiness - D/C Remeron 7.5 mg at bedtime 10/11/2024 Other referral to the local chapter or national office of the Alzheimer's Association ( ; http://www.alz.org), the Alzheimer's Disease Education and Referral Center (ADECT) ( ; http://www.elo.nih. v/Alzheimers/), Notes: referral to the local chapter or national office of the Alzheimer's Association ( ; http://www.alz.org), the Alzheimer's Disease Education and Referral Center (ADECT) ( ; http://www.elo.nih. v/Alzheimers/), 1. major depression - Zoloft 100 mg daily for depression and anxiety is living at [facility] presently patient moved to [place] labs PCP obtain- scheduled to be seen therapy- schedule mammogram human projectile ordered -TEST FIXTURE DESIGNER Dr. Darlene Brown surgery knee 08/07/23 rt [...] has situatinal stress with money and in fci 3. Vascular dementia - Aricept 10 mg at night Namenda 10 mg twice a day education on all medications SLUMS = 22 08/23/24 4. Excessive day and night-time sleepiness - improved 5. TBI hx 01/10/2025 Other pateint would jared cardona to switch therapist 1. major depression - Zoloft 100 mg daily for depression and anxiety is living at [facility] presently- patient moved to [place] labs PCP obtain- scheduled to be seen therapy- schedule mammogram human projectile ordered -TEST FIXTURE DESIGNER Dr. Darlene Brown surgery knee 08/07/23 rt [...] has situatinal stress with money and in fci 3. Vascular dementia - Aricept 10 mg at night Namenda 10 mg twice a day education on all medications SLUMS = 22 08/23/24 4. Excessive day and night-time sleepiness - improved 5. TBI hx Plan Of Treatment Next Appt Details Provider Name:Ruthy Croft , 04/13/2025 02:00:00 PM, [address], [address], [address], Provider Name:Ruthy Croft , 04/25/2025 01:00:00 PM, [address], [address], [place], [address], Insurance Providers Payer Name Payer Address Payer Phone Subscriber Number Group Number Insured Name Patient Relationship to Insured Coverage Start Date Coverage End Date [employer] Medicare Replacement/ Advantage - Hmo [address] [place] [phone] [id number] Self - patient is the insured Medical (General) History Medical History History ICD Code Problems: Excessive day and night-time s leepiness Family tension Generalized anxiety disorder Memory impairment Moderate recurrent major depression Primary insomnia Vascular dementia , Anxiety Disorder: Y Depressi on Major: Y Blood Transfusions: Y Brain Injury: Y - shunt HX TBI Headaches: Y Headaches Migraines: Y Hypothyroidism: Y Past Psychiatric History: Anxiety Disord er,Major Depressive Episode undefined abdominal aortic aneurysm: No atrial fibrillation: No chronic fatigue syndrome: No essential tremor: No hyperlipidemia: No hypertension: No Parkinson's disease: No restless leg syndrome: No stroke: No subdural hematoma: No type 1 diabetes mellitus: No type 2 diabetes mellitus: No vitamin B12 deficiency: No vitamin D deficiency: No Surgical History Surgery Date(Month/Year) Cataract surgery (17650) Hysterectomy/revise vagina (32112) Sinus surgery 08/10/2019 Hysterectomy (22249) 11/13/1990 Other 12/29/1981 Any surgical history 01/31/1999 Neurosurgery 02/01/2015 Cataract Surgery Hysterectom y/revise vagina Sinus Surgery - 08/10/2019 Neurosurgery - 02/01/2015 Any Surgical History - 01/31/1999 Hysterectomy - 11/13/1990 Other - 12/29/1981 bilateral knee replacement
== END 2025-01-25 10:13 | disposition home or self-care (01) ==
PROVIDERS: PCP Family Medicine Adolescent Medicine; Visit Provider Family Medicine Adolescent Medicine
DX: M77.8 Other enthesopathies, not elsewhere classified (principal)
CPT/HCPCS: 73030

== ENCOUNTER 2025-05-09 08:55 | Outpatient (CLI) | payer OTHER, SELFPAY ==
--- NOTE | ~2025-05-09 | MM_ITS ---
EXAMINATION: MM screening [facility] BI w sharif HISTORY: Screening TECHNIQUE: Craniocaudal and mediolateral oblique 3-D tomosynthesis images were obtained and synthetic 2-D images were generated. CAD analysis was submitted and interpreted. COMPARISON: Comparison to multiple prior studies sequentially, with oldest reviewed study dated 07/13/2015. BREAST PARENCHYMAL COMPOSITION: Not dense: There are scattered areas of fibroglandular density. FINDINGS: There is no evidence of suspicious mass, calcification, or architectural distortion to suggest malignancy in either breast. There has been no suspicious interval change. IMPRESSION: 1. No mammographic evidence of malignancy. 2. Recommend routine screening mammography in one year. BI-RADS Category 1: Negative Reviewed, dictated and finalized at location B.
--- OUTSIDE RECORDS SUMMARY | 2025-05-09 09:21 | XMS_ITS | Clinical Summary ---
Author Organization [facility] [address] [place] [address] Care Team Providers Care Professor Of Genetics Name Role Phone Austin Quiroga MD Primary [...] tabletIndications :hypothyroidism Take 75 mcg by mouth it communications manager before breakfast 1 Active methylphenidate ER (CONCERTA) [...] 10/10/2021 Surgical History Surgery Date Site/Laterality Comments LEATHER CLEANER SHUNT INSERTION COLONOSCOPY OTHER SURGICAL HISTORY 08/10/1975 [...] on file Legal Sex Female 3:36 AM MEDICAL DEVICE ASSEMBLER Gender Identity Not on file Sexual Orientation [...] (191 lb 9.6 oz) 08/29/2022 12:50 PM MEDICAL DEVICE ASSEMBLER Height 157.5 cm (5' 2) 08/29/2022 12:50 PM MEDICAL DEVICE ASSEMBLER Body Mass Index 35.04 08/29/2022 12:50 PM MEDICAL DEVICE ASSEMBLER Plan of Treatment Health Maintenance Due Date Last Done Comments Breast Cancer Screening-Mammogram 1957 Colon Cancer Screening-Colonoscopy 1957 Depression Screening 1957 Hepatitis C Screening 1957 Osteoporosis Screening-Bone Density Scan 1957 Hepatitis B Screening 11/06/1975 Pneumococcal vaccine 65+ (1 of 1 - PCV) 11/06/2007 Zoster Vaccine (1 of 2) 11/06/2007 Well Visit 65+ 2022 Fall Risk Assessment 11/15/2022 11/15/2021 Covid-19 Vaccine ( - season) 2025, 10/16/2020 Influenza Vaccine (#1) 2025 DTaP/Tdap/Td Vaccine (2 - Td or Tdap) 10/11/203110/2021 Medical Devices Implanted Type Area Medical Records Administrator Device Identifier Shelf Expiration Date Model / Serial / Lot Branch Administrator Shunt N/A: Head [place] [address] [facility] [address], [id number] [facility] Care Teams Professor Of Genetics Relationship Specialty Start Date End Date Austin Quiroga MD PCP - General Family Medicine 06/21/21
--- OUTSIDE RECORDS SUMMARY | 2025-05-09 09:21 | XMS_ITS | Patient Health Record ---
Author Organization [facility] As [employer] Address [address] [place] [address] Care Team Providers Care Wave Guide Assembler Name Role Phone Austin Quiroga MD Primary Care Provider Shannan Ruthy Nunez Unavailable [phone] Allergies No Known Allergies Reason For Referral No Information Medications Medication SIG (Take, Route, Frequency, Duration) Notes Start Date End Date Status Meloxicam 7.5 MG Tablet Oral 12/22/2023 Active Topiramate 50 MG Tablet Oral 12/22/2023 Active Sertraline HCl 100 MG Tablet 1 tablet Oral Once a day; Duration: 90 days Active Myrbetriq 25 MG Tablet Extended Release 24 Hour Oral 12/22/2023 Not-Taking traMADol HCl 50 MG Tablet Oral 12/22/2023 Active Memantine HCl 10 MG Tablet 1 tablet Oral twice a day; Duration: 90 days Active Levothyroxine Sodium 75 MCG Tablet Oral 12/22/2023 Active Donepezil HCl 10 MG Tablet 1 tablet at bedtime Oral Once a day; Duration: 90 days Active busPIRone HCl 15 MG Tablet 1 tablet Oral Twice a day; Duration: 90 days 07/24/2025 Active Venlafaxine HCl 100 MG Tablet 1 tablet with food Oral twice a day; Duration: 90 days Active Atorvastatin Calcium 10 MG Tablet Oral 12/22/2023 Active Ketoconazole 2% Cream External 12/22/2023 Active Estradiol 0.01 % (0.1 mg/gram) Cream Vaginal *Pick strength-form from [employer] for eRX* 12/22/2023 Active oxyBUTYnin Chloride ER 10 MG Tablet Extended Release 24 Hour Oral 12/22/2023 Active SUMAtriptan Succinate 100 MG Tablet Oral 12/22/2023 Active Immunizations Vaccine Route Administration Date Status Comme nts Influenza, unspecified formulation Unknown 06/05/2022 A dministered Influenza, unspecified formulation Unknown 06/16/2023 A dministered Andres Covid-19 Vaccine Unknown 10/16/2020 Administere d Pfizer Biontech Covid-19 Vac cine 2nd dose Unknown 10/31/2021 Administered Social History Tobacco Use: Social History Observation Description Date Details (start date - stop date) Former Smoker 04/29/2018 - 07/29/1999 Sex Assigned At : Social History Observation Description Sex Assigned At Female Social History Miscellaneous: Social Info Question Answer Notes Advance Care Planning Advance Directive Do Not Intubat e Safety issues: Are there any firearms in the house? No Social History Social Info Question Answer Notes Household: Marital Status: Number of Adults in household: 2 Number of Children in Household: 0 Level of Education: Not Answered Household: Social Info Question Answer Notes Household Marital status: Number of adults in household: 2 Number of children in household: 0 Drug/Alcohol: Social Info Question Answer Notes Drugs Have you used drugs other than those for medical reasons in the past 12 months? No AUDIT-C (Standard) Points 1 Interpretation Positive Did you have a drink containing alcohol in the p ast year? Yes How often did you have six or more drinks on one occasion in the past year? Never (0 point) How many drinks did you have on a typical day when you were drinking in the past year? 1 or 2 drinks (0 point) How often did you have a drink containing alcohol in the past year? Monthly or less (1 point) Tobacco Use: Social Info Question Answer Notes Tobacco Control (Standard) Tobacco use: Former smoker When did you start smoking? 04/29/2018 When did you stop smoking? 07/29/1999 How long has it been since you last smoked? 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 Social History Migrated Social History Alcohol Intake: Occasional 10/14/2021,Tobacco Years: Former smoker 07/25/2021,Smoking Status: 07/25/2021 Section Notes: Do you or have you [...] currently in school?: NoAre you currently employed?: NoW is your employer?: Retired On disabilityMarriage and [...] YesDo you have a medical power of civil rights attorney?: YesPublic Health and TravelHave you been [...] YesDo you have a medical power of civil rights attorney?: YesPublic Health and TravelHave you been [...] YesDo you have a medical power of civil rights attorney?: YesPublic Health and TravelHave you been [...] Risk Notes Problem Moderate recurrent major depression (85655234) Major depressive disorder, recurrent, moderate (F33.1) 12/22/19 24 Active confirmed Problem Generalized anxiety disorder (93059278) Generalized anxiety disorder (F41.1) 12/22/19 24 Active confirmed Problem Primary insomnia (7440798) Primary insomnia (F51.01) 10/19/19 24 Active confirmed Problem Screening for cardiovascular system disease (175749945) Encounter for screening for cardiovascular disorders (Z13.6) Active confirmed Problem Dietary management surveillance (439675835) Dietary counseling and surveillance (Z71.3) Active confirmed Problem Depression Screening (662263899) Encounter for screening for depression (Z13.31) Active confirmed Problem Vascular dementia without behavioral disturbance (5143522880959721 9) Vascular dementia without behavioral disturbance (F01.50) 12/22/19 24 Active confirmed Problem Mild recurrent major depression (48917554) MDD (major depressive disorder), recurrent episode, mild (F33.0) Active confirmed Vital Signs Heart Rate 72 /min 04/13/2025 Respiratory Rate 17 /min 04/13/2025 Height-cm 158.75 cm 04/13/2025 Blood pressure diastolic 79 mm Hg 04/13/2025 Weight-kg 77.11 kg 04/13/2025 Height 62.50 in 04/13/2025 Blood pressure systolic 130 mm Hg 04/13/2025 Weight 170 lbs 04/13/2025 BMI 30.59 kg/m2 04/13/2025 Encounters Encounter Location Date Provider Diagnosis [facility] [employer] [address] [address] 08/23/2024 Ruthy Thervirgie Major depressive disorder, recurrent, moderate F33.1 ; Generalized anxiety disorder F41.1 ; Primary insomnia F51.01 and Vascular dementia without behavioral disturbance F01.50 [facility] [employer] [address] 09/01/2024 Ruthy Thervirgie Major depressive disorder, recurrent, moderate F33.1 ; Generalized anxiety disorder F41.1 ; Primary insomnia F51.01 and Vascular dementia without behavioral disturbance F01.50 [facility] [employer] [address] 10/11/2024 Ruthy Thervir[employer] Major depressive disorder, recurrent, moderate F33.1 ; Generalized anxiety disorder F41.1 ; Primary insomnia F51.01 and Vascular dementia without behavioral disturbance F01.50 [facility] [employer] [address] 11/29/2024 Ruthy Thervirgie Encounter for screen ing for depression Z13.31 ; Encounter for screening for cardiovascular disorders Z13.6 ; Dietary counseling and surveillance Z71.3 ; Major depressive disorder, recurrent, moderate F33.1 ; Generalized anxiety disorder F41.1 ; Primary insomnia F51.01 and Vascular dementia without behavioral disturbance F01.[address] [employer] [address] [address] 01/10/2025 Ruthy Thery Negative depression screening Z13.31 ; MDD (major depressive disorder), recurrent episode, mild F33.0 ; Encounter for screening for depression Z13.31 ; Encounter for screening for cardiovascular disorders Z13.6 ; Dietary counseling and surveillance Z71.3 ; Generalized anxiety disorder F41.1 ; Primary insomnia F51.01 and Vascular dementia without behavioral disturbance F01.50 [facility] [employer] [address] [facility] [address] [address] 01/24/2025 Ruthy Thervirgie Encounter for screen ing for cardiovascular disorders Z13.6 ; Negative depression screening Z13.31 ; MDD (major depressive disorder), recurrent episode, mild F33.0 ; Encounter for screening for depression Z13.31 ; Dietary counseling and surveillance Z71.3 ; Generalized anxiety disorder F41.1 ; Primary insomnia F51.01 and Vascular dementia without behavioral disturbance F01.[facility] [address] [address] 04/13/2025 Ruthy Thervirgie MDD (major depressiv e disorder), recurrent episode, mild F33.0 ; Generalized anxiety disorder F41.1 ; Primary insomnia F51.01 and Vascular dementia without behavioral disturbance F01.[address] [address] 04/25/2025 Ruthy Thervirgie MDD (major depressiv e disorder), recurrent episode, mild F33.0 ; Generalized anxiety disorder F41.1 ; Primary insomnia F51.01 and Vascular dementia without behavioral disturbance F01.[address] [address] 06/10/2024 Ruthy Thery [address] [address] 06/27/2024 Ruthy Thery [address] [address] 06/28/2024 Ruthy Thervirgie Assessments Encounter Date Diagnosis (ICD Code) Assessment Notes Treatment Notes Treatment Clinical Notes Section Notes 08/23/2024 Major depressive disorder, recurrent, moderate (ICD-10 - F33.1) pateint would like to switch therapist 1. major depression - D/C mirtazapine 7.5 mg at bed time - related to fatigue and hypersomnia Increase Zoloft 100 mg daily for depression and anxiety is living at 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 Darlene Brown surgery knee 08/07/23 rt knee planned left knee 8/24 SSRI side effects discussed including but not [...] for depression and anxiety is living at 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 Darlene Brown surgery knee 08/07/23 rt [...] for depression and anxiety is living at 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 Darlene Brown surgery knee 08/07/23 rt [...] has situatinal stress with money and in shelter 3. Vascular dementia - Aricept 10 mg at night Namenda 10 mg twice a day education on all medications SLUMS = 22 08/23/24 4. Excessive day and night-time sleepiness - improved 5. TBI hx 11/29/2024 Encounter for screening for depression (ICD-10 - Z13.31) 1. major depression - Zoloft 100 mg daily for depression and anxiety is living at 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 Darlene Brown surgery knee 08/07/23 rt [...] has situatinal stress with money and in shelter 3. Vascular dementia - Aricept 10 mg at night Namenda 10 mg twice a day education on all medications SLUMS = 22 08/23/24 4. Excessive day and night-time sleepiness - improved 5. TBI hx 01/10/2025 MDD (major depressive disorder), recurrent episode, mild (ICD-10 - F33.0) 1. major depression - Zoloft 100 mg daily for depression and anxiety is living at 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 Darlene Brown surgery knee 08/07/23 rt [...] has situatinal stress with money and in shelter 3. Vascular dementia - Aricept 10 mg at night Namenda 10 mg twice a day education on all medications SLUMS = 22 08/23/24 4. Excessive day and night-time sleepiness - improved 5. TBI hx 01/10/2025 Negative depression screening (ICD-10 - Z13.31) 1. major depression - Zoloft 100 mg daily for depression and anxiety is living at 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 Darlene Brown surgery knee 08/07/23 rt [...] has situatinal stress with money and in shelter 3. Vascular dementia - Aricept 10 mg at night Namenda 10 mg twice a day education on all medications SLUMS = 22 08/23/24 4. Excessive day and night-time sleepiness - improved 5. TBI hx 01/24/2025 Encounter for screening for cardiovascular disorders (ICD-10 - Z13.6) no refills needed today 1. major depression - Zoloft 100 mg daily for depression and anxiety is living at 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 Darlene Brown surgery knee 08/07/23 rt [...] has situatinal stress with money and in shelter 3. Vascular dementia - Aricept 10 mg at night Namenda 10 mg twice a day education on all medications SLUMS = 22 08/23/24 4. Excessive day and night-time sleepiness - improved 5. TBI hx 04/25/2025 MDD (major depressive disorder), recurrent episode, mild (ICD-10 - F33.0) no refills needed today 1. major depression - Zoloft 100 mg daily for depression and anxiety is living at [facility] presently- patient moved to [place] [facility] PCP obtain- scheduled to be seen therapy- schedule mammogram 05/09/25 graphite mill operator ordered -PUMP TENDER Dr. Darlene Brown surgery knee 08/07/23 rt [...] has situatinal stress with money and in shelter 3. Vascular dementia - Aricept 10 mg at night Namenda 10 mg twice a day education on all medications SLUMS = 22 08/23/24 4. Excessive day and night-time sleepiness - improved 5. TBI hx 04/13/2025 Generalized anxiety disorder (ICD-10 - F41.1) Learning About Generalized Anxiety Disorder material was published, Generalized Anxiety Disorder: Care Instructions material was published, Learning About Anxiety Disorders material was published no refills needed today 1. major depression - Zoloft 100 mg daily for depression and anxiety is living at [facility] presently- patient moved to [place] [facility] PCP obtain- scheduled to be seen therapy- schedule mammogram 05/09/25 graphite mill operator ordered -PUMP TENDER Dr. Darlene Brown surgery knee 08/07/23 rt [...] has situatinal stress with money and in shelter 3. Vascular dementia - Aricept 10 mg at night Namenda 10 mg twice a day education on all medications SLUMS = 22 08/23/24 4. Excessive day and night-time sleepiness - improved 5. TBI hx 04/13/2025 MDD (major depressive disorder), recurrent episode, mild (ICD-10 - F33.0) no refills needed today 1. major depression - Zoloft 100 mg daily for depression and anxiety is living at [facility] presently- patient moved to [place] [facility] PCP obtain- scheduled to be seen therapy- schedule mammogram 05/09/25 graphite mill operator ordered -PUMP TENDER Dr. Darlene Brwon surgery knee 08/07/23 rt knee planned left [...] has situatinal stress with money and in shelter 3. Vascular dementia - Aricept 10 mg at night Namenda 10 mg twice a day education on all medications SLUMS = 22 08/23/24 4. Excessive day and night-time sleepiness - improved 5. TBI hx 04/13/2025 Primary insomnia (ICD-10 - F51.01) Insomnia: Care Instructions material was published no refills needed today 1. major depression - Zoloft 100 mg daily for depression and anxiety is living at [facility] presently- patient moved to [place] [facility] PCP obtain- scheduled to be seen therapy- schedule mammogram 05/09/25 graphite mill operator ordered -PUMP TENDER Dr. Darlene Brown surgery knee 08/07/23 rt [...] has situatinal stress with money and in shelter 3. Vascular dementia - Aricept 10 mg at night Namenda 10 mg twice a day education on all medications SLUMS = 22 08/23/24 4. Excessive day and night-time sleepiness - improved 5. TBI hx 01/10/2025 Encounter for screening for depression (ICD-10 - Z13.31) 1. major depression - Zoloft 100 mg daily for depression and anxiety is living at 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 Darlene Brown surgery knee 08/07/23 rt [...] has situatinal stress with money and in shelter 3. Vascular dementia - Aricept 10 mg at night Namenda 10 mg twice a day education on all medications SLUMS = 22 08/23/24 4. Excessive day and night-time sleepiness - improved 5. TBI hx 01/24/2025 Negative depression screening (ICD-10 - Z13.31) no refills needed today 1. major depression - Zoloft 100 mg daily for depression and anxiety is living at 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 Darlene Brown surgery knee 08/07/23 rt [...] has situatinal stress with money and in shelter 3. Vascular dementia - Aricept 10 mg at night Namenda 10 mg twice a day education on all medications SLUMS = 22 08/23/24 4. Excessive day and night-time sleepiness - improved 5. TBI hx 04/25/2025 Generalized anxiety disorder (ICD-10 - F41.1) Learning About Generalized Anxiety Disorder material was published, Generalized Anxiety Disorder: Care Instructions material was published, Learning About Anxiety Disorders material was published no refills needed today 1. major depression - Zoloft 100 mg daily for depression and anxiety is living at [facility] presently- patient moved to [place] [facility] PCP obtain- scheduled to be seen therapy- schedule mammogram 05/09/25 graphite mill operator ordered -PUMP TENDER Dr. Darlene Brown surgery knee 08/07/23 rt [...] has situatinal stress with money and in shelter 3. Vascular dementia - Aricept 10 mg at night Namenda 10 mg twice a day education on all medications SLUMS = 22 08/23/24 4. Excessive day and night-time sleepiness - improved 5. TBI hx 11/29/2024 Encounter for screening for cardiovascular disorders (ICD-10 - Z13.6) 1. major depression - Zoloft 100 mg daily for depression and anxiety is living at 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 Darlene Brown surgery knee 08/07/23 rt [...] has situatinal stress with money and in shelter 3. Vascular dementia - Aricept 10 mg [...] for depression and anxiety is living at 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 Darlene Brown surgery knee 08/07/23 rt [...] has situatinal stress with money and in shelter 3. Vascular dementia - Aricept 10 mg [...] for depression and anxiety is living at 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 Darlene Brown surgery knee 08/07/23 rt [...] for depression and anxiety is living at 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 Darlene Brown surgery knee 08/07/23 rt [...] - D/C Remeron 7.5 mg at bedtime 08/23/2024 Primary insomnia (ICD-10 - F51.01) Insomnia: Care Instructions material was published 1. major depression - D/C mirtazapine 7.5 mg at bed time - related to fatigue and hypersomnia Increase Zoloft 100 mg daily for depression and anxiety is living at 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 Darlene Brown surgery knee 08/07/23 rt [...] for depression and anxiety is living at 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 Darlene Brown surgery knee 08/07/23 rt [...] for depression and anxiety is living at 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 Darlene Brown surgery knee 08/07/23 rt [...] has situatinal stress with money and in shelter 3. Vascular dementia - Aricept 10 mg at night Namenda 10 mg twice a day education on all medications SLUMS = 08/23/24 4. Excessive day and night-time sleepiness - improved 5. TBI hx 11/29/2024 Dietary counseling and surveillance (ICD-10 - Z71.3) 1. major depression - Zoloft 100 mg daily for depression and anxiety is living at 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 Darlene Brown surgery knee 08/07/23 rt [...] has situatinal stress with money and in shelter 3. Vascular dementia - Aricept 10 mg at night Namenda 10 mg twice a day education on all medications SLUMS = 08/23/24 4. Excessive day and night-time sleepiness - improved 5. TBI hx 04/25/2025 Primary insomnia (ICD-10 - F51.01) Insomnia: Care Instructions material was published no refills needed today 1. major depression - Zoloft 100 mg daily for depression and anxiety is living at [facility] presently- patient moved to [place] [facility] PCP obtain- scheduled to be seen therapy- schedule mammogram 05/09/25 graphite mill operator ordered -PUMP TENDER Dr. Darlene Brown surgery knee 08/07/23 rt [...] has situatinal stress with money and in shelter 3. Vascular dementia - Aricept 10 mg at night Namenda 10 mg twice a day education on all medications SLUMS = 22 08/23/24 4. Excessive day and night-time sleepiness - improved 5. TBI hx 01/10/2025 Encounter for screening for cardiovascular disorders (ICD-10 - Z13.6) 1. major depression - Zoloft 100 mg daily for depression and anxiety is living at 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 Darlene Brown surgery knee 08/07/23 rt [...] has situatinal stress with money and in shelter 3. Vascular dementia - Aricept 10 mg at night Namenda 10 mg twice a day education on all medications SLUMS = 22 08/23/24 4. Excessive day and night-time sleepiness - improved 5. TBI hx 04/13/2025 Vascular dementia without behavioral disturbance (ICD-10 - F01.50) Multi-Infarct Dementia: Care Instructions material was published, Dementia: Care Instructions material was published, Alzheimer's Disease: Care Instructions material was published no refills needed today 1. major depression - Zoloft 100 mg daily for depression and anxiety is living at [facility] presently- patient moved to [facility] [place] labs PCP obtain- scheduled to be seen therapy- schedule mammogram 05/09/25 graphite mill operator ordered -PUMP TENDER Dr. Darlene Brown surgery knee 08/07/23 rt [...] has situatinal stress with money and in shelter 3. Vascular dementia - Aricept 10 mg [...] for depression and anxiety is living at 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 Darlene Brown surgery knee 08/07/23 rt [...] has situatinal stress with money and in shelter 3. Vascular dementia - Aricept 10 mg at night Namenda 10 mg twice a day education on all medications SLUMS = 22 08/23/24 4. Excessive day and night-time sleepiness - improved 5. TBI hx 01/24/2025 Encounter for screening for depression (ICD-10 - Z13.31) no refills needed today 1. major depression - Zoloft 100 mg daily for depression and anxiety is living at 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 Darlene Brown surgery knee 08/07/23 rt [...] has situatinal stress with money and in shelter 3. Vascular dementia - Aricept 10 mg at night Namenda 10 mg twice a day education on all medications SLUMS = 22 08/23/24 4. Excessive day and night-time sleepiness - improved 5. TBI hx 01/10/2025 Dietary counseling and surveillance (ICD-10 - Z71.3) 1. major depression - Zoloft 100 mg daily for depression and anxiety is living at 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 Darlene Brown surgery knee 08/07/23 rt [...] has situatinal stress with money and in shelter 3. Vascular dementia - Aricept 10 mg at night Namenda 10 mg twice a day education on all medications SLUMS = 08/23/24 4. Excessive day and night-time sleepiness - improved 5. TBI hx 04/25/2025 Vascular dementia without behavioral disturbance (ICD-10 - F01.50) Multi-Infarct Dementia: Care Instructions material was published, Dementia: Care Instructions material was published, Alzheimer's Disease: Care Instructions material was published no refills needed today 1. major depression - Zoloft 100 mg daily for depression and anxiety is living at [facility] presently- patient moved to [facility] labs PCP obtain- scheduled to be seen therapy- schedule mammogram 05/09/25 graphite mill operator ordered -PUMP TENDER Dr. Darlene Brown surgery knee 08/07/23 rt [...] has situatinal stress with money and in shelter 3. Vascular dementia - Aricept 10 mg [...] for depression and anxiety is living at 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 Darlene Brown surgery knee 08/07/23 rt [...] has situatinal stress with money and in shelter 3. Vascular dementia - Aricept 10 mg [...] for depression and anxiety is living at 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 Darlene Brown surgery knee 08/07/23 rt [...] has situatinal stress with money and in shelter 3. Vascular dementia - Aricept 10 mg [...] for depression and anxiety is living at 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 Darlene Brown surgery knee 08/07/23 rt [...] for depression and anxiety is living at 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 Darlene Brown surgery knee 08/07/23 rt [...] - D/C Remeron 7.5 mg at bedtime 11/29/2024 Generalized anxiety disorder (ICD-10 - F41.1) Learning About Generalized Anxiety Disorder material was published, Generalized Anxiety Disorder: Care Instructions material was published, Learning About Anxiety Disorders material was published 1. major depression - Zoloft 100 mg daily for depression and anxiety is living at 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 Darlene Brown surgery knee 08/07/23 rt [...] has situatinal stress with money and in shelter 3. Vascular dementia - Aricept 10 mg at night Namenda 10 mg twice a day education on all medications SLUMS = 22 08/23/24 4. Excessive day and night-time sleepiness - improved 5. TBI hx 01/24/2025 Dietary counseling and surveillance (ICD-10 - Z71.3) no refills needed today 1. major depression - Zoloft 100 mg daily for depression and anxiety is living at 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 Darlene Brown surgery knee 08/07/23 rt [...] has situatinal stress with money and in shelter 3. Vascular dementia - Aricept 10 mg [...] for depression and anxiety is living at 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 Darlene Brown surgery knee 08/07/23 rt [...] has situatinal stress with money and in shelter 3. Vascular dementia - Aricept 10 mg at night Namenda 10 mg twice a day education on all medications SLUMS = 08/23/24 4. Excessive day and night-time sleepiness - improved 5. TBI hx 01/10/2025 Primary insomnia (ICD-10 - F51.01) Insomnia: Care Instructions material was published 1. major depression - Zoloft 100 mg daily for depression and anxiety is living at 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 Darlene Brown surgery knee 08/07/23 rt [...] has situatinal stress with money and in shelter 3. Vascular dementia - Aricept 10 mg [...] for depression and anxiety is living at 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 Darlene Brown surgery knee 08/07/23 rt [...] has situatinal stress with money and in shelter 3. Vascular dementia - Aricept 10 mg at night Namenda 10 mg twice a day education on all medications SLUMS = 22 08/23/24 4. Excessive day and night-time sleepiness - improved 5. TBI hx 11/29/2024 Primary insomnia (ICD-10 - F51.01) Insomnia: Care Instructions material was published 1. major depression - Zoloft 100 mg daily for depression and anxiety is living at 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 Darlene Brown surgery knee 08/07/23 rt [...] has situatinal stress with money and in shelter 3. Vascular dementia - Aricept 10 mg [...] for depression and anxiety is living at 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 Darlene Brown surgery knee 08/07/23 rt [...] has situatinal stress with money and in shelter 3. Vascular dementia - Aricept 10 mg [...] for depression and anxiety is living at 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 Darlene Brown surgery knee 08/07/23 rt [...] has situatinal stress with money and in shelter 3. Vascular dementia - Aricept 10 mg [...] for depression and anxiety is living at 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 Darlene Brown surgery knee 08/07/23 rt [...] has situatinal stress with money and in shelter 3. Vascular dementia - Aricept 10 mg [...] for depression and anxiety is living at 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 Darlene Brown surgery knee 08/07/23 rt [...] has situatinal stress with money and in shelter 3. Vascular dementia - Aricept 10 mg at night Namenda 10 mg twice a day education on all medications SLUMS = 22 08/23/24 4. Excessive day and night-time sleepiness - improved 5. TBI hx 08/23/2024 Other referral to the local chapter or national office of the Alzheimer's Association ( ; http://www.alz. org), the Alzheimer's Disease Education and Referral [facility] (ADEAR) ( ; http://www.elo. nih.gov/Alzheim ers/), 1. major depression - D/C mirtazapine 7.5 mg at bed time - related to fatigue and hypersomnia Increase Zoloft 100 mg daily for depression and anxiety is living at 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 Darlene Brown surgery knee 08/07/23 rt [...] office of the Alzheimer's Association ( ; http://www.alz. org), the Alzheimer's Disease Education and Referral [facility] (ADEOK) ( ; http://www.elo. nih.gov/Alzheim ers/), Notes: referral to the local chapter or national office of the Alzheimer's Association ( ; http://www.alz. org), the Alzheimer's Disease Education and Referral Center (ADEOK) ( ; http://www.elo. nih.gov/Alzheim ers/), 1. major depression - Zoloft 100 mg daily for depression and anxiety is living at 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 Darlene Brown surgery knee 08/07/23 rt [...] has situatinal stress with money and in shelter 3. Vascular dementia - Aricept 10 mg at night Namenda 10 mg twice a day education on all medications SLUMS = 22 08/23/24 4. Excessive day and night-time sleepiness - improved 5. TBI hx 01/10/2025 Other pateint would like to switch therapist 1. major depression - Zoloft 100 mg daily for depression and anxiety is living at 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 Darlene Brown surgery knee 08/07/23 rt [...] has situatinal stress with money and in shelter 3. Vascular dementia - Aricept 10 mg at night Namenda 10 mg twice a day education on all medications SLUMS = 22 08/23/24 4. Excessive day and night-time sleepiness - improved 5. TBI hx Plan Of Treatment Next Appt Details Provider Name:Ruthy Croft , 07/04/2025 01:30:00 PM, [address], [address], [place], [address], Provider Name:Ruthy Croft , 07/25/2025 01:30:00 PM, [address], [address], [place], [address], Insurance Providers Payer Name Payer Address Payer Phone Subscriber Number Group Number Insured Name Patient Relationship to Insured Coverage Start Date Coverage End Date [facility] Medicare Replacement/ Advantage - [employer]mo [address] [place] [phone] [id number] FINESSE ROJO Self - patient is the insured Medical (General) History Medical History History ICD Code Problems: Excessive day and night-time s leepiness Family tension Generalized anxiety disorder Memory impairment Moderate recurrent major depression Primary insomnia Vascular dementia TBI Anxiety Disorder: Y Depressi on Major: Y [...] No Surgical History Surgery Date(Month/Year) Cataract surgery (92726) Hysterectomy/revise vagina (52469) Sinus surgery 08/10/2019 Hysterectomy (30258) 11/13/1990 Other 12/29/1981 Any surgical history 01/31/1999 Neurosurgery 02/01/2015 Cataract Surgery Hysterectom y/revise vagina Sinus Surgery - 08/10/2019 Neurosurgery - 02/01/2015 Any Surgical History - 01/31/1999 Hysterectomy - 11/13/1990 Other - 12/29/1981 bilateral knee replacement
== END 2025-05-09 08:56 | disposition home or self-care (01) ==
PROVIDERS: PCP Nurse Practitioner Family; Visit Provider Obstetrics & Gynecology
DX: Z12.31 Encounter for screening mammogram for malignant neoplasm of breast (principal)
CPT/HCPCS: 77063; 77067